=== PATIENT | female | born 1955 | race Caucasian/White ===

== ENCOUNTER 2021-09-21 14:22 | Emergency (ER) | payer MEDICARE, SELFPAY ==
[2021-09-21 14:23] VITALS: BP 188/133; PULSE 103; RESP 16; TEMP 36.4; O2SAT 100; BMI 27.3
--- NOTE | 2021-09-21 15:26 | CT_ITS ---
CT of the left leg without contrast INDICATION: Leg wound TECHNIQUE: Multiple thin section axial CT images of the left leg were obtained from the knee to the ankle without the administration of intravenous contrast and filmed in soft tissue and bone windows. Furthermore, multiple sagittal and coronal reconstructions were performed. Dose limiting techniques were utilized. FINDINGS: There is a linear defect within the soft tissues posterior medially medial to the gastrocnemius muscle filled with fluid and gas consistent with a laceration or infection. No definite loculated fluid collection to suggest hematoma or abscess. No acute fracture or dislocation. No lytic or blastic lesions. No bone destruction to suggest osteomyelitis. CT/Extremity Lower without Contra IMPRESSION: Laceration or infection with sinus tract posterior medially but no abscess or osteomyelitis. Electronically Signed: Amrik Gustafson MD at 16:55 EDT ,
--- NOTE | 2021-09-21 15:27 | EDS_ITS ---
HPI History of Present Illness Chief Complaint: Abscess Informant: patient Onset/Context/Timing Onset: Weeks Context: Gradual Onset Current Severity: Mild Maximum Severity: Moderate Narrative Narrative: Patient presents secondary to left posterior leg injury. She states that she fell going up some steps on August 25. She had a swollen wound on the back of her left leg. Over the past couple days it is opened and drained serosanguineous fluid. She went to urgent care who was concerned and sent her to the emergency room. She denies fever or chills. [facility] Medical History Addisons disease Fibromyalgia Hx of gastroesophageal reflux (GERD) Hypothyroidism Migraines Raynauds disease Home Medications doxycycline monohydrate 100 mg capsule 100 mg PO BID #20 caps 09/21/21 [Rx Last Taken Unknown] Allergy/AdvReac Type Severity Reaction Status Date / Time amoxicillin [From Trimox] Allergy Rash Verified 09/21/21 14:28 cyclobenzaprine Allergy Rash Verified 09/21/21 14:28 [From Flexeril] erythromycin base Allergy Vomiting Verified 09/21/21 14:28 [From Luis Fernando-Tab] Iodinated Contrast Media Allergy Rash Verified 09/21/21 14:28 Sulfa (Sulfonamide Allergy Rash Verified 09/21/21 14:28 Antibiotics) methylprednisolone AdvReac Other Verified 09/21/21 14:28 [From Medrol] Social History Smoking Status: Never smoker ROS ROS ED Constitutional Constitutional ED: Denies chills or fever(s) Eyes Eyes: Denies change in vision or discharge from eye(s) ENT ENT ED: Denies discharge from eye(s), rhinorrhea or sore throat Cardiovascular Cardiovascular: Denies chest pain or palpitations Respiratory/Chest Respiratory/Chest: Denies cough or dyspnea Gastrointestinal Gastrointestinal: Denies abdominal pain, diarrhea, nausea or vomiting Genitourinary Genitourinary ED: Denies difficulty urinating or dysuria Musculoskeletal Musculoskeletal: Reports extremity pain; Denies back pain Integumentary Reports other Details: Left posterior leg wound ; Denies Abrasions or rash Neurologic Neurologic: Denies headache(s) or weakness Psychiatric Psychiatric: Denies anxiety or depression Allergic/Immunologic Allergic/Immunologic ED: Denies lip swelling or urticaria EXAM Physical Exam Const Vital Signs: 09/21/21 14:23 Temperature 97.6 F L Temperature Source Temporal Pulse Rate 103 H Respiratory Rate 16 Blood Pressure 188/133 H Blood Pressure Mean 151 Pulse Ox 100 Oxygen Delivery Method Room Air Positive well nourished and well developed General Appearance ED: well developed HEENT Reports normocephalic and head/scalp atraumatic Eyes PERRL and EOMs intact bilaterally Neck supple Chest Wall inspection of chest normal and palpation of chest normal Resp normal respiratory effort and clear to auscultation bilaterally Cardio regular rate and regular rhythm GI normal to inspection, nondistended, normoactive bowel sounds Palpation: soft Extremity Extremity Narrative: Open wound measuring approximately 5 cm in diameter over the posterior left lower leg. Minimal surrounding erythema. Drainage is serosanguineous fluid only. Neuro oriented x3 and no sensory deficits noted Sensorium / Orientation: alert Motor Exam: strength 5/5 throughout Psych mental status grossly normal Skin no rashes or lesions noted MDM MDM MDM Narrative Medical decision making narrative: Lab work obtained and patient sent for a CT scan of the lower extremity. Lab Data Labs: Laboratory Results - last 24 hr 09/21/21 09/21/21 16:17 16:17 WBC 11.6 H RBC 4.49 Hgb 14.3 Hct 43.2 MCV 96.2 MCH 31.8 MCHC 33.1 RDW Std Deviation 44.3 H RDW Coeff of Amy 12.4 Plt Count 342 MPV 9.7 Immature Gran % (Auto) 0.600 Neut % (Auto) 67.7 Lymph % (Auto) 23.1 Kimball % (Auto) 7.2 Eos % (Auto) 0.9 Baso % (Auto) 0.5 Absolute Neuts (auto) 7.9 H Absolute Lymphs (auto) 2.68 Nucleated RBC % 0 Sodium 139 Potassium 3.5 Chloride 105 Carbon Dioxide 29.0 Anion Gap 5 BUN 14 Creatinine 0.74 Estim Creat Clear Calc 54.44 Est GFR (MDRD) Af Amer 100 Est GFR (MDRD) Non-Af 83 BUN/Creatinine Ratio 18.8 Glucose 169 H Calcium 8.8 Radiography Diagnostic Testing: Clinical Impression(s) from Imaging Studies Lower Extremity CT 09/21/21 15:26 IMPRESSION: Laceration or infection with sinus tract posterior medially but no abscess or osteomyelitis. Electronically Signed: Amrik Gustafson MD at 16:55 EDT , Treatment and Re-Evaluation Narrative: Lab work significant only for a white count 11.6 with normal differential. I suspect this may be secondary to her chronic steroid use given her [place]'s disease. Chemistry studies unremarkable. CT scan reveals laceration or infection with a sinus tract but no abscess or osteomyelitis. Clinically this looks like a drained hematoma. Will be cleansed and dressed. I will start her on doxycycline. She will be given the wound centers number for follow-up. Discharge Plan Triage Chief Complaint: Abscess ED Provider: Audrey Bell Dx/Rx/DC Orders Clinical Impression: Leg wound, left Instructions: ED Wound Care Prescriptions: New doxycycline monohydrate 100 mg capsule 100 mg PO BID Qty: 20 0RF Primary Care Provider: Care Physician,No Primary Referrals: NOT,DEFINED [Non-Staff] - Center,Wound [Non-Staff] - As soon as possible Disposition Disposition: Home, Self Care
[2021-09-21 16:33] LABS: Absolute Lymphocyte Count 2.68 X10^3/uL (0.83-4.51); Absolute Neutrophil Count 7.9 X10^3/uL (2.0-7.7); Basophil# 0.06 X10^3/uL; Basophil% 0.5 % (0-1); Eosinophils% 0.9 % (0-5); Hematocrit 43.2 % (37-47); Hemoglobin 14.3 g/dL (12.0-15.0); Lymphocyte # 2.68 X10^3/ul (0.83-4.51); Lymphocyte % 23.1 % (19-41); Mean Corp Hgb Conc 33.1 g/dL (32-36); Mean Corpuscular Hgb 31.8 pg (27.0-32.0); Mean Corpuscular Volume 96.2 fL (81-99); Mean Platelet Vol. 9.7 fl (6.2-12.0); Monocyte# 0.84 X10^3/uL; Monocyte% 7.2 % (0-10); NRBC Flagged by Analyzer 0 % (0-5); Neutrophil # 7.85 X10^3/uL (2.7-7.7); Neutrophil % 67.7 % (47-70); Platelet Count 342 K/mm3 (150-450); RBC Distribution Width CV 12.4 % (11.6-14.6); RBC Distribution Width SD 44.3 fl (35.1-43.9); Red Blood Count 4.49 M/mm3 (4.2-5.4); White Blood Count 11.6 K/mm3 (4.4-11.0)
[2021-09-21 16:46] LABS: Anion Gap 5 (5-15); BUN 14 mg/dL (7-18); BUN/Creat Ratio 18.8 RATIO (10-20); Calcium,Total 8.8 mg/dL (8.5-10.1); Chloride 105 mmol/L (98-107); Creatinine, Serum 0.74 mg/dL (0.55-1.02); EST Glomerular Filtration Rate 83 mL/min (>60); Est Glom Filt Rate - Afr Amer 100 mL/min (>60); Estimated Creatinine Clearance 54.44 ml/min; Glucose 169 mg/dL (74-106); Potassium 3.5 mmol/L (3.5-5.1); Sodium Level 139 mmol/L (136-145)
[2021-09-21] MEDS: Doxycycline 100 MG CAPSULE PO (17:45)
[2021-09-21 17:54] VITALS: BP 147/76; PULSE 97; RESP 18; O2SAT 99
== END 2021-09-21 17:58 | disposition home or self-care (01) ==
PROVIDERS: Emergency Provider Emergency Medicine; Visit Provider Emergency Medicine
DX: S81.802A Unspecified open wound, left lower leg, initial encounter (principal); E27.1 Primary adrenocortical insufficiency; W10.9XXA Fall (on) (from) unspecified stairs and steps, initial encounter; Z79.52 Long term (current) use of systemic steroids
CPT/HCPCS: 36415; 73700; 80048; 85025; 87040; 99284; A4216

== ENCOUNTER 2021-09-29 14:15 | Outpatient (RCR) | payer MEDICARE, SELFPAY ==
[2021-09-22 13:08] VITALS: RESP 16; TEMP 36.3
--- NOTE | 2021-09-22 16:38 | PCM.WC.HP ---
History of Present Illness Date of Service: 09/22/21 Chief Complaint: Left posterior leg wound History of Wound: Patient is a 66 year old female who presents today for evaluation of her left posterior leg wound. She fell walking up her steps in the dark and she hit her anterior left leg very hard on 08/25/21. A few days later she developed a bruise on the back of her left leg. She states that the bruise started to resolve but then she went square dancing two days in a row over the weekend, the wound opened and drained serosanguineous drainage and became very painful and red. She went to the ED yesterday,09/21/[address] scan was performed which showed Laceration or infection with sinus tract posterior medially but no abscess or osteomyelitis. She was started on Doxycycline. She has been placing a dressing that a friend gave her and she brought the packaging, but it is not in Vincentian. She states it is a moist, thick gauze. She has a history of chronic steroids due to [place]'s disease, hypothyroidism, osteopenia, migraines, right partial knee replacement, fibromyalgia, GERD, Raynaud's and multiple drug allergies. She lives in [place] but has been staying with family for a few weeks. Today she denies any fever, chills, nausea or vomiting. Progress of Wound: Left posterior wound with muscle exposure, there is non viable necrotic tissue surrounding the proximal edge of the wound. There is erythema surrounding the wound. It is very tender to palpation. [facility] Medical History Addisons disease Fibromyalgia Hx of gastroesophageal reflux (GERD) Hypothyroidism Migraines Raynauds disease Home Medications doxycycline monohydrate 100 mg capsule 100 mg PO BID #20 caps 09/21/21 [Rx Last Taken Unknown] Feverfew Tea 09/22/21 [History Last Taken Unknown] Chung Tea 1 DAILY 09/22/21 [History Last Taken Unknown] calcium carbonate 500 mg calcium (1,250 mg) chewable tablet 1,000 mg PO BID 09/22/21 [History Last Taken Unknown] cholecalciferol (vitamin D3) 25 mcg (1,000 unit) chewable tablet 25 mcg PO BID 09/22/21 [History Last Taken Unknown] dexamethasone 0.5 mg tablet 0.5 mg PO DAILY 09/22/21 [History Last Taken Unknown] diclofenac sodium 1 % topical gel ea topical PRN Pain 09/22/21 [History Last Taken Unknown] estradiol 1 mg tablet 1 mg PO DAILY 09/22/21 [History Last Taken Unknown] famotidine 20 mg tablet 20 mg PO BID 09/22/21 [History Last Taken Unknown] fludrocortisone 0.1 mg tablet 0.1 mg PO DAILY 09/22/21 [History Last Taken Unknown] levothyroxine 125 mcg capsule 125 mcg PO MOTUWETHFRSA 09/22/21 [History Last Taken Unknown] loperamide 2 mg capsule 2 mg PO Q4H PRN Diarrhea 09/22/21 [History Last Taken Unknown] loratadine 10 mg tablet 10 mg PO DAILY PRN Allergy Symptoms 09/22/21 [History Last Taken Unknown] milnacipran 50 mg tablet (Savella) 50 mg PO BID 09/22/21 [History Last Taken Unknown] omeprazole 20 mg tablet,delayed release 20 mg PO 09/22/21 [History Last Taken Unknown] ondansetron HCl 4 mg tablet 4 mg PO PRN Nausea 09/22/21 [History Last Taken Unknown] potassium chloride 20 mEq oral packet (Klor-Con) 30 meq PO DAILY 09/22/21 [History Last Taken Unknown] sumatriptan succinate 100 mg tablet (Imitrex) 100 mg PO PRN Migraine Headache 09/22/21 [History Last Taken Unknown] timolol 0.5 % eye drops 1 drp EACH EYE DAILY 09/22/21 [History Last Taken Unknown] vitamin B complex 1 tab PO DAILY 09/22/21 [History Last Taken Unknown] zoledronic acid 4 mg intravenous solution mg IV 09/22/21 [History Last Taken Unknown] Allergy/AdvReac Type Severity Reaction Status Date / Time adhesive Allergy Intermediate Rash Verified 09/22/21 22:26 amoxicillin [From Trimox] Allergy Rash Verified 09/21/21 14:28 cyclobenzaprine Allergy Rash Verified 09/21/21 14:28 [From Flexeril] erythromycin base Allergy Vomiting Verified 09/21/21 14:28 [From Luis Fernando-Tab] Iodinated Contrast Media Allergy Rash Verified 09/21/21 14:28 Sulfa (Sulfonamide Allergy Rash Verified 09/21/21 14:28 Antibiotics) bupropion [From Budeprion SR] AdvReac Other Verified 09/22/21 14:09 clonazepam AdvReac Other Verified 09/22/21 14:09 divalproex sodium AdvReac Other Verified 09/22/21 14:09 [From Depakote] duloxetine [From Cymbalta] AdvReac Other Verified 09/22/21 14:09 meperidine [From Demerol] AdvReac Other Verified 09/22/21 14:09 methylprednisolone AdvReac Other Verified 09/22/21 13:35 [From Medrol] Social History Smoking Status: Never smoker ROS Constitutional Constitutional: Reports as per HPI and chills Eyes Eyes: Reports as per HPI ENT HEENT: Reports none Cardiovascular Cardiovascular: Denies chest pain or dyspnea Respiratory/Chest Respiratory/Chest: Denies cough, dyspnea, shortness of breath at rest or shortness of breath with exertion Gastrointestinal Gastrointestinal: Reports heartburn; Denies diarrhea, nausea or vomiting Musculoskeletal Musculoskeletal: Reports extremity pain Integumentary Integumentary: Reports as per HPI and wounds Neurologic Neurologic: Reports as per HPI Psychiatric Psychiatric: Reports anxiety Endocrine Endocrinology: Reports as per HPI Allergic/Immunologic Allergic/Immunologic: Reports as per HPI Vital Signs Vital Signs Vital Signs: 09/22/21 13:08 Temperature 97.3 F L Temperature Source Temporal Respiratory Rate 16 Oxygen Delivery Method Room Air Physical Exam Const alert, oriented x3 and no apparent distress General Appearance: cooperative HEENT normocephalic Neck full ROM Resp normal respiratory effort, normal air movement and clear to auscultation bilaterally Effort and Inspection: able to speak in complete sentences Cardio regular rate and regular rhythm Peripheral Pulses: dorsalis pedis pulses present GI soft to palpation and non-tender Extremity full ROM and normal capillary refill Extremity Narrative: +2 edema left leg Peripheral Pulses: Yes dorsalis pedis pulses present Skin Wound Narrative: Left posterior wound with muscle exposure and 2.7 cm depth. Able to visualize the muscle movement with foot flexion and extension. There is non viable necrotic tissue surrounding the proximal edge of the wound. There is erythema surrounding the wound. It is very tender to palpation. Did not fully explore the entire depth of the wound due to the discomfort with palpation. Neuro oriented x3 and moves all extremities Psych mental status grossly normal Appearance: grossly normal Debridement Note Debridement Note Wound debrided: Posterior leg wound Laterality: Left Wound Grade/Stage: Stage IV Type of Debridement: Selective debridement Anesthesia Used: 4% Lidocaine Solution Depth: Down to and including healthy tissue and in the subcutaneous layer Percentage of wound debrided: 20 Instrument Used: #15 blade Tissue Removed: Necrotic tissue covering the wound and along the edges. Severity: Fat Layer Exposed Amount of bleeding with debridement: Mild Bleeding Controlled with: Compression and gauze Patient tolerated procedure: Patient tolerated procedure well Debridement Free Text: Subcutaneous debridement not performed. After assessing the wound, will refer her to a surgeon for evaluation. Post-Debridement Measurements and Additional Note: Post-Debridement Measurements/Treatment - Nurse 1 - General Ulcer Assessment Start: 09/22/21 13:08 Freq: Status: Active Protocol: AKIN Activity Type Activity Date Activity User E-sign Co-sign Detail Recorded Client Recorded Date Recorded By Document 09/22/21 13:08 [facility] [id number] 09/22/21 13:30 [facility] 09/22/21 13:08 - Today's Visit Information Type of service Initial Visit Arrival Mode Ambulatory Transfer Assistance None Accompanied by sister in law Patient Identification Verified (Name & Yes ) Patient Requires Transmission-Based No Precautions Vital Signs Temperature (97.8 F-99.1 F) 97.3 F L Temperature Source Temporal Respiratory Rate (12-18) 16 Respiratory rate source Observation Oxygen Delivery Method Room Air History Since Last Visit- (Skip if this is Patient's initial visit) Left Footwear Regular Shoe Right Footwear Regular Shoe Pain Scale: 0-10 Numeric Is Patient Pain Free? Yes Lower Extremity Assessment/ Foot Assessment/ Toe Nail Assessment Right -Posterior Tibial Palpable No -Posterior Tibial Doppler Multiphasic -Dorsalis Pedis Palpable Yes -Dorsalis Pedis Doppler Multiphasic -Extremity Color Pale -Hair Growth on Legs Yes -Hair Growth on Toes No -Temperature of Extremity Cool -Thick No -Discolored No -Deformed No -Improper Length & Hygeine No Left -Posterior Tibial Doppler Monophasic -Dorsalis Pedis Doppler Multiphasic -Extremity Color Pale -Hair Growth on Legs Yes -Hair Growth on Toes No -Temperature of Extremity Cool -Capillary Refill Greater than 3 Seconds -Thick No -Discolored No -Deformed No -Improper Length & Hygeine No Neuropathy Assessment Feet - Top Side and Bottom <Entered> (a) Communication Assessment Preferred language Vincentian Deputy Probation Officer Required No Able to Read Yes Able to Write Yes Communication Tools None Right Hearing Abillity Normal Left Hearing Abillity Normal Visual Assistive Devices None Teaching Assessment Preferences Verbal,Written, Audio/Visual, Demonstration Barriers to Learning None Readiness To Learn Excellent Willingness to Engage in Self Management High Activies Readiness to Engage in Self Management High Activities Anxiety Level Anxious Cooperation Uncooperative Perception Coherent Interest in Health Problem Asks Questions Education Importance Acknowledges Need Does Patient Smoke tobacco or other No substances Smoking Status Never smoker Is Patient Diabetic Yes Functional Assessment Recent Decline in Ability to Perform Ambulation Culture/Worship/Ged Preparation Teacher Cultural/Worship Needs that may affect No Treatment Plan (a) 1 - + WC - Nurse 1 - General Ulcer Measurement Start: 09/22/21 13:08 Freq: Status: Active Protocol: Activity Type Activity Date Activity User E-sign Co-sign Detail Recorded Client Recorded Date Recorded By Document 09/22/21 13:08 [facility] [id number] 09/22/21 13:30 [facility] 09/22/21 13:08 Wound Center Nurse 1 #1- L POST LE (TRAUMA/POST FALL) -Combined with other wound No -Current Size (cm) - Length 4.8 -Current Size (cm) - Width 5.4 -Current Size (cm) - Depth 2 -Total Square Cm 25.92 -Date of Last Picture (Recall this 09/22/21 field) -Photo Taken Yes -Epithelialization None Present -Tunneling No -Undermining/Tunneling No -Circular Undermining No -Exudate Amt Large -Exudate Type Purulent -Wound Margin Distinct, Outline Attached -Granulation Amt Small (1-33%) -Granulation Quality Red -Slough/Fibrin Yes -Necrosis Amt Large (67-100%) -Necrotic Tissue Type Eschar -Texture (Kath-wound Skin Appearance) Assessed, Scarring -Moisture (Kath-wound Skin Appearance) Assessed -Color (Kath-wound Skin Appearance) Assessed, Erythema -Temperature (Kath-wound Skin No Abnormality Appearance) (Pt Warm) -Tenderness on Palpation (Kath-wound Yes Skin Appearance) -Ulcer Cleansing Soap and Water -Foul Odor after Cleansing No -Anesthetic Used 4% Lidocaine Solution Right Calf (cm) 35.2 Right Ankle (cm) 22.3 Left Calf (cm) 35.7 Left Ankle (cm) 24.2 WC - Nurse 2 - General Ulcer CM Notes Start: 09/22/21 13:08 Freq: Status: Active Protocol: Activity Type Activity Date Activity User E-sign Co-sign Detail Recorded Client Recorded Date Recorded By Document 09/22/21 14:13 TIA [id number] 09/22/21 14:15 JF Edit Result 09/22/21 14:13 JF (1) [id number] 09/22/21 16:03 JF (1) #1- L POST LE (TRAUMA/POST FALL) - Tissue Removed Epidermis,Dermis, => Epidermis,Dermis Muscle => 09/22/21 14:13 Wound Center Nurse 2 #1- L POST LE (TRAUMA/POST FALL) -Time 14:13 -Correct Patient Yes -Correct Side, Site, Position Yes -Correct Procedure Yes -Procedure Performed Yes -Type of Procedure Debridement -Clinical Debridement Epidermis / Dermis -Tissue Removed Epidermis, Dermis -Post Debridement (cm) - Length 5.2 -Post Debridement (cm) - Width 4.5 -Post Debridement (cm) - Depth 2.7 -Total Square (Post) (cm) 23.40 -Area of Debridement (cm) - Length 5.2 -Area of Debridement (cm) - Width 4.5 -Total Square (Area) (cm) 23.40 -Tunneling No -Undermining/Tunneling No -Circular Undermining No -Wound/Ulcer Outcome Not Healed -Ulcer Cleansing Rinsed/ Irrigated with Saline -Foul Odor after Cleansing No -Bioengineered Tissue No -Bleeding Controlled with Pressure -Treatment Response Procedure Tolerated Well -Offloading No -Debridement - Open, 1st 20sq cm Yes -Debridement, Open, ea addt'l 20sq cm 1 or part thereof Pain Scale: 0-10 Numeric Is Patient Pain Free? Yes WC - Nurse 3 - General Ulcer D/C NN Start: 09/22/21 13:08 Freq: Status: Active Protocol: Activity Type Activity Date Activity User E-sign Co-sign Detail Recorded Client Recorded Date Recorded By Document 09/22/21 14:42 [facility] [id number] 09/22/21 14:43 [facility] 09/22/21 14:42 Wound Care Nurse 3 #1- L POST LE (TRAUMA/POST FALL) -Ulcer Cleansing Rinsed/ Irrigated with Saline -Foul Odor after Cleansing No -Primary Dressing Applied Silvercel -Other Dressing DRSG PER MW RN -Primary Dressing Covered/Secured with Other -Other Covering SECURED W/ [place] -Silvercel 1 Left -Compression Wrap Miquel Wrap Treatment Response Procedure Tolerated Well Pain Scale: 0-10 Numeric Is Patient Pain Free? Yes WC - Visit Discharge Discharge Condition Stable Ambulatory Status Ambulatory Transportation Private Auto Accompanied by SISTER IN LAW Charges/Coding Addendum Addendum: Selective debridement 53221 & 13528 Visit Charges Office Visits / Consults: 09889 OV L4 Est (25 modifier) Assessment/Plan Assessment/Plan (1) Leg wound, left: CODE(S): S81.802A - Unspecified open wound, left lower leg, initial encounter (2) Traumatic hematoma of right lower leg with infection: CODE(S): S80.11XA - Contusion of right lower leg, initial encounter; L08.9 - Local infection of the skin and subcutaneous tissue, unspecified (3) Current chronic use of systemic steroids: CODE(S): Z79.52 - cra (current) use of systemic steroids PLAN: Plan Patient was evaluated at the wound center today. A selective debridement was performed. After evaluating her left posterior leg wound, I contacted Dr. Verma to see if he would be able to evaluate her wound for a possible operative debridement. I have concerns with the depth, color, and the amount of erythema surrounding the wound. With her significant medical history of being on slasher hand steroids, it would be in the best interest of the patient to have a surgeon evaluate her. Wound care - Pack Silvercel into the depth of the wound and cover wound with Silvercel and top with gauze/ABD. May wash the wound with soap and water daily at the time of the dressing changes. Place MIQUEL wrap for compression at this time. Encouraged increased protein intake. Discussed what is considered protein and that she may need to also increase her fiber or take stool softener to prevent constipation. Start taking Vitamin C 1,000 mg daily. Will refer to Dr. Verma to see renzo. Follow up with me in one week.
[2021-09-29 14:00] VITALS: RESP 18; TEMP 36.2
--- NOTE | 2021-09-29 16:39 | PCM.WC.PN ---
History of Present Illness Date of Service: 09/29/21 Chief Complaint: Left posterior leg wound History of Wound: Patient is a 66 year old female who presents today for evaluation of her left posterior leg wound. She fell walking up her steps in the dark and she hit her anterior left leg very hard on 08/25/21. A few days later she developed a bruise on the back of her left leg. She states that the bruise started to resolve but then she went square dancing two days in a row over the weekend, the wound opened and drained serosanguineous drainage and became very painful and red. She went to the ED yesterday,09/21/[address] scan was performed which showed Laceration or infection with sinus tract posterior medially but no abscess or osteomyelitis. She was started on Doxycycline. She has been placing a dressing that a friend gave her and she brought the packaging, but it is not in [place] Citizen. She states it is a moist, thick gauze. 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 She lives in [place] but has been staying with family for a few weeks. She has seen Dr. Verma and he is taking her to the OR for an operative debridement on 10/07/21. Wound care - Dakins 0.25% moistened gauzed packed into the wound and topped with gauze. Today she denies any fever, chills, nausea or vomiting. Progress of Wound: Left posterior wound with muscle exposure, there is non viable tissue and slough in the wound It is very tender to palpation. Objective Data Objective Data Vital Signs: Vital Signs Temp Resp O2 Del Method 97.2 F L 18 Room Air 09/29/21 14:00 09/29/21 14:00 09/29/21 14:00 Oxygen Delivery Method Room Air Charges/Coding Visit Charges Office Visits / Consults: [id number] OV L3 Est Physical Exam Const alert and oriented x3 General Appearance: cooperative HEENT normocephalic Resp normal respiratory effort, normal air movement and clear to auscultation bilaterally Effort and Inspection: able to speak in complete sentences Cardio regular rate and regular rhythm Peripheral Pulses: dorsalis pedis pulses present Extremity full ROM and normal capillary refill Extremity Narrative: +2 edema left leg Peripheral Pulses: Yes dorsalis pedis pulses present Skin Wound Narrative: Left posterior wound with muscle exposure and significant depth. There is nonviable tissue present. The erythema surrounding the wound has diminished. It is very tender to palpation. Neuro moves all extremities Psych mental status grossly normal Debridement Note Debridement Note No debridement was completed: No debridement was completed today Post-Debridement Measurements and Additional Note: Post-Debridement Measurements/Treatment - Nurse 1 - General Ulcer Assessment Start: 09/22/21 13:08 Freq: Status: Active Protocol: AKIN Activity Type Activity Date Activity User E-sign Co-sign Detail Recorded Client Recorded Date Recorded By Document 09/22/21 13:08 [facility] [id number] 09/22/21 13:30 [facility] Document 09/29/21 14:00 [facility] [id number] 09/29/21 14:10 [facility] 09/22/21 09/29/21 13:08 14:00 - Today's Visit Information Type of service Initial Visit Follow-up Visit (Physician/TRIM TECHNICIAN ) Arrival Mode Ambulatory Ambulatory Transfer Assistance None None Accompanied by sister in law SISTER IN LAW Patient Identification Verified (Name & Yes Yes ) Patient Requires Transmission-Based No No Precautions Vital Signs Temperature (97.8 F-99.1 F) 97.3 F L 97.2 F L Temperature Source Temporal Temporal Respiratory Rate (12-18) 16 18 Respiratory rate source Observation Observation Oxygen Delivery Method Room Air Room Air Comment PT REFUSES BP History Since Last Visit- (Skip if this is Patient's initial visit) Have you changed medications since your No last visit? Any new allergies or adverse reactions No Had a fall/change in ADL's that may No increase risk of falls Signs or symptoms of abuse and/or No neglect since last visit Have you been in the hospital since your No last visit? Has dressing in place as prescribed Yes Has compression in place as prescribed Yes Has offloadiing in place as prescribed N/A Experienced any changes in pain level or No management Left Footwear Regular Shoe Regular Shoe Right Footwear Regular Shoe Regular Shoe Pain Scale: 0-10 Numeric Is Patient Pain Free? Yes Yes Lower Extremity Assessment/ Foot Assessment/ Toe Nail Assessment Right -Posterior Tibial Palpable No -Posterior Tibial Doppler Multiphasic -Dorsalis Pedis Palpable Yes -Dorsalis Pedis Doppler Multiphasic -Extremity Color Pale -Hair Growth on Legs Yes -Hair Growth on Toes No -Temperature of Extremity Cool -Thick No -Discolored No -Deformed No -Improper Length & Hygeine No Left -Posterior Tibial Doppler Monophasic -Dorsalis Pedis Doppler Multiphasic -Extremity Color Pale -Hair Growth on Legs Yes -Hair Growth on Toes No -Temperature of Extremity Cool -Capillary Refill Greater than 3 Seconds -Thick No -Discolored No -Deformed No -Improper Length & Hygeine No Neuropathy Assessment Feet - Top Side and Bottom <Entered> (a) Communication Assessment Preferred language [place] Citizen Decision Unit Rn Required No Able to Read Yes Able to Write Yes Communication Tools None Right Hearing Abillity Normal Left Hearing Abillity Normal Visual Assistive Devices None Teaching Assessment Preferences Verbal,Written, Audio/Visual, Demonstration Barriers to Learning None Readiness To Learn Excellent Willingness to Engage in Self Management High Activies Readiness to Engage in Self Management High Activities Anxiety Level Anxious Cooperation Uncooperative Perception Coherent Interest in Health Problem Asks Questions Education Importance Acknowledges Need Does Patient Smoke tobacco or other No substances Smoking Status Never smoker Is Patient Diabetic Yes Functional Assessment Recent Decline in Ability to Perform Ambulation Culture/Hoahaoism/Youtuber Cultural/Hoahaoism Needs that may affect No Treatment Plan (a) 1 - + WC - Nurse 1 - General Ulcer Measurement Start: 09/22/21 13:08 Freq: Status: Active Protocol: Activity Type Activity Date Activity User E-sign Co-sign Detail Recorded Client Recorded Date Recorded By Document 09/22/21 13:08 [facility] [id number] 09/22/21 13:30 [facility] Document 09/29/21 14:00 [facility] [id number] 09/29/21 14:10 [facility] 09/22/21 09/29/21 13:08 14:00 Wound Center Nurse 1 #1- L POST LE (TRAUMA/POST FALL) -Combined with other wound No No -Current Size (cm) - Length 4.8 4.6 -Current Size (cm) - Width 5.4 5.3 -Current Size (cm) - Depth 2 1.5 -Total Square Cm 25.92 24.38 -Date of Last Picture (Recall this 09/22/21 09/29/21 field) -Photo Taken Yes Yes -Epithelialization None Present None Present -Tunneling No No -Undermining/Tunneling No Yes -Undermining/Tunneling Starts (O'clock 6 ) -Undermining/Tunneling Ends (O'clock) 7 -Maximum Distance (cm) 1.3 -Circular Undermining No No -Exudate Amt Large Large -Exudate Type Purulent Serosanguineous -Wound Margin Distinct, Distinct, Outline Outline Attached Attached -Granulation Amt Small (1-33%) Medium (34-66%) -Granulation Quality Red Pale,Red -Slough/Fibrin Yes Yes -Necrosis Amt Large (67-100%) Medium (34-66%) -Necrotic Tissue Type Eschar Adherent Slough -Texture (Kath-wound Skin Appearance) Assessed, Assessed, Scarring Scarring -Moisture (Kath-wound Skin Appearance) Assessed Assessed,Dry/ Scaly -Color (Kath-wound Skin Appearance) Assessed, Assessed Erythema -Temperature (Kaht-wound Skin No Abnormality No Abnormality Appearance) (Pt Warm) (Pt Warm) -Tenderness on Palpation (Kath-wound Yes No Skin Appearance) -Ulcer Cleansing Soap and Water Soap and Water -Foul Odor after Cleansing No No -Anesthetic Used 4% Lidocaine 5% Lidocaine Solution Gel Lower Limb Edema Present Yes Right Calf (cm) 35.2 Right Ankle (cm) 22.3 Left Calf (cm) 35.7 36.5 Left Ankle (cm) 24.2 22 WC - Nurse 2 - General Ulcer CM Notes Start: 09/22/21 13:08 Freq: Status: Active Protocol: Activity Type Activity Date Activity User E-sign Co-sign Detail Recorded Client Recorded Date Recorded By Document 09/22/21 14:13 TIA [id number] 09/22/21 14:15 Edit Result 09/22/21 14:13 TIA (1) [id number] 09/22/21 16:03 JF Document 09/29/21 14:24 TIA [id number] 09/29/21 14:33 TIA (1) #1- L POST LE (TRAUMA/POST FALL) - Tissue Removed Epidermis,Dermis, => Epidermis,Dermis Muscle => 09/22/21 09/29/21 14:13 14:24 Wound Center Nurse 2 #1- L POST LE (TRAUMA/POST FALL) -Time 14:13 -Correct Patient Yes No -Correct Side, Site, Position Yes No -Correct Procedure Yes No -Procedure Performed Yes No -Type of Procedure Debridement -Clinical Debridement Epidermis / Dermis -Tissue Removed Epidermis, Dermis -Post Debridement (cm) - Length 5.2 -Post Debridement (cm) - Width 4.5 -Post Debridement (cm) - Depth 2.7 -Total Square (Post) (cm) 23.40 -Area of Debridement (cm) - Length 5.2 -Area of Debridement (cm) - Width 4.5 -Total Square (Area) (cm) 23.40 -Tunneling No -Undermining/Tunneling No -Circular Undermining No -Wound/Ulcer Outcome Not Healed Not Healed -Ulcer Cleansing Rinsed/ Irrigated with Saline -Foul Odor after Cleansing No -Bioengineered Tissue No -Bleeding Controlled with Pressure -Treatment Response Procedure Tolerated Well -Offloading No -Debridement - Open, 1st 20sq cm Yes -Debridement, Open, ea addt'l 20sq cm 1 or part thereof Pain Scale: 0-10 Numeric Is Patient Pain Free? Yes Yes WC - Nurse 3 - General Ulcer D/C NN Start: 09/22/21 13:08 Freq: Status: Active Protocol: Activity Type Activity Date Activity User E-sign Co-sign Detail Recorded Client Recorded Date Recorded By Document 09/22/21 14:42 [facility] [id number] 09/22/21 14:43 [facility] Document 09/29/21 14:49 [id number] 09/29/21 14:51 MW 09/22/21 09/29/21 14:42 14:49 Wound Care Nurse 3 #1- L POST LE (TRAUMA/POST FALL) -Ulcer Cleansing Rinsed/ Rinsed/ Irrigated with Irrigated with Saline Saline -Foul Odor after Cleansing No No -Negative Pressure Wound Therapy N/A -Primary Dressing Applied Silvercel -Other Dressing DRSG PER MW RN saline wet to dry -Primary Dressing Covered/Secured with Other Dry Gauze & Roll Gauze, Secured with Tape -Other Covering SECURED W/ coban to secure COBAN -Silvercel 1 Left -Compression Wrap Miquel Wrap Treatment Response Procedure Procedure Tolerated Well Tolerated Well Pain Scale: 0-10 Numeric Is Patient Pain Free? Yes Yes Teaching: Wound Center Dressing Your Wound -Person Taught Patient -Teaching Method Discussion -Response to teaching Verbalize understanding Skin Care -Person Taught Patient,Family -Teaching Method Discussion -Response to teaching Verbalize understanding WC - Visit Discharge Discharge Condition Stable Stable Ambulatory Status Ambulatory Ambulatory Transportation Private Auto Private Auto Accompanied by SISTER IN LAW self Medication Reconcilliation completed & No provided to patient/care provider Clinical Summary of Care Provided Yes Assessment/Plan Assessment/Plan (1) Leg wound, left: CODE(S): S81.802A - Unspecified open wound, left lower leg, initial encounter (2) Traumatic hematoma of right lower leg with infection: CODE(S): S80.11XA - Contusion of right lower leg, initial encounter; L08.9 - Local infection of the skin and subcutaneous tissue, unspecified (3) Current chronic use of systemic steroids: CODE(S): Z79.52 - oysterman (current) use of systemic steroids PLAN: Plan Patient was evaluated at the wound center today. A debridement was deferred due to her having an operative debridement by Dr. Verma on 10/07/21. Wound care - Dakins 0.25% moistened gauze into the depth of the wound and cover wound with gauze/ABD. May wash the wound with soap and water daily at the time of the dressing changes. Place MIQUEL wrap for compression at this time. Encouraged increased protein intake. Discussed what is considered protein and that she may need to also increase her fiber or take stool softener to prevent constipation. Start taking Vitamin C 1,000 mg daily. Follow up with me next Tuesday after her surgery, unless Dr. Verma wants to see her in his office first.
== END 2021-10-07 23:59 | disposition home or self-care (01) ==
LOC: WC 14:15
PROVIDERS: Visit Provider Nurse Practitioner Family
DX: S81.802A Unspecified open wound, left lower leg, initial encounter (principal); S80.12XA Contusion of left lower leg, initial encounter; L08.9 Local infection of the skin and subcutaneous tissue, unspecified; W10.9XXA Fall (on) (from) unspecified stairs and steps, initial encounter; E03.9 Hypothyroidism, unspecified; E27.1 Primary adrenocortical insufficiency; M79.7 Fibromyalgia; I73.00 Raynaud's syndrome without gangrene; K21.9 Gastro-esophageal reflux disease without esophagitis; G43.909 Migraine, unspecified, not intractable, without status migrainosus; M85.861 Other specified disorders of bone density and structure, right lower leg; Z79.890 Hormone replacement therapy; Z79.899 Other long term (current) drug therapy; Z96.651 Presence of right artificial knee joint
CPT/HCPCS: 97597; 97598; 99213; G0463

== ENCOUNTER 2021-10-07 12:30 | Day surgery (SDC) | payer MEDICARE, SELFPAY ==
[2021-10-05 10:31] LABS: Hematocrit 44.5 % (37-47); Hemoglobin 14.8 g/dL (12.0-15.0); Mean Corp Hgb Conc 33.3 g/dL (32-36); Mean Corpuscular Volume 96.1 fL (81-99); Mean Platelet Vol. 9.6 fl (6.2-12.0); Platelet Count 311 K/mm3 (150-450); RBC Distribution Width CV 12.6 % (11.6-14.6); RBC Distribution Width SD 44.1 fl (35.1-43.9); Red Blood Count 4.63 M/mm3 (4.2-5.4); White Blood Count 12.9 K/mm3 (4.4-11.0)
[2021-10-05 10:58] LABS: Anion Gap 7 (5-15); BUN 13 mg/dL (7-18); BUN/Creat Ratio 16.5 RATIO (10-20); Calcium,Total 9.1 mg/dL (8.5-10.1); Chloride 102 mmol/L (98-107); Creatinine, Serum 0.79 mg/dL (0.55-1.02); EST Glomerular Filtration Rate 78 mL/min (>60); Est Glom Filt Rate - Afr Amer 94 mL/min (>60); Glucose 157 mg/dL (74-106); Sodium Level 138 mmol/L (136-145)
[2021-10-07] MEDS: Lactated Ringers 1,000 ML 15 ML IV (12:50)
[2021-10-07 13:02] VITALS: BP 168/86; PULSE 118; RESP 16; TEMP 36.8; O2SAT 100; BMI 27.7
--- NOTE | 2021-10-07 14:28 | PCM.HP.BLA ---
History and Physical Intake Vital Signs ? 09/21/2213:23 09/24/2210:21 Height 5 ft ? Weight: 140 lb ? BMI 27.3 ? BP 188/133 H ? Respiration 16 18 Pulse 103 H 100 Pulse Source ? Auscultation Temp 97.6 F L ? Temp Source Temporal ? Pulse Oximetry (%) 100 99 Intake Visit Reasons:?Surgical debridement Chief Complaint: wound Accompanied by: Friend Is patient in pain?: Yes Allergies adhesive Allergy (Intermediate, Verified 09/24/21 11:15) Rashamoxicillin [From Trimox] Allergy (Verified 09/24/21 11:15) Rashcyclobenzaprine [From Flexeril] Allergy (Verified 09/24/21 11:15) Rasherythromycin base [From Luis Fernando-Tab] Allergy (Verified 09/24/21 11:15) VomitingIodinated Contrast Media Allergy (Verified 09/24/21 11:15) RashSulfa (Sulfonamide Antibiotics) Allergy (Verified 09/24/21 11:15) Rashbupropion [From Budeprion SR] Adverse Reaction (Verified 09/24/21 11:15) Otherclonazepam Adverse Reaction (Verified 09/24/21 11:15) Otherdivalproex sodium [From Depakote] Adverse Reaction (Verified 09/24/21 11:15) Otherduloxetine [From Cymbalta] Adverse Reaction (Verified 09/24/21 11:15) Othermeperidine [From Demerol] Adverse Reaction (Verified 09/24/21 11:15) Othermethylprednisolone [From Medrol] Adverse Reaction (Verified 09/24/21 11:15) Other Medications doxycycline monohydrate 100 mg capsule 100 mg PO BID #20 caps 09/21/21 [Rx Confirmed 09/24/21] Feverfew Tea? 09/22/21 [History Confirmed 09/24/21] Chung Tea 1 DAILY 09/22/21 [History Confirmed 09/24/21] calcium carbonate 500 mg calcium (1,250 mg) chewable tablet 1,000 mg PO BID 09/22/21 [History Confirmed 09/24/21] cholecalciferol (vitamin D3) 25 mcg (1,000 unit) chewable tablet 25 mcg PO BID 09/22/21 [History Confirmed 09/24/21] dexamethasone 0.5 mg tablet 0.5 mg PO DAILY 09/22/21 [History Confirmed 09/24/21] diclofenac sodium 1 % topical gel ea topical PRN Pain 09/22/21 [History Confirmed 09/24/21] estradiol 1 mg tablet 1 mg PO DAILY 09/22/21 [History Confirmed 09/24/21] famotidine 20 mg tablet 20 mg PO BID 09/22/21 [History Confirmed 09/24/21] fludrocortisone 0.1 mg tablet 0.1 mg PO DAILY 09/22/21 [History Confirmed 09/24/21] levothyroxine 125 mcg capsule 125 mcg PO MOTUWETHFRSA 09/22/21 [History Confirmed 09/24/21] loperamide 2 mg capsule 2 mg PO Q4H PRN Diarrhea 09/22/21 [History Confirmed 09/24/21] loratadine 10 mg tablet 10 mg PO DAILY PRN Allergy Symptoms 09/22/21 [History Confirmed 09/24/21] milnacipran 50 mg tablet (Savella) 50 mg PO BID 09/22/21 [History Confirmed 09/24/21] omeprazole 20 mg tablet,delayed release 20 mg PO 09/22/21 [History Confirmed 09/24/21] ondansetron HCl 4 mg tablet 4 mg PO PRN Nausea 09/22/21 [History Confirmed 09/24/21] potassium chloride 20 mEq oral packet (Klor-Con) 30 meq PO DAILY 09/22/21 [History Confirmed 09/24/21] sumatriptan succinate 100 mg tablet (Imitrex) 100 mg PO PRN Migraine Headache 09/22/21 [History Confirmed 09/24/21] timolol 0.5 % eye drops 1 drp EACH EYE DAILY 09/22/21 [History Confirmed 09/24/21] vitamin B complex 1 tab PO DAILY 09/22/21 [History Confirmed 09/24/21] zoledronic acid 4 mg intravenous solution mg IV 09/22/21 [History Confirmed 09/24/21] PFSH Medical History? Addisons disease Fibromyalgia Hx of gastroesophageal reflux (GERD) Hypothyroidism Migraines Raynauds disease Social History? Smoking Status:? Never smoker ROS General General: Yes fatigue; No weight change, appetite, colon cancer, breast cancer or weakness HEENT HEENT: No difficulty swallowing, eye injury, eye surgery, swollen glands or hoarseness Endo Endocrine: Yes thyroid disease; No diabetes mellitus, thyroid cancer, Hair loss, heat intolerance or cold intolerance Skin Skin: No rash or changing moles Musc Musculoskeletal: No back problems, arthritis, rheumatoid arthritis, gout or joint pain Cardio Cardiovascular: No murmur, pacemaker, heart disease, atrial fibrillation, high blood pressure, heart attack, heart stent, palpitations, shortness of breat with exertion or chest pain Psych Psychiatric: No depression, anxiety or hearing voices Resp Respiratory: No shortness of breath, No sleep apnea, No cough, No COPD, No asthma, No emphysema and No wheezing Gastro Gastrointestinal: No abdominal pain, No nausea or vomiting, No diarrhea, Yes constipation, No blood in stool, Yes acid reflux, Yes hemorrhoids, No ulcers, No gallbladder problem and No black,tarry stools German Hematologic: No blood thinners, No blood disorders, No bleeding, No anemia and No blood clots Neuro Neurologic: No system reviewed and no additional complaints, except as documented, No as per HPI, No abnormal gait, No abnormal hearing, No abnormal movements, No abnormal speech, No behavioral changes, No burning sensations, No confusion, No convulsions, No disequilibrium, No dizziness, No localized weakness, No frequent falls, No headache(s), No lack of coordination, No loss of vision, No memory loss, No numbness, No other visual disturbances, No radicular pain, No restless legs, No sensory deficit, No syncope, No tingling, No tremor(s), No weakness and No other Assessment and Plan Assessment and Plan (1) Leg wound, left: ?Status:?Acute ?Plan: -traumatic wound with poor healing, necrotic tissue present, unable to tolerate debridement in office -will plan to debride in OR
[2021-10-07] MEDS: Vancomycin IV 1,000 MG/20 ML Vial 1000 MG OPERA.SITE (14:30)
[2021-10-07 15:11] VITALS: BP 147/76; BP 168/86; PULSE 115; RESP 20; TEMP 36.2; O2SAT 98
[2021-10-07 15:20] VITALS: BP 143/63; BP 168/86; PULSE 112; RESP 20; O2SAT 94
[2021-10-07 15:41] VITALS: BP 136/79; BP 168/86; PULSE 110; RESP 18; TEMP 35.9; O2SAT 100
--- NOTE | 2021-10-07 15:56 | PCM.OPRPT ---
Report of Operation Date of Procedure: 10/07/21 Pre-Operative Diagnosis: Chronic wound of the posterior left lower extremity Post-Operative Diagnosis: Same Surgery/Procedure Performed:: Debridement down to muscle and/or fascia wound 7x7 cm Surgeon: Chandler Verma Type of Anesthesia: General Description of Procedure: HPI: Patient is a 66-year-old female with an initial traumatic wound of the left lower extremity which has been slow to heal and has developed some necrotic tissue within the depths of the wound. She not tolerate debridement of wound care and she was referred for operative debridement. She taken down for debridement under general anesthetic. Description of procedure: Upon potential informed consent and verification correct patient procedure site patient taken the operating room where she was placed under anesthesia. She was then positioned prepped and draped in usual sterile fashion a time was performed. Sharp debridement of the wound bed and wound castillo was performed with scissors and a curette. There is a moderate amount of fibrinous and necrotic tissue particularly in the deeper aspects of the wound. The majority of the superficial wound was healthy with good granulation tissue. Once satisfactory clearance of all of the necrotic and fibrinous tissue was performed the wound was then irrigated with saline and vancomycin. The wound was then inspected for hemostasis and limited Bovie used for superficial oozing. Once her satisfactory hemostasis the wound was packed with vancomycin soaked gauze followed by Aquacel Ag and a Kerlix and an Miquel. This point patient was awakened from anesthesia taken recovery anticipated discharged home.
[2021-10-07 16:08] VITALS: BP 168/86
== END 2021-10-07 16:18 | disposition home or self-care (01) ==
LOC: SDC 12:31 → AC 12:32
PROVIDERS: Referring Provider Surgery Trauma Surgery; Visit Provider Surgery Trauma Surgery
PROC: (CPT 11043; principal; 2021-10-07 13:50)
DX: S81.802S Unspecified open wound, left lower leg, sequela (principal); E27.1 Primary adrenocortical insufficiency; M79.7 Fibromyalgia; E03.9 Hypothyroidism, unspecified; I73.00 Raynaud's syndrome without gangrene; K21.9 Gastro-esophageal reflux disease without esophagitis; Z79.899 Other long term (current) drug therapy; Z79.890 Hormone replacement therapy; L08.9 Local infection of the skin and subcutaneous tissue, unspecified; S80.12XS Contusion of left lower leg, sequela; X58.XXXS Exposure to other specified factors, sequela
CPT/HCPCS: 11043; 11046 ×2; 01470; 36415; 80048; 85027; J7120; J2405

== ENCOUNTER 2021-10-20 09:38 | Inpatient (IN) | payer MEDICARE, SELFPAY ==
[2021-10-20] VITALS (22 sets, daily range): BP systolic 113–174; BP diastolic 71–104; PULSE 78–120; RESP 14–22; TEMP 36–36.9; O2SAT 90–103; BMI 28.3; BMI 28.5
--- NOTE | 2021-10-20 09:52 | EKG12_ITS ---
Test Reason : cp Blood Pressure : / mmHG Vent. Rate : 097 BPM Atrial Rate : 097 BPM P-R Int : 106 ms QRS Dur : 074 ms QT Int : 332 ms P-R-T Axes : 027 001 035 degrees QTc Int : 421 ms Sinus rhythm with short CT Otherwise normal ECG Confirmed by MAXIMO ARAMBULA, FABIO ([id number]), purchase request editor MARVIN OVERTON ([id number]) on 10/21/2021 1:58:37 PM Referred By: Junior Confirmed By:FABIO MARSH MD
--- NOTE | 2021-10-20 09:54 | EDS_ITS ---
HPI History of Present Illness Chief Complaint: Chest Pain Informant: patient Onset/Context/Timing Onset: Today Activity at onset: sudden Timing: Continuous Quality: Positive for Aching Location: Substernal Worsened By: Nothing Relieved By: Nothing Associated Symptoms: Positive for Nausea, Vomiting, Diaphoresis, Dyspnea and Palpitations; Negative for Cough, Fever, Lightheadedness or Acid Reflux Narrative Narrative: Patient presents with chest pain that began this morning. Patient states she had pain when she woke up. Patient states it is getting progressively worse. Patient states it is over her upper chest. Patient describes it as aching. Patient admits to some nausea and vomiting. Patient admits to some diaphoresis. Patient admits to some shortness of breath and palpitations. Patient denies any fevers or chills. Patient denies any lightheadedness or dizziness. CVD Risk Factors: Negative for Hypertension, Diabetes, Hypercholesterolemia, Family History 1' </=55 or Smoking PE Risk Factors: Positive for Recent Travel/Surgery; Negative for Recent Immobilization, Prior DVT or PE or OCP + Smoking + >/=35 PFSH PFSH Medical History Addisons disease Alcohol use Arthritis Bladder disease Easy bruising Fibromyalgia History of edema History of steroid therapy Hx of gastroesophageal reflux (GERD) Hypothyroidism Leg cramps Migraines Non-smoker Open wound Raynauds disease Home Medications calcium carbonate 500 mg calcium (1,250 mg) chewable tablet 1,000 mg PO BID 09/22/21 [History Last Taken Unknown] cholecalciferol (vitamin D3) 25 mcg (1,000 unit) chewable tablet 25 mcg PO BID 09/22/21 [History Last Taken Unknown] dexamethasone 0.5 mg tablet 0.5 mg PO DAILY 09/22/21 [History Last Taken 10/07/21] diclofenac sodium 1 % topical gel 1 ea topical PRN PRN Pain 09/22/21 [History Last Taken Unknown] estradiol 1 mg tablet 1 mg PO DAILY 09/22/21 [History Last Taken Unknown] famotidine 20 mg tablet 20 mg PO DAILY 09/22/21 [History Last Taken 10/07/21] fludrocortisone 0.1 mg tablet 0.1 mg PO DAILY 09/22/21 [History Last Taken 10/07/21] levothyroxine 125 mcg capsule 125 mcg PO MOTUWETHFRSA 09/22/21 [History Last Taken 10/07/21] loperamide 2 mg capsule 2 mg PO Q4H PRN Diarrhea 09/22/21 [History Last Taken Unknown] loratadine 10 mg tablet 10 mg PO DAILY PRN Allergy Symptoms 09/22/21 [History Last Taken Unknown] milnacipran 50 mg tablet (Savella) 50 mg PO DAILY 09/22/21 [History Last Taken 10/07/21] omeprazole 20 mg tablet,delayed release 20 mg PO DAILY 09/22/21 [History Last Taken 10/07/21] ondansetron HCl 4 mg tablet 4 mg PO PRN PRN Nausea 09/22/21 [History Last Taken Unknown] potassium chloride 20 mEq oral packet (Klor-Con) 30 meq PO DAILY 09/22/21 [History Last Taken Unknown] sumatriptan succinate 100 mg tablet (Imitrex) 100 mg PO PRN PRN Migraine Headache 09/22/21 [History Last Taken Unknown] timolol 0.5 % eye drops 1 drp EACH EYE DAILY 09/22/21 [History Last Taken Unknown] vitamin B complex 1 tab PO DAILY 09/22/21 [History Last Taken Unknown] acetaminophen 300 mg-codeine 30 mg tablet 1 tab PO BID 10/02/21 [History Last Taken Unknown] Allergy/AdvReac Type Severity Reaction Status Date / Time adhesive Allergy Intermediate Rash Verified 10/20/21 09:40 amoxicillin [From Trimox] Allergy Rash Verified 10/20/21 09:40 cyclobenzaprine Allergy Rash Verified 10/20/21 09:40 [From Flexeril] erythromycin base Allergy Vomiting Verified 10/20/21 09:40 [From Luis Fernando-Tab] Iodinated Contrast Media Allergy Rash Verified 10/20/21 09:40 Sulfa (Sulfonamide Allergy Rash Verified 10/20/21 09:40 Antibiotics) bupropion [From Budeprion SR] AdvReac Other Verified 10/20/21 09:40 clonazepam AdvReac Other Verified 10/20/21 09:40 divalproex sodium AdvReac Other Verified 10/20/21 09:40 [From Depakote] duloxetine [From Cymbalta] AdvReac Other Verified 10/20/21 09:40 meperidine [From Demerol] AdvReac Other Verified 10/20/21 09:40 methylprednisolone AdvReac Other Verified 10/20/21 09:40 [From Medrol] Surgical History History of laparoscopic cholecystectomy Hx of appendectomy Hx of bilateral cataract extraction Hx of colonoscopy Hx of tonsillectomy Hx of total knee arthroplasty Hx of vaginal hysterectomy Social History Smoking Status: Never smoker ROS ROS ED Constitutional Constitutional ED: Denies chills or fever(s) Eyes Eyes: Denies blurry vision or change in vision ENT ENT ED: Denies rhinorrhea or sore throat Cardiovascular Cardiovascular: Reports chest pain and palpitations Respiratory/Chest Respiratory/Chest: Reports dyspnea; Denies cough Gastrointestinal Gastrointestinal: Reports nausea and vomiting; Denies abdominal pain Genitourinary Genitourinary ED: Denies dysuria or hematuria Musculoskeletal Musculoskeletal: Denies back pain or neck pain Integumentary Denies abscess or rash Neurologic Neurologic: Denies headache(s) or weakness Allergic/Immunologic Allergic/Immunologic ED: Denies mouth swelling or urticaria EXAM Physical Exam Const Vital Signs: 10/20/21 09:40 10/20/21 09:43 10/20/21 10:02 Temperature 96.9 F L Temperature Source Oral Pulse Rate 98 Respiratory Rate 20 H Respiratory Effort Short of Breath Labored Respiratory Pattern Normal Blood Pressure 153/87 H Blood Pressure Mean 109 Pulse Ox 99 99 Oxygen Delivery Method Room Air Room Air 10/20/21 10:12 10/20/21 10:25 10/20/21 10:25 Temperature Temperature Source Pulse Rate 86 102 H 100 Respiratory Rate 20 H Respiratory Effort Respiratory Pattern Blood Pressure 174/96 H 149/88 H 149/88 H Blood Pressure Mean 108 Pulse Ox 99 Oxygen Delivery Method Room Air 10/20/21 10:36 10/20/21 11:11 10/20/21 12:33 Temperature Temperature Source Pulse Rate 101 H 86 Respiratory Rate 20 H 20 H Respiratory Effort Respiratory Pattern Blood Pressure 136/87 H 113/77 172/87 H Blood Pressure Mean 89 115 Pulse Ox 98 100 Oxygen Delivery Method Room Air Room Air Positive well nourished and well developed General Appearance ED: well developed and NAD HEENT normocephalic and atraumatic Eyes PERRL and EOMs intact bilaterally Neck supple and no JVD Chest Wall palpation of chest normal Resp normal respiratory effort and clear to auscultation bilaterally Effort and Inspection: Negative for respiratory distress Cardio regular rate, regular rhythm and no murmurs GI normal to inspection, nondistended, normoactive bowel sounds, soft to palpation, non-tender and non-distended Extremity normal to inspection General Extremety ED: Yes tenderness; Negative for edema General Extremity: Negative for edema Neuro oriented x3, CN's II-XII intact bilaterally and no sensory deficits noted Sensorium / Orientation: awake and alert Motor Exam: strength 5/5 throughout Psych mental status grossly normal Heart Score History: Moderately Suspicious ECG: Nonspecific Repolarization Age: >/= 65 years Risk Factors: No Risk Factors Troponin: </= Normal Limit Score: 4 MDM MDM MDM Narrative Medical decision making narrative: Patient was given aspirin and sublingual nitroglycerin here. Patient was given IV fluids. EKG was obtained. On my interpretation, it showed a normal sinus r hythm with a rate of 97. MD interval, QRS interval, and QTc intervals were all normal. [place] was normal. There are no acute ST or T wave changes. CBC shows a leukocytosis of 20.9. Hemoglobin was 17.1 and hematocrit is 50.3. D-dimer was normal. Basic metabolic profile shows a sodium of 132 and chloride of 96. CO2 was 19 with an anion gap of 17. BUN was slightly elevated at 22. Glucose was 174. Initial high-sensitivity troponin was normal at 45. Patient had mild improvement of her chest pain with sublingual nitroglycerin. Patient was given morphine. Because of the elevated anion gap, serum acetone was ordered and was negative. Lactate was ordered and was 4.5. Hepatic profile was also obtained and showed mild elevations of the AST, ALT, and alk phos. Portable 1 view chest x-ray was obtained. On my interpretation, lung epperson are clear. There is normal cardiac silhouette. Bony thorax is normal. There is no acute process noted. Radiologist also interpreted the x-ray and agrees. Because of the lactic acidosis, blood cultures were obtained. Cultures of the wound on her left leg were obtained. Urinalysis and urine culture was ordered. Patient was started on cefepime and vancomycin. Case was discussed with the hospitalist. She will admit the patient for observation. Patient and family understood and were agreeable with the plan. All questions were answered. Prior to the patient being admitted, the repeat troponin returned elevated at 4083. Because of this, case was discussed with cardiology, Dr. Hoskins. He recommended obtaining a repeat EKG. This was ordered. Repeat EKG showed a normal sinus rhythm with a rate of 88. There is some J-point elevation in leads V1 and V2. There are no reciprocal changes. There is poor R wave progression across the precordial leads. There is no criteria for STEMI activation. However, with the patient's symptoms he recommended consulting the on-call STEMI physician. Case was discussed with Dr. Davison. He was in to evaluate the patient. He does not feel there is criteria for ST elevation MN. However, he will take the patient to the Legal Transcriptionist today. He will obtain an echocardiogram prior to this. Patient understands and is agreeable with the plan. All questions were answered. Lab Data Attestation: I reviewed the patient's lab results. Labs: Laboratory Results - last 24 hr 10/20/21 10/20/21 10/20/21 09:41 09:41 09:41 WBC 20.9 H RBC 5.39 Hgb 17.1 H Hct 50.3 H MCV 93.3 MCH 31.7 MCHC 34.0 RDW Std Deviation 43.6 RDW Coeff of Amy 12.8 Plt Count 384 MPV 10.2 Immature Gran % (Auto) 1.400 H Neut % (Auto) 60.3 Lymph % (Auto) 29.6 [place] % (Auto) 7.9 Eos % (Auto) 0.4 Baso % (Auto) 0.4 Absolute Neuts (auto) 12.6 H Absolute Lymphs (auto) 6.17 H Nucleated RBC % 0 Platelet Estimate ADEQUATE RBC Morphology NORM C+C D-Dimer Quant (PE/DVT) 0.46 Sodium 132 L Potassium 4.8 Chloride 96 L Carbon Dioxide 19.0 L Anion Gap 17 H BUN 22 H Creatinine 1.02 Estim Creat Clear Calc 39.50 Est GFR (MDRD) Af Amer 70 Est GFR (MDRD) Non-Af 58 L BUN/Creatinine Ratio 21.6 H Glucose 174 H Lactic Acid Calcium 9.8 Total Bilirubin Direct Bilirubin AST ALT Alkaline Phosphatase Troponin I High Sens 45 Total Protein Albumin Globulin Acetone Level 10/20/21 10/20/21 10/20/21 11:00 11:00 11:20 WBC RBC Hgb Hct MCV MCH MCHC RDW Std Deviation RDW Coeff of Amy Plt Count MPV Immature Gran % (Auto) Neut % (Auto) Lymph % (Auto) [place] % (Auto) Eos % (Auto) Baso % (Auto) Absolute Neuts (auto) Absolute Lymphs (auto) Nucleated RBC % Platelet Estimate RBC Morphology D-Dimer Quant (PE/DVT) Sodium Potassium Chloride Carbon Dioxide Anion Gap BUN Creatinine Estim Creat Clear Calc Est GFR (MDRD) Af Amer Est GFR (MDRD) Non-Af BUN/Creatinine Ratio Glucose Lactic Acid 4.5 H* Calcium Total Bilirubin 0.80 Direct Bilirubin 0.15 AST 64 H ALT 137 H Alkaline Phosphatase 130 H Troponin I High Sens Total Protein 8.4 H Albumin 4.0 Globulin 4.4 H Acetone Level NEGATIVE 10/20/21 12:30 WBC RBC Hgb Hct MCV MCH MCHC RDW Std Deviation RDW Coeff of Amy Plt Count MPV Immature Gran % (Auto) Neut % (Auto) Lymph % (Auto) [place] % (Auto) Eos % (Auto) Baso % (Auto) Absolute Neuts (auto) Absolute Lymphs (auto) Nucleated RBC % Platelet Estimate RBC Morphology D-Dimer Quant (PE/DVT) Sodium Potassium Chloride Carbon Dioxide Anion Gap BUN Creatinine Estim Creat Clear Calc Est GFR (MDRD) Af Amer Est GFR (MDRD) Non-Af BUN/Creatinine Ratio Glucose Lactic Acid Calcium Total Bilirubin Direct Bilirubin AST ALT Alkaline Phosphatase Troponin I High Sens 4083 H* Total Protein Albumin Globulin Acetone Level Radiography Chest X-Ray - ED: 1 View, Read by ED Physician, Read by Radiologist and No Acute Disease Diagnostic Testing: Clinical Impression(s) from Imaging Studies Chest X-Ray 10/20/21 10:15 IMPRESSION: Normal x-ray examination of the chest. Electronically Signed: Jewel Lutz MD at 10:47 EDT , EKG Initial EKG: Attestation: I personally reviewed and interpreted this EKG as follows: Interpretation: Sinus Rhythm (97) and No Acute Injury Pattern Prior EKG tracings: not available for review Prior: No Prior Critical Care Time Critical Care Time: Yes Critical care time (excluding procedures): 30-74 minutes (36), Including time spent:, Discussing w/Patient &/or Family/Education General Manager, Discussing w/Consultants, Arranging Admission or Transfer and Performing Direct Patient Care at Bedside Discharge Plan Dx/Rx/DC Orders Clinical Impression: Non-ST elevated myocardial infarction (non-STEMI), Chest pain, Leg wound, left, Acidosis, lactic, Leukocytosis Disposition Disposition: Acute Care Hospital [facility]
[2021-10-20 10:12] LABS: Absolute Lymphocyte Count 6.17 X10^3/uL (0.83-4.51); Absolute Neutrophil Count 12.6 X10^3/uL (2.0-7.7); Basophil# 0.09 X10^3/uL; Basophil% 0.4 % (0-1); Eosinophil# 0.09 X10^3/uL; Eosinophils% 0.4 % (0-5); Hematocrit 50.3 % (37-47); Hemoglobin 17.1 g/dL (12.0-15.0); Lymphocyte # 6.17 X10^3/ul (0.83-4.51); Lymphocyte % 29.6 % (19-41); Mean Corpuscular Hgb 31.7 pg (27.0-32.0); Mean Corpuscular Volume 93.3 fL (81-99); Mean Platelet Vol. 10.2 fl (6.2-12.0); Monocyte# 1.65 X10^3/uL; Monocyte% 7.9 % (0-10); NRBC Flagged by Analyzer 0 % (0-5); Neutrophil # 12.55 X10^3/uL (2.7-7.7); Neutrophil % 60.3 % (47-70); POSITIVE DIFFERENTIAL YES; POSITIVE MORPHOLOGY YES; Platelet Count 384 K/mm3 (150-450); RBC Distribution Width CV 12.8 % (11.6-14.6); RBC Distribution Width SD 43.6 fl (35.1-43.9); Red Blood Count 5.39 M/mm3 (4.2-5.4); White Blood Count 20.9 K/mm3 (4.4-11.0)
[2021-10-20] MEDS: Nitroglycerin SL (ED/IMG/CATH) 0.4 MG TABLET SL ×3 (10:12→10:36)
[2021-10-20] MEDS: 0.9% Normal Saline 1,000 ML 150 ML IV (10:12)
--- NOTE | 2021-10-20 10:15 | RAD_ITS ---
STUDY: X-RAY CHEST REASON FOR EXAM: Female, 66 years old. Chest pain TECHNIQUE: Single AP portable view of the chest. COMPARISON: None. FINDINGS: EKG electrodes are seen. The lungs are clear and expanded. There is no demonstrated pleural abnormality. Normal size heart. Normal mediastinum and catrachito. Normal visualized pulmonary arteries. Normal visualized aortic arch and descending thoracic aorta. There are diffuse degenerative changes of the visualized thoracic spine. Normal visualized ribs, clavicles, and shoulders. Prior cholecystectomy. RAD/Chest 1 View (Portable) IMPRESSION: Normal x-ray examination of the chest. Electronically Signed: Jewel Lutz MD at 10:47 EDT ,
[2021-10-20 10:17] LABS: Differential Indicated SCAN CRITERIA MET
[2021-10-20 10:35] LABS: Anion Gap 17 (5-15); BUN 22 mg/dL (7-18); BUN/Creat Ratio 21.6 RATIO (10-20); Calcium,Total 9.8 mg/dL (8.5-10.1); Chloride 96 mmol/L (98-107); Creatinine, Serum 1.02 mg/dL (0.55-1.02); EST Glomerular Filtration Rate 58 mL/min (>60); Est Glom Filt Rate - Afr Amer 70 mL/min (>60); Glucose 174 mg/dL (74-106); Potassium 4.8 mmol/L (3.5-5.1); Sodium Level 132 mmol/L (136-145); Troponin-I HS (w/2H Reflex) 45 pg/mL (3.0-54.0)
[2021-10-20 10:43] LABS: D-Dimer Quantitative (DVT/PE) 0.46 FEU/ug/m (0.27-0.49)
[2021-10-20] MEDS: Morphine 2 MG/ML Syringe IV ×2 (11:12→13:08)
[2021-10-20 11:14] LABS: Platelet Estimate ADEQUATE (ADEQ); Red Cell Morphology NORM C+C NORMAL (NORM C&C)
[2021-10-20 11:36] LABS: AST(SGOT) 64 U/L (15-37); Alanine Aminotransfer ALT/SGPT 137 U/L (13-56); Alkaline Phosphatase 130 U/L (45-117); Bilirubin, Direct 0.15 mg/dL (0.00-0.30); Globulin 4.4 g/dL (2.2-4.2); Protein, Total 8.4 g/dL (6.4-8.2)
[2021-10-20 12:04] LABS: Lactic Acid 4.5 mmol/L (0.4-1.9)
[2021-10-20 12:06] LABS: Reflex Troponin-HS? (from REC) Y
--- NOTE | 2021-10-20 12:43 | HP.PCM.HOS_ITS ---
HPI - General General Date of Admission: 10/20/21 Date of Service: 10/20/21 Chief Complaint: Chest pain - 1 day HPI Narrative FIDELINA MICHELEUND, is a 66 F who presents with chest pain. Patient presented with acute onset of chest pain that started when he woke. Chest pain was substernal, described as aching, associated nausea and vomiting and diaphoresis. She also felt short of breath and radiated to her arm. This lasted for some t serjio and she decided to call the EMS. She is a non-smoker. In the emergency room, blood pressure is 153/87, heart rate 98, respiratory 20, temperature 96.9 F, oxygen saturation on room air. WBC count is 20.9, hemoglobin is 17.1, platelet count 384, INR is 1.1, sodium 132, potassium 4.8, chloride 96, bicarbonate 19, BUN is 22, creatinine 1.02, lactic acid 4.5, LFTs elevated, troponins 4083. MRSA is negative. Chest x-ray is unremarkable [facility] Medical History Addisons disease Alcohol use Arthritis Bladder disease Easy bruising Fibromyalgia History of edema History of steroid therapy Hx of gastroesophageal reflux (GERD) Hypothyroidism Leg cramps Migraines Non-smoker Open wound Raynauds disease Home Medications calcium carbonate 500 mg calcium (1,250 mg) chewable tablet 1,000 mg PO BID 09/22/21 [History Last Taken Unknown] cholecalciferol (vitamin D3) 25 mcg (1,000 unit) chewable tablet 25 mcg PO BID 09/22/21 [History Last Taken Unknown] dexamethasone 0.5 mg tablet 0.5 mg PO DAILY 09/22/21 [History Last Taken 10/07/21] diclofenac sodium 1 % topical gel 1 ea topical PRN PRN Pain 09/22/21 [History Last Taken Unknown] estradiol 1 mg tablet 1 mg PO DAILY 09/22/21 [History Last Taken Unknown] famotidine 20 mg tablet 20 mg PO DAILY 09/22/21 [History Last Taken 10/07/21] fludrocortisone 0.1 mg tablet 0.1 mg PO DAILY 09/22/21 [History Last Taken 10/07/21] levothyroxine 125 mcg capsule 125 mcg PO MOTUWETHFRSA 09/22/21 [History Last Taken 10/07/21] loperamide 2 mg capsule 2 mg PO Q4H PRN Diarrhea 09/22/21 [History Last Taken Unknown] loratadine 10 mg tablet 10 mg PO DAILY PRN Allergy Symptoms 09/22/21 [History Last Taken Unknown] milnacipran 50 mg tablet (Savella) 50 mg PO DAILY 09/22/21 [History Last Taken 10/07/21] omeprazole 20 mg tablet,delayed release 20 mg PO DAILY 09/22/21 [History Last Taken 10/07/21] ondansetron HCl 4 mg tablet 4 mg PO PRN PRN Nausea 09/22/21 [History Last Taken Unknown] potassium chloride 20 mEq oral packet (Klor-Con) 30 meq PO DAILY 09/22/21 [History Last Taken Unknown] sumatriptan succinate 100 mg tablet (Imitrex) 100 mg PO PRN PRN Migraine Headache 09/22/21 [History Last Taken Unknown] timolol 0.5 % eye drops 1 drp EACH EYE DAILY 09/22/21 [History Last Taken Unknown] vitamin B complex 1 tab PO DAILY 09/22/21 [History Last Taken Unknown] acetaminophen 300 mg-codeine 30 mg tablet 1 tab PO BID 10/02/21 [History Last Taken Unknown] Allergy/AdvReac Type Severity Reaction Status Date / Time adhesive Allergy Intermediate Rash Verified 10/20/21 09:40 amoxicillin [From Trimox] Allergy Rash Verified 10/20/21 09:40 cyclobenzaprine Allergy Rash Verified 10/20/21 09:40 [From Flexeril] erythromycin base Allergy Vomiting Verified 10/20/21 09:40 [From Luis Fernando-Tab] Iodinated Contrast Media Allergy Rash Verified 10/20/21 09:40 Sulfa (Sulfonamide Allergy Rash Verified 10/20/21 09:40 Antibiotics) bupropion [From Budeprion SR] AdvReac Other Verified 10/20/21 09:40 clonazepam AdvReac Other Verified 10/20/21 09:40 divalproex sodium AdvReac Other Verified 10/20/21 09:40 [From Depakote] duloxetine [From Cymbalta] AdvReac Other Verified 10/20/21 09:40 meperidine [From Demerol] AdvReac Other Verified 10/20/21 09:40 methylprednisolone AdvReac Other Verified 10/20/21 09:40 [From Medrol] Family History (Updated 10/20/21 @ 17:[address] Brisa Rawls MD) Mother Heart disease Father Heart disease Surgical History History of laparoscopic cholecystectomy Hx of appendectomy Hx of bilateral cataract extraction Hx of colonoscopy Hx of tonsillectomy Hx of total knee arthroplasty Hx of vaginal hysterectomy Social History (Updated 10/20/21 @ 17:[address] Brisa Rawls MD) household members: spouse Smoking Status: Never smoker alcohol intake: current substance use type: does not use ROS ROS Narrative Constitutional: Reports: Malaise, Weakness, Fatigue. Denies: Anorexia, Chills, Fever, Night Sweats, Weight Change Eyes: Denies: Blurred vision, Cataracts, Conjunctivae Inflammation, Pain, Redness, Vision Change HEENT: Denies: Difficulty Hearing, Difficulty Swallowing, Head Aches, Hearing Changes, Sinus Congestion, Sinus Drainage Cardiovascular: See HPI Respiratory: Denies: Cough, Shortness of breath at rest, Sputum production Gastrointestinal: Denies: Abdominal Pain, Nausea, Vomiting Genitourinary: Denies: Dysuria Musculoskeletal: Denies: Joint Pain, Joint stiffness, Joint swelling, Joint Tenderness Skin: Denies: Rash, Wounds Neurological: Denies: Numbness, Tingling, Focal weakness Vital Signs Vital Signs Vital Signs: 10/20/21 09:40 10/20/21 09:43 10/20/21 10:02 Temperature 96.9 F L Temperature Source Oral Pulse Rate 98 Respiratory Rate 20 H Respiratory Effort Short of Breath Labored Respiratory Pattern Normal Blood Pressure 153/87 H Blood Pressure Mean 109 Pulse Ox 99 99 Oxygen Delivery Method Room Air Room Air 10/20/21 10:12 10/20/21 10:25 10/20/21 10:25 Temperature Temperature Source Pulse Rate 86 102 H 100 Respiratory Rate 20 H Respiratory Effort Respiratory Pattern Blood Pressure 174/96 H 149/88 H 149/88 H Blood Pressure Mean 108 Pulse Ox 99 Oxygen Delivery Method Room Air 10/20/21 10:36 10/20/21 11:11 10/20/21 12:33 Temperature Temperature Source Pulse Rate 101 H 86 Respiratory Rate 20 H 20 H Respiratory Effort Respiratory Pattern Blood Pressure 136/87 H 113/77 172/87 H Blood Pressure Mean 89 115 Pulse Ox 98 100 Oxygen Delivery Method Room Air Room Air Weight Weight: 65.9 kg Body Mass Index (BMI) 28.3 Physical Exam Narrative Physical exam: General: Alert, Oriented x3, Cooperative, No apparent distress HEENT: Atraumatic Oral: Moist Mucosa Neck: Supple Lungs: Clear to auscultation Cardiovascular: HS I+II, regular, no murmurs Abdomen: Bowel Sounds Present, Soft, Non Tender Extremities: No edema Skin: No rashes, No breakdown Neurological: Grossly intact Psych/Mental Status: Appropriate Results Lab / Micro Data Result Diagrams: 10/20/21 09:41 10/20/21 09:41 Labs: Laboratory Results - last 24 hr 10/20/21 09:41: WBC 20.9 H, RBC 5.39, Hgb 17.1 H, Hct 50.3 H, MCV 93.3, MCH 31.7, MCHC 34.0, RDW Std Deviation 43.6, RDW Coeff of Amy 12.8, Plt Count 384, MPV 10.2, Immature Gran % (Auto) 1.400 H, Neut % (Auto) 60.3, Lymph % (Auto) 29.6, [place] % (Auto) 7.9, Eos % (Auto) 0.4, Baso % (Auto) 0.4, Absolute Neuts ( auto) 12.6 H, Absolute Lymphs (auto) 6.17 H, Nucleated RBC % 0, Platelet Estimate ADEQUATE, RBC Morphology NORM C+C 10/20/21 09:41: Sodium 132 L, Potassium 4.8, Chloride 96 L, Carbon Dioxide 19.0 L, Anion Gap 17 H, BUN 22 H, Creatinine 1.02, Estim Creat Clear Calc 39.50, Est GFR (MDRD) Af Amer 70, Est GFR (MDRD) Non-Af 58 L, BUN/Creatinine Ratio 21.6 H, Glucose 174 H, Calcium 9.8, Troponin I High Sens 45 10/20/21 09:41: D-Dimer Quant (PE/DVT) 0.46 10/20/21 11:00: Total Bilirubin 0.80, Direct Bilirubin 0.15, AST 64 H, ALT 137 H , Alkaline Phosphatase 130 H, Total Protein 8.4 H, Albumin 4.0, Globulin 4.4 H 10/20/21 11:00: Acetone Level NEGATIVE 10/20/21 11:20: Lactic Acid 4.5 H* Radiology Impression Chest X-Ray 10/20/21 10:15 IMPRESSION: Normal x-ray examination of the chest. Electronically Signed: Jewel Lutz MD at 10:47 EDT , Assessment & Plan Assessment/Plan (1) NSTEMI, initial episode of care: PLAN: Plan 1. Acute chest pain/non-STEMI, patient presented with elevated troponins initially of 45 and then at 4083. EKG shows some J-point elevation especially in V1 and V2 with poor R wave progression Patient taken to the cardiac cath, found to have chronic total occlusion of the LAD Discussed with cardiology, patient will be medically managed on heparin drip, aspirin, Plavix, statin Admit to ICU, lipid profile, HbA1c 2. 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 Hypothyroidism, continue Synthroid 4. Acute on chronic leg wound, status post recent wound debridement, patient is due for wound VAC Will consult wound RN 5. H/o migraines/fibromyalgia/Raynaud's disease/GERD 6. DVT PPx- Heparin drip Charges/Coding Visit Charges Inpatient E&M: 70320 Init Hosp L3
[2021-10-20 12:59] LABS: Troponin-I HS 4083 pg/mL (3.0-54.0)
[2021-10-20] MEDS: 0.9% Normal Saline 1,000 ML 1000 ML IV (13:07)
--- NOTE | 2021-10-20 13:11 | EKG12_ITS ---
Test Reason : REPEAT Blood Pressure : / mmHG Vent. Rate : 088 BPM Atrial Rate : 088 BPM P-R Int : 106 ms QRS Dur : 082 ms QT Int : 348 ms P-R-T Axes : 039 000 064 degrees QTc Int : 421 ms Sinus rhythm with short IN Possible Inferior infarct , age undetermined Cannot rule out Anterior infarct , age undetermined Abnormal ECG Confirmed by MAXIMO ARAMBULA, FABIO ([id number]), fan mail editor MARVIN OVERTON ([id number]) on 10/21/2021 1:58:53 PM Referred By: Confirmed By:FABIO MARSH MD
--- NOTE | 2021-10-20 13:21 | ED.RN ---
PER DR. PERDOMO, OK TO START ANTIBIOTICS PRIOR TO URINE CULTURE AND SAMPLE. PT ATTEMPTED TO PEE BUT WAS UNABLE TO GO. ANTIBIOTICS INITIATED.
[2021-10-20 13:38] LABS: International Normalized Ratio 1.1; Prothrombin Time (Protime)PT. 13.8 SECONDS (11.7-14.9)
[2021-10-20 13:39] LABS: Partial Thromboplast Time 23.9 Seconds (24.1-36.2)
[2021-10-20] MEDS: TICAGRELOR 90 MG TABLET 180 MG PO (13:59)
[2021-10-20] MEDS: Heparin Injection (Vial) 5,000 UNIT/ML VIAL 5000 UNIT IV (14:00)
--- NOTE | 2021-10-20 14:29 | ED.RN ---
REPORT GIVEN TO SALOONKEEPER AT BEDSIDE.
[2021-10-20 15:14] LABS: M R Staph aureus DNA By PCR Negative (Negative); Probe Check PASS; Specimen Processing Control PASS; Staph aureus DNA By PCR NEGATIVE (Negative)
[2021-10-20 15:24] LABS: Reflex Lactate? Y
--- NOTE | 2021-10-20 16:15 | EKG12_ITS ---
Test Reason : AM EKG Blood Pressure : / mmHG Vent. Rate : 100 BPM Atrial Rate : 100 BPM P-R Int : 120 ms QRS Dur : 084 ms QT Int : 412 ms P-R-T Axes : 058 001 145 degrees QTc Int : 531 ms Normal sinus rhythm Anterior infarct , age undetermined T wave abnormality, consider lateral ischemia Prolonged QT Abnormal ECG Confirmed by MAXIMO ARAMBULA, FABIO ([id number]), editor school photograph MARVIN OVERTON ([id number]) on 10/21/2021 2:06:07 PM Referred By: Confirmed By:FABIO MARSH MD
--- NOTE | 2021-10-20 16:20 | PCI.CARDCATH ---
PCI Cardiac Cath Report PCI Report: 1. Moderate sedation 2. Selective left coronary angiography 3. Selective right coronary angiography 4. Measurement of LVEDP and a pullback pressure 5. Use of JL 4 guide catheter and whisper wire to evaluate LAD lesion. 6. Selective right common femoral artery geography And placement of Perclose for closure of the arteriotomy site. Consent; Risk and benefit of procedure explained in detail patient like to proceed and informed consent obtained Preprocedure diagnosis; 66-year-old patient who has been under a lot of stress she moved from [place] To this area where she been staying with her brother and his . Patient mentions that she did not have any residency. She presented to the ER as she had severe symptoms of chest pain diaphoretic some radiation to the left upper chest and the left arm feeling nauseated Seen by the ER physician where the EKG repeated showed evidence of Q waves in the anterior lead consistent with recent anterior MA in the LAD distribution And subsequent high sensitive troponin is more than 4000 significantly elevated And echocardiogram showed what appeared like Takotsubo syndrome with global apical and distal septal and lateral hypokinesia on distal portion of the base of the heart was kristy The EF in the range of around 30-35%. Her symptoms of chest pain improved in the ER she was given medical therapy in the form of aspirin Brilinta and she was given heparin and based on her symptoms and the change in the EKG and the cardiac markers she was taken to the [facility] for further evaluation Patient has multiple other medical problems with history of easy bruising and Raynaud's disease she is non-smoker and also she had a wound on her right calvaria She had anion gap of around 19 and a lactic acid level elevated to 4.5. Other medical problem include history of steroid therapy history of easy bruising alcohol use arthritis hypothyroidism and migraine. diagnostic catheter used; 1. 5 Bangladeshi JL 3.5 2. 5 Bangladeshi JR4 3. 5 Bangladeshi pigtail catheter 4. 6 Bangladeshi JL 4 guide catheter Interventional equipment we used; 1. Whisper wire 0.014 whisper MS straight 190 cm 2. 0.014 BMW universal straight 190 cm 3. 0.014 run-through extra floppy 180 cm straight wire. Procedure in detail; Under fluoroscopic guidance we obtained access from the right common femoral artery and will place a 5 Bangladeshi sheath which was later on exchanged for a 6 Bangladeshi sheath Then we will proceed with a 5 Bangladeshi JL 3.5 advanced to the ascending aorta, cannulated the left main without difficulty Multiple views of the left coronary system obtained following this the catheter exchanged for 5 Bangladeshi JR4 and cannulated the RCA and 3 views of the RCA were obtained. Including long stay on the cine to visualize within the distal LAD will show up from the right side. Following this a pigtail catheter was used across aortic valve without difficulty placing the mid ventricle measurement of LVEDP performed and a pullback pressure also was recorded following this all angiographic views were studied in the [facility]. And a decision was made to proceed for possible evaluation of the LAD even though angiographically severe as a chronic QUARTER SEAMER of the LAD with collaterals from the left to left. Hemodynamics; 1. LVEDP elevated to 25 mmHg 2. There is no systolic gradient across aortic valve. Coronary angiography; 1. Left main is normal angiographically bifurcating into LAD and the left circumflex. 2. The left anterior descending artery appears, occluded at the midportion with left to left collaterals there is no clear demonstration of the site of occlusion of the LAD. 3 the left circumflex artery angiographically appear normal, large OM1 branch 4. RCA is large dominant and normal angiographically with no collaterals noted from the right to the left Interventional plan; We proceed with a 6 Bangladeshi JL 4 advanced sending aorta cannulated the left main and then we used a whisper wire across into the LAD and were able to cross into a smaller branch which appear at the second septal branch very small collaterals where shown from the left to left there is no collateral from the right side to the LAD. And the origin of the artery at the site of the diagonal appears very small however concerned about perforation with the balloon for we attempted not to perform any balloon dilatation at this point. Medication in the [facility]; Patient was given Brilinta Aspirin Heparin. ACT level was measured Conclusion recommendation 1. This patient has been under a lot of stress moving from [place] to this area here not having the house and also she lost her recently and she came to stay with her brother she had significant symptoms yesterday and today her symptoms get worse with all clinical features consistent with large myocardial infarction which clinically appear likely hyperdynamic syndrome/Takotsubo syndrome on already had established coronary artery disease at there were different definite collaterals from the left to the left possible QUARTER SEAMER of the LAD. And also she had a echocardiographic features which is highly suggestive of Takotsubo syndrome. Myself and my colleague Dr. Hoskins we reviewed the echocardiogram as well as the cardiac catheterization angiographic findings and the decision was made at this point to treat this patient with medical therapy 1. Patient will be admitted to CCU we will continue on the dual antiplatelet therapy she had a lot of bruises and lot of allergies as well and at this point we will continue on low-dose aspirin with Plavix High-dose statin atorvastatin 80 mg We will continue to monitor her electrolytes and also will repeat an echocardiogram a full echocardiogram tomorrow Patient will be admitted to the intensive care unit she remained stable clinically postprocedure selective right common femoral artery angiography obtained and Perclose used to close arteriotomy site with no complication in the [facility] no immediate complication in the [facility]. Patient symptoms of chest pain improved oxygen saturation was on 2 L nasal cannula was 100%. And she does not have any significant change in the traffic rate clerk during the procedure. We will continue to monitor her troponins, renal function. Also patient had a wound on the right lower extremity, And she will be seen by the network support specialist. Patient to follow-up with the ultrasound applications specialist, [facility], for continuation of cardiac care and for medical therapy. Meng Davison MD,FACC,[facility]
[2021-10-20] MEDS: 0.9% Normal Saline 1,000 ML 50 ML IV (18:08)
[2021-10-20] MEDS: Fludrocortisone Acetate 0.1 MG Tablet PO (18:23)
[2021-10-20] MEDS: Levothyroxine 125 MCG Tablet PO (18:23)
[2021-10-20 18:52] LABS: Hemoglobin A1c 6.1 % (3.8-5.6)
[2021-10-20] MEDS: HEPARIN/D5w 25,000 UNITS 25,000 UNITS/250 ML IV.SOLN. 10 UNITS CONT INF (19:05)
--- NOTE | 2021-10-20 21:31 | NURSING ---
10/20/20212129 RN attempted to administer HS Lipitor, Pt refused stating She would like to talk with the Dr. before taking RN gave pt education and reason for being started on this medication. Pt decision did not change. RN will pass on information to on coming RN and team in AM Note completed by: Stacy Messina RN.
[2021-10-21] VITALS (17 sets, daily range): BP systolic 113–160; BP diastolic 56–86; PULSE 93–109; RESP 15–23; TEMP 36.3–36.7; O2SAT 94–99
[2021-10-21 00:23] LABS: Lactic Acid 6.9 mmol/L (0.4-1.9)
[2021-10-21 02:13] LABS: Partial Thromboplast Time 84.2 Seconds (24.1-36.2)
--- NOTE | 2021-10-21 02:26 | NURSING ---
Addendum entered by Stacy Messina 10/21/21 02:44: RN able to correctly titrate heparin gtt at this time. Note completed by: Stacy Messina RN. Original Note: 10/21/21 @ 0225 Pt PTT 84.1. RN not able to titrate in MAR at this time. RN contacted pharmacy and pharmacist was unable to assist RN at this time. RN decreased heparin gtt to 900 per heparin gtt protocol. Recheck in for 829. Note completed by: Stacy Messina RN.
[2021-10-21] MEDS: Acetaminophen 325 MG Tablet 650 MG PO (02:33)
[2021-10-21 05:23] LABS: Absolute Neutrophil Count 21.4 X10^3/uL (2.0-7.7); Basophil# 0.03 X10^3/uL; Basophil% 0.1 % (0-1); Hematocrit 43.9 % (37-47); Hemoglobin 14.9 g/dL (12.0-15.0); Lymphocyte % 5.1 % (19-41); Mean Corp Hgb Conc 33.9 g/dL (32-36); Mean Corpuscular Hgb 31.6 pg (27.0-32.0); Mean Corpuscular Volume 93.2 fL (81-99); Mean Platelet Vol. 10.2 fl (6.2-12.0); Monocyte# 0.53 X10^3/uL; Monocyte% 2.3 % (0-10); NRBC Flagged by Analyzer 0 % (0-5); Neutrophil # 21.41 X10^3/uL (2.7-7.7); Neutrophil % 91.5 % (47-70); POSITIVE DIFFERENTIAL YES; Platelet Count 325 K/mm3 (150-450); RBC Distribution Width CV 12.9 % (11.6-14.6); RBC Distribution Width SD 44.1 fl (35.1-43.9); Red Blood Count 4.71 M/mm3 (4.2-5.4); White Blood Count 23.4 K/mm3 (4.4-11.0)
[2021-10-21 05:24] LABS: Differential Indicated SCAN CRITERIA MET
--- NOTE | 2021-10-21 05:44 | NURSING ---
Per pt she has a wound on her left leg from a fall that is being monitored by the wound center. Per pt it is a packed wound that she is getting a wound vac for. Pt would not allow RN to assess the wound during the shift because of needing it to be done directly as ordered. Consult to wound RN is in place.
[2021-10-21 05:48] LABS: Lactic Acid 3.7 mmol/L (0.4-1.9)
[2021-10-21 05:49] LABS: ALB/GLOB Ratio 0.7 RATIO (0.9-2.4); AST(SGOT) 244 U/L (15-37); Alanine Aminotransfer ALT/SGPT 141 U/L (13-56); Albumin, Serum 3.1 g/dL (3.2-5.0); Alkaline Phosphatase 113 U/L (45-117); Anion Gap 13 (5-15); BUN 15 mg/dL (7-18); BUN/Creat Ratio 17.5 RATIO (10-20); Calcium,Total 8.4 mg/dL (8.5-10.1); Chloride 99 mmol/L (98-107); Cholesterol 223 mg/dL (200); Creatinine, Serum 0.86 mg/dL (0.55-1.02); EST Glomerular Filtration Rate 71 mL/min (>60); Est Glom Filt Rate - Afr Amer 85 mL/min (>60); Estimated Creatinine Clearance 65.89 ml/min; Globulin 4.3 g/dL (2.2-4.2); Glucose 228 mg/dL (74-106); High Density Lipoprotein 88 mg/dL; Protein, Total 7.4 g/dL (6.4-8.2); Sodium Level 129 mmol/L (136-145); Triglycerides 138 mg/dL; Very Low Density Lipoprotein 28 mg/dL (5-40)
[2021-10-21] MEDS: Levothyroxine 125 MCG Tablet PO (05:50)
[2021-10-21 06:03] LABS: Differential Comment SCANNED
--- NOTE | 2021-10-21 07:53 | PN.HOSP_ITS ---
Subjective Subjective Follow-up on Acute NSTEMI: Patient seen and examined. She had an episode of chest pain overnight, that improved with Tylenol. She stated that she is reluctant to any new medication especially statins because of a history of fibromyalgia. I explained the reasoning for the medications. Objective Data Objective Data Vital Signs: Vital Signs Temp Pulse Resp BP Pulse Ox O2 Del Method O2 Flow Rate 97.3 F L 103 H 21 H 147/79 H 99 Room Air 2 10/21/21 00:00 10/21/21 07:00 10/21/21 07:00 10/21/21 07:00 10/21/21 07:00 10/21/21 07:00 10/20/21 17:45 Oxygen Flow Rate (L/min) 2 Oxygen Delivery Method Room Air Weight: 64 kg Body Mass Index (BMI) 28.5 Intake & Output: Intake and Output for Last 24 Hours 10/19/21 10/20/21 10/21/21 23:59 23:59 23:59 Intake Total 2100 / 2100 74.17 / 74.17 Output Total 300 / 300 650 / 650 Balance 1800 / 1800 -575.83 / -575.83 Lab / Micro Data Result Diagrams: 10/21/21 05:09 10/21/21 08:30 Labs: Laboratory Results - last 24 hr 10/20/21 09:41: WBC 20.9 H, RBC 5.39, Hgb 17.1 H, Hct 50.3 H, MCV 93.3, MCH 31.7, MCHC 34.0, RDW Std Deviation 43.6, RDW Coeff of Amy 12.8, Plt Count 384, MPV 10.2, Immature Gran % (Auto) 1.400 H, Neut % (Auto) 60.3, Lymph % (Auto) 29.6, [place] % (Auto) 7.9, Eos % (Auto) 0.4, Baso % (Auto) 0.4, Absolute Neuts (au to) 12.6 H, Absolute Lymphs (auto) 6.17 H, Nucleated RBC % 0, Diff Path Review June, Platelet Estimate ADEQUATE, RBC Morphology NORM C+C 10/20/21 09:41: Sodium 132 L, Potassium 4.8, Chloride 96 L, Carbon Dioxide 19.0 L, Anion Gap 17 H, BUN 22 H, Creatinine 1.02, Estim Creat Clear Calc 39.50, Est GFR (MDRD) Af Amer 70, Est GFR (MDRD) Non-Af 58 L, BUN/Creatinine Ratio 21.6 H, Glucose 174 H, Calcium 9.8, Troponin I High Sens 45 10/20/21 09:41: D-Dimer Quant (PE/DVT) 0.46 10/20/21 09:41: Hemoglobin A1c 6.1 H 10/20/21 11:00: Total Bilirubin 0.80, Direct Bilirubin 0.15, AST 64 H, ALT 137 H , Alkaline Phosphatase 130 H, Total Protein 8.4 H, Albumin 4.0, Globulin 4.4 H 10/20/21 11:00: Acetone Level NEGATIVE 10/20/21 11:20: Lactic Acid 4.5 H* 10/20/21 12:05: S.aureus Protein A PCR NEGATIVE, MRSA (PCR) Negative 10/20/21 12:30: Troponin I High Sens 4083 H* 10/20/21 13:25: PT 13.8, INR 1.1, APTT 23.9 L 10/20/21 23:45: Lactic Acid 6.9 H* 10/21/21 01:45: APTT 84.2 H 10/21/21 05:09: WBC 23.4 H, RBC 4.71, Hgb 14.9, Hct 43.9, MCV 93.2, MCH 31.6, MCHC 33.9, RDW Std Deviation 44.1 H, RDW Coeff of Amy 12.9, Plt Count 325, MPV 10.2, Immature Gran % (Auto) 1.000 H, Neut % (Auto) 91.5 H, Lymph % (Auto) 5.1 L , [place] % (Auto) 2.3, Eos % (Auto) 0.0, Baso % (Auto) 0.1, Absolute Neuts (auto) 21.4 H, Absolute Lymphs (auto) 1.20, Nucleated RBC % 0, Differential Comment SCANNED 10/21/21 05:09: Sodium 129 L, Potassium 6.0 H*, Chloride 99, Carbon Dioxide 17.0 L, Anion Gap 13, BUN 15, Creatinine 0.86, Estim Creat Clear Calc 65.89, Est GFR (MDRD) Af Amer 85, Est GFR (MDRD) Non-Af 71, BUN/Creatinine Ratio 17.5, Glucose 228 H, Calcium 8.4 L, Total Bilirubin 0.50, AST 244 H, ALT 141 H, Alkaline Phosphatase 113, Total Protein 7.4, Albumin 3.1 L, Globulin 4.3 H, Albumin/Globulin Ratio 0.7 L, Triglycerides 138, Cholesterol 223 H, LDL Cholesterol 107, VLDL Cholesterol 28, HDL Cholesterol 88 10/21/21 05:09: Lactic Acid 3.7 H* Micro: Microbiology 10/20/21 12:42 Nasal Secretion SARS-CoV-2 & FLU Antigen (Rapid) - Final Radiography Diagnostic Testing: Radiology Impression Chest X-Ray 10/20/21 10:15 IMPRESSION: Normal x-ray examination of the chest. Electronically Signed: Jewel Lutz MD at 10:47 EDT , Physical Exam Narrative Physical exam: General: Alert, Oriented x3, Cooperative, looks improved HEENT: Atraumatic Oral: Moist Mucosa Neck: Supple Lungs: Clear to auscultation Cardiovascular: HS I+II, regular, no murmurs Abdomen: Bowel Sounds Present, Soft, Non Tender Extremities: No edema Skin: No rashes, No breakdown Neurological: Grossly intact Psych/Mental Status: Appropriate Assessment & Plan Assessment/Plan (1) NSTEMI, initial episode of care: PLAN: Plan 1. Acute chest pain/non-STEMI, status postcardiac cath -findings of chronic total occlusion Continue on aspirin, Plavix, Coreg, Zetia 2D echo. Follow-up on cardiology recommendation 2. Hyperlipidemia, patient reluctant to try statins, Start on Zetia 3. 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 Hypothyroidism, continue Synthroid 5. Acute on chronic leg wound, status post recent wound debridement, patient is due for wound VAC Wound RN consulted?refer to wound notes/pictures Wound looks clean; no indication for antibiotics 6. H/o migraines/fibromyalgia/Raynaud's disease/GERD 7. DVT PPx- Heparin SC Charges/Coding Visit Charges Inpatient E&M: 52353 Subs Hosp L2
[2021-10-21 08:58] LABS: Anion Gap 14 (5-15); BUN 14 mg/dL (7-18); BUN/Creat Ratio 13.3 RATIO (10-20); Calcium,Total 9.1 mg/dL (8.5-10.1); Chloride 99 mmol/L (98-107); Creatinine, Serum 1.05 mg/dL (0.55-1.02); EST Glomerular Filtration Rate 56 mL/min (>60); Est Glom Filt Rate - Afr Amer 68 mL/min (>60); Estimated Creatinine Clearance 53.97 ml/min; Glucose 241 mg/dL (74-106); Potassium 3.9 mmol/L (3.5-5.1); Sodium Level 132 mmol/L (136-145)
[2021-10-21 09:10] LABS: Partial Thromboplast Time 84.8 Seconds (24.1-36.2)
[2021-10-21 09:17] LABS: Reflex Lactate? Y
[2021-10-21 09:17] LABS: Mucous, Urine 0 SEEN /hpf (<or=2+); White Blood Cells 0 SEEN /hpf (0-5)
[2021-10-21 09:21] LABS: Color, Urine Yellow (Yellow); Glucose, Dipstick 100 mg/dl (Normal); Ketone-Dipstick Negative (Negative); Leukocyte Esterase-Dipstick Negative /ul (Negative); Nitrite-Dipstick Negative (Negative); Occult Blood-Urine 10 /ul (Negative); Protein-Dipstick 15 mg/dl (Negative); Urine Bilirubin Dipstick Negative (Negative); Urine Clarity Sl. Cloudy (Clear); Urine Urobilinogen Normal (Normal); Urine pH 6.5 (5.0 - 8.0)
[2021-10-21 09:26] LABS: Bacteria 1+ /hpf (None Seen); Red Blood Cells-Urine 0-5 SEEN /hpf (0-5); Squamous Epithelial Cells - UA 0-5 SEEN /hpf (5-10)
--- NOTE | 2021-10-21 09:42 | ECHOD_ITS ---
Reason For Study: CHEST PAIN Procedure This was a 2D Doppler, Color Flow transthoracic echocardiogram. Exam performed portable in patient room. Left Ventricle Mildly dilated left ventricle. The estimated ejection fraction is 25 30 %. Right Ventricle Normal right ventricle. Atria Normal left atrium. Normal right atrium. Mitral Valve The mitral valve is structurally normal. No prolapse or stenosis seen. Tricuspid Valve Normal tricuspid valve. Aortic Valve Normal aortic valve. Pulmonic Valve The pulmonic valve is not well visualized. Great Vessels Normal aortic root. Pericardium/Pleural No pericardial effusion. MMode/2D Measurements & Calculations LVIDd: 4.4 cm IVSd: 1.0 cm Ao root diam: 2.5 cm LVIDs: 3.4 cm LVPWd: 1.2 cm FS: 22.5 % LAV(MOD-sp4): 23.3 ml LVAd ap4: 19.6 cm2 SV(MOD-sp4): 13.7 ml LVLd ap4: 6.5 cm EDV(MOD-sp4): 49.0 ml EDV(sp4-el): 50.1 ml LVAs ap4: 16.3 cm2 LVLs ap4: 6.1 cm ESV(MOD-sp4): 35.3 ml ESV(sp4-el): 37.1 ml EF(MOD-sp4): 28.0 % EF(sp4-el): 26.0 % SV(sp4-el): 13.0 ml LA A4 area: 11.3 cm2 LA dimension(2D): 3.0 cm Doppler Measurements & Calculations MV V2 max: 116.4 cm/sec Ao V2 max: 125.9 cm/sec LV V1 max: 96.5 cm/sec MV max P.4 mmHg Ao max P.4 mmHg LV V1 max P.7 mmHg MV V2 mean: 71.3 cm/sec Ao V2 mean: 90.1 cm/sec LV V1 mean P.4 mmHg MV mean P.4 mmHg Ao mean P.6 mmHg LV V1 mean: 73.4 cm/sec MV V2 VTI: 13.5 cm Ao V2 VTI: 21.3 cm LV V1 VTI: 18.8 cm PA V2 max: 122.6 cm/sec PA V2 mean: 88.7 cm/sec ECHO/Echo Complete Interpretation Summary The estimated ejection fraction is 25 30 %. Severe LV systolic function No previos echo to compare Ordering Physician: Brisa Rawls Referring Physician: NO PCP GIVEN Performed By: Dariana Robertson RCS
--- NOTE | 2021-10-21 10:00 | EKG12_ITS ---
Test Reason : am ekg Blood Pressure : / mmHG Vent. Rate : 115 BPM Atrial Rate : 115 BPM P-R Int : 118 ms QRS Dur : 074 ms QT Int : 362 ms P-R-T Axes : 053 019 143 degrees QTc Int : 500 ms Sinus tachycardia Possible Left atrial enlargement Low voltage QRS Septal infarct (cited on or before 20-OCT-2021) T wave abnormality, consider anterolateral ischemia Abnormal ECG When compared with ECG of 21-OCT-2021 04:43, Serial changes of evolving Septal infarct Present Confirmed by MAXIMO ARAMBULA, FABIO ([id number]), health editor MARVIN OVERTON ([id number]) on 10/26/2021 10:13:16 AM Referred By: Curly Confirmed By:FABIO MARSH MD
[2021-10-21] MEDS: Aspirin E.C. 81 MG Tablet PO (10:53)
[2021-10-21] MEDS: Pantoprazole Sodium 20 MG Tablet PO (10:53)
[2021-10-21] MEDS: Clopidogrel Bisulfate 75 MG Tablet PO (10:53)
[2021-10-21] MEDS: Carvedilol 3.125 MG TABLET PO ×2 (10:53→22:54)
[2021-10-21] MEDS: Fludrocortisone Acetate 0.1 MG Tablet PO (10:53)
--- NOTE | 2021-10-21 11:05 | WOUNDNOTE ---
wound photo: left posterior lower leg
--- NOTE | 2021-10-21 11:50 | CASEMGMT ---
CADEN BAZZI Face to Face with patient for initial transition planning/care coordination assessment. RN ROSE MARY introduced self and role at [facility]. Patient sitting in chair, alert and oriented, sister in law at bedside. Patient willing to participate in assessment and is able to answer all questions appropriately. Care providers, pharmacy, and demographics verified. Patient wishes to discharge home, denies need for home health at this time. Patient to follow up in wound center for vac changes. CADEN BAZZI to call wound center to coordinate appts. Patient states she has no further needs or concerns at this time. CM to follow for discharge planning needs that may arise. PCP: No PCP, list provided to patient should she stay in the area and want to establish care. Specialists: Luci, vascular, Pati Li [employer], wound center Preferred Pharmacy: [facility] Insurance: [employer] [facility] Prescription Benefit: yes Living Will/HPOA: yes, SHARRON Christian LNOK: brother, sister in law Living Arrangements: Patient was traveling from [place] and is currently staying with bother and [id number] in their single story home with 2 steps and railing to enter. Patient is independent at home. Transportation: brother, sister in law DME/HHC: Patient states she has cane denies need for further DME. No previous HHC or SNF Disposition Plan: Patient to discharge home with family support and follow-up plans in place. Elisa BEDOLLA, RN, CM
--- NOTE | 2021-10-21 11:59 | WOUNDNOTE ---
Home VAC authorization started. prescription was signed by Pati Li NP. plan is for patient to get wound VAC changes on Mondays and at the wound healing center.
[2021-10-21] MEDS: Timolol 0.5% 5ML OPTH.BTL 5 DRP EACH EYE (12:25)
[2021-10-21] MEDS: Ezetimibe 10 MG Tablet PO (12:25)
--- NOTE | 2021-10-21 12:26 | CON.PCM.CA_ITS ---
Assessment & Plan Assessment/Plan (1) Atherosclerotic heart disease of [place] coronary artery without angina pectoris: (2) Acidosis, lactic: (3) Chest pain: (4) Current chronic use of systemic steroids: (5) Takotsubo cardiomyopathy: PLAN: This 66-year-old patient seen and evaluated today at bedside Following cardiac catheterization which was done yesterday, patient is a late presentation with large area of anteroapical hypokinesia on echocardiogram in the [facility] Q-wave noted in the anterior lead and significantly elevated cardiac markers in the ER more than 4000 symptoms started day before presentation where she was feeling nauseated diaphoretic left upper chest discomfort with some radiation to the left arm This patient has been under a lot of stress she is out of the state and she lost her and was looking for a residency She was here in the area with her brother and his , and the morning of arrival to the ER she developed nausea diaphoresis severe retrosternal left upper chest discomfort with some radiation to the left arm and she had significantly abnormal EKG with Q waves already noted anteriorly Based on the clinical presentation she was taken as an emergency to the [facility] where the procedure was performed from the right common femoral artery, reason for that patient had history of Raynaud's disease and bruises in the upper extremity. 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 Further evaluation by echocardiogram today revealed severe LV systolic dysfunction ejection fraction in the range of 25 - 30% with large area of anteroapical distal septal hypokinesia only the base of the heart contracts well There is no significant valvular abnormality and no pericardial effusion. Cardiac care plan recommendations; 1. I discussed in detail the cardiac care and the medication with the patient, nursing staff and the medical team Patient to continue on DAPT due to bruises shifted to Plavix and a low-dose aspirin to continue for years 2. Added beta-nicole carvedilol to the current treatment low-dose as tolerated by the blood pressure 3. Discussed need for statin patient was reluctant to take statin therefore we will start on Zetia 4. Patient can be transferred to the progressive care unit/stepdown sometime today 5. We will discuss Entresto low-dose, renal function is preserved. External other medical problem include history of elevated lactic acid and a wound on the right lower extremity I will defer to the medical team and wound care. 6. Patient will require LifeVest prior to discharge due to high risk of ventricular dysrhythmia with a large anteroapical hypokinesia. 7. I discussed the angiographic findings in the [facility] with Dr. Hoskins, patient to follow-up in his office following discharge for continuation of cardiac care 8. Patient set up for cardiac rehab program. HPI Consult Data Date of Consult: 11/27/21 HPI Narrative Reason for Consultation: Non STEMI HPI Narrative: FIDELINA SHANNON, is a 66 F who presents [facility] Medical History (Updated 11/12/21 @ 07:[address] 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 Leg cramps Migraines Non-smoker Open wound Osteoporosis Prediabetes Raynauds disease Takotsubo cardiomyopathy Home Medications calcium carbonate 500 mg calcium (1,250 mg) chewable tablet 1,000 mg PO BID 09/22/21 [History Last Taken Unknown] diclofenac sodium 1 % topical gel 1 ea topical PRN PRN Pain 09/22/21 [History Last Taken Unknown] estradiol 1 mg tablet 1 mg PO DAILY 09/22/21 [History Last Taken Unknown] fludrocortisone 0.1 mg tablet 0.1 mg PO DAILY 09/22/21 [History Last Taken 10/07/21] loperamide 2 mg capsule 2 mg PO Q4H PRN Diarrhea 09/22/21 [History Last Taken Unknown] loratadine 10 mg tablet 10 mg PO DAILY PRN Allergy Symptoms 09/22/21 [History Last Taken Unknown] omeprazole 20 mg tablet,delayed release 20 mg PO DAILY 09/22/21 [History Last Taken 10/07/21] ondansetron HCl 4 mg tablet 4 mg PO PRN PRN Nausea 09/22/21 [History Last Taken Unknown] sumatriptan succinate 100 mg tablet (Imitrex) 100 mg PO PRN PRN Migraine Headache 09/22/21 [History Last Taken Unknown] timolol 0.5 % eye drops 1 drp EACH EYE DAILY 09/22/21 [History Last Taken Unknown] vitamin B complex 1 tab PO DAILY 09/22/21 [History Last Taken Unknown] ascorbate calcium (vitamin C) 500 mg tablet 1 g PO DAILY 10/30/21 [History Last Taken Unknown] cholecalciferol (vitamin D3) 25 mcg (1,000 unit) chewable tablet 25 mcg PO DAILY 10/30/21 [History Last Taken Unknown] famotidine 20 mg tablet 20 mg PO BID 10/30/21 [History Last Taken Unknown] milnacipran 50 mg tablet (Savella) 50 mg PO BID 10/30/21 [History Last Taken Unknown] tretinoin 0.025 % topical cream 1 applic topical QHS 10/30/21 [History Last Taken Unknown] zoledronic acid 5 mg/100 mL in mannitol 5 %-water intravenous piggybck 1 ea .Route ONCE #100 mL 11/03/21 [Rx Last Taken Unknown] aspirin 81 mg tablet,delayed release 81 mg PO DAILY@0800 #90 tabs 11/19/21 [Rx Last Taken Unknown] clopidogrel 75 mg tablet 75 mg PO DAILY #90 tabs 11/19/21 [Rx Last Taken Unknown] ezetimibe 10 mg tablet 10 mg PO DAILY #90 tabs 11/19/21 [Rx Last Taken Unknown] levothyroxine 100 mcg tablet 100 mcg PO DAILY #30 tabs 11/19/21 [Rx Last Taken Unknown] onabotulinumtoxinA 100 unit solution for injection (Botox) See Rx Instructions .Route .COMPLEX PRN Migraine Headache 11/19/21 [History Last Taken Unknown] sacubitril 24 mg-valsartan 26 mg tablet (Entresto) 1 tab PO BID #90 tabs 2 [Rx Last Taken Unknown] prednisone 5 mg tablet 5 mg PO DAILY #90 tabs 11/20/21 [Rx Last Taken Unknown] Allergy/AdvReac Type Severity Reaction Status Date / Time adhesive Allergy Intermediate Rash Verified 11/03/21 16:27 amoxicillin [From Trimox] Allergy Rash Verified 11/03/21 16:27 cyclobenzaprine Allergy Rash Verified 11/03/21 16:27 [From Flexeril] erythromycin base Allergy Vomiting Verified 11/03/21 16:27 [From Luis Fernando-Tab] Iodinated Contrast Media Allergy Rash Verified 11/03/21 16:27 Sulfa (Sulfonamide Allergy Rash Verified 11/03/21 16:27 Antibiotics) bupropion [From Budeprion SR] AdvReac Other Verified 11/03/21 16:27 clonazepam AdvReac Other Verified 11/03/21 16:27 divalproex sodium AdvReac Other Verified 11/03/21 16:27 [From Depakote] duloxetine [From Cymbalta] AdvReac Other Verified 11/03/21 16:27 meperidine [From Demerol] AdvReac Other Verified 11/03/21 16:27 methylprednisolone AdvReac Other Verified 11/03/21 16:27 [From Medrol] Family History Mother Heart disease ALS (amyotrophic lateral sclerosis) Father Heart disease Surgical History History of laparoscopic cholecystectomy Hx of appendectomy Hx of bilateral cataract extraction Hx of colonoscopy Hx of tonsillectomy Hx of total knee arthroplasty Hx of vaginal hysterectomy Social History household members: spouse current occupational status: retired 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 Chest examination; clear to auscultation bilateral Examination of the right common femoral artery access site no evidence of hematoma or bruises. Risk Stratification Risk Stratification Applicable: Yes Age >/= 65: Yes >/= 3 CAD Risk Factors (HTN, HLD, DM, family hx of CAD, or current smoker): Yes Aspirin Use in the Past 7 Days: Yes Severe Angina (>/= episodes in 24 hours): No EKG ST Changes >/= 0.5mm: Yes Positive Cardiac Marker: No YVES Risk Stratification Score: 4 YVES % Risk: 20% Risk Objective Data Vital Signs: Vital Signs Temp Pulse Resp BP Pulse Ox O2 Del Method O2 Flow Rate 97.9 F 107 H 18 155/78 H 99 Room Air 2 10/21/21 08:00 10/21/21 08:00 10/21/21 08:00 10/21/21 08:00 10/21/21 08:00 10/21/21 08:00 10/20/21 17:45 Oxygen Flow Rate (L/min) 2 Oxygen Delivery Method Room Air Weight: 141 lb 1.533 oz Body Mass Index (BMI) 28.5 Intake & Output: Intake and Output for Last 24 Hours 10/19/21 10/20/21 10/21/21 23:59 23:59 23:59 Intake Total 2100 / 2100 1439.33 / 1439.33 Output Total 300 / 300 650 / 650 Balance 1800 / 1800 789.33 / 789.33 Lab / Micro Data Result Diagrams: 10/23/21 05:01 10/23/21 05:01 Labs: Laboratory Results - last 24 hr 10/20/21 09:41: Diff Path Review June10/20/21 09:41: Hemoglobin A1c 6.1 H 10/20/21 12:05: S.aureus Protein A PCR NEGATIVE, MRSA (PCR) Negative 10/20/21 12:30: Troponin I High Sens 4083 H* 10/20/21 13:25: PT 13.8, INR 1.1, APTT 23.9 L 10/20/21 23:45: Lactic Acid 6.9 H* 10/21/21 01:45: APTT 84.2 H 10/21/21 05:09: WBC 23.4 H, RBC 4.71, Hgb 14.9, Hct 43.9, MCV 93.2, MCH 31.6, MCHC 33.9, RDW Std Deviation 44.1 H, RDW Coeff of Amy 12.9, Plt Count 325, MPV 10.2, Immature Gran % (Auto) 1.000 H, Neut % (Auto) 91.5 H, Lymph % (Auto) 5.1 L , [place] % (Auto) 2.3, Eos % (Auto) 0.0, Baso % (Auto) 0.1, Absolute Neuts (auto) 21.4 H, Absolute Lymphs (auto) 1.20, Nucleated RBC % 0, Differential Comment SCANNED 10/21/21 05:09: Sodium 129 L, Potassium 6.0 H*, Chloride 99, Carbon Dioxide 17.0 L, Anion Gap 13, BUN 15, Creatinine 0.86, Estim Creat Clear Calc 65.89, Est GFR (MDRD) Af Amer 85, Est GFR (MDRD) Non-Af 71, BUN/Creatinine Ratio 17.5, Glucose 228 H, Calcium 8.4 L, Total Bilirubin 0.50, AST 244 H, ALT 141 H, Alkaline Phosphatase 113, Total Protein 7.4, Albumin 3.1 L, Globulin 4.3 H, Albumin/Globulin Ratio 0.7 L, Triglycerides 138, Cholesterol 223 H, LDL Cholesterol 107, VLDL Cholesterol 28, HDL Cholesterol 88 10/21/21 05:09: Lactic Acid 3.7 H* 10/21/21 08:30: APTT 84.8 H 10/21/21 08:30: Sodium 132 L, Potassium 3.9, Chloride 99, Carbon Dioxide 19.0 L, Anion Gap 14, BUN 14, Creatinine 1.05 H, Estim Creat Clear Calc 53.97, Est GFR (MDRD) Af Amer 68, Est GFR (MDRD) Non-Af 56 L, BUN/Creatinine Ratio 13.3, Glucose 241 H, Calcium 9.1 10/21/21 09:05: Urine Color Yellow, Urine Clarity Sl. Cloudy, Urine pH 6.5, Ur Specific [place] 1.010, Urine Protein 15 H, Urine Glucose (UA) 100 H, Urine Ketones Negative, Urine Occult Blood 10 H, Urine Nitrite Negative, Urine Bilirubin Negative, Urine Urobilinogen Normal, Ur Leukocyte Esterase Negative, Urine RBC 0-5 SEEN, Urine WBC 0 SEEN, Ur Squamous Epith Cells 0-5 SEEN, Urine Bacteria 1+, Urine Mucus 0 SEEN Micro: Microbiology 10/20/21 12:05 Wound - Leg, Left Gram Stain - Final 10/20/21 12:05 Wound - Leg, Left Wound Culture - Preliminary No growth-Final to follow 10/20/21 12:42 Nasal Secretion SARS-CoV-2 & FLU Antigen (Rapid) - Final Cardiology Labs/Tests 10/20/21 09:41: Hemoglobin A1c 6.1 H 10/20/21 13:25: PT 13.8, INR 1.1, APTT 23.9 L 10/20/21 23:45: Lactic Acid 6.9 H* 10/21/21 01:45: APTT 84.2 H 10/21/21 05:09: WBC 23.4 H, RBC 4.71, Hgb 14.9, Hct 43.9, MCV 93.2, MCH 31.6, MCHC 33.9, Plt Count 325, MPV 10.2, Immature Gran % (Auto) 1.000 H, Neut % (Auto) 91.5 H, Lymph % (Auto) 5.1 L, [place] % (Auto) 2.3, Eos % (Auto) 0.0, Baso % (Auto) 0.1, Absolute Neuts (auto) 21.4 H, Nucleated RBC % 0 10/21/21 05:09: Sodium 129 L, Potassium 6.0 H*, Chloride 99, Carbon Dioxide 17.0 L, Anion Gap 13, BUN 15, Creatinine 0.86, Est GFR (MDRD) Af Amer 85, Est GFR (MDRD) Non-Af 71, BUN/Creatinine Ratio 17.5, Glucose 228 H, Calcium 8.4 L, Total Bilirubin 0.50, Triglycerides 138, Cholesterol 223 H, LDL Cholesterol 107, VLDL Cholesterol 28, HDL Cholesterol 88 10/21/21 05:09: Lactic Acid 3.7 H* 10/21/21 08:30: APTT 84.8 H 10/21/21 08:30: Sodium 132 L, Potassium 3.9, Chloride 99, Carbon Dioxide 19.0 L, Anion Gap 14, BUN 14, Creatinine 1.05 H, Est GFR (MDRD) Af Amer 68, Est GFR (MDR D) Non-Af 56 L, BUN/Creatinine Ratio 13.3, Glucose 241 H, Calcium 9.1 10/21/21 09:05: Urine Color Yellow, Urine Clarity Sl. Cloudy, Urine pH 6.5, Ur Specific [place] 1.010, Urine Protein 15 H, Urine Glucose (UA) 100 H, Urine Ketones Negative, Urine Occult Blood 10 H, Urine Nitrite Negative, Urine Bilirubin Negative, Urine Urobilinogen Normal, Ur Leukocyte Esterase Negative, Urine RBC 0-5 SEEN, Urine WBC 0 SEEN Rhythm: EKG: ECHO: Stress Test: Cardiac Cath: PCI: CT Surgery: Holter monitor: EPS: PPM: CXR: Chest CT Scan: Radiography Diagnostic Testing: Radiology Impression Echocardiogram 10/21/21 09:42 Interpretation Summary The estimated ejection fraction is 25 30 %. Severe LV systolic function No previos echo to compare Ordering Physician: Brisa Rawls Referring Physician: FERNANDO PCP GIVEN Performed By: aDriana Robertson RCS
--- NOTE | 2021-10-21 12:46 | WOUNDNOTE ---
Home wound VAC approved for when patient is discharged home.
--- NOTE | 2021-10-21 14:10 | CASEMGMT ---
RN CM called and left message at [facility] wound center to facilitate appts for wound vac changes. Awaiting call back. CM will continue to follow this patient and plan for a safe discharge.
--- NOTE | 2021-10-21 15:10 | CASEMGMT ---
Per Dr. Davison's note, pt will need set up for [facility] at discharge. Call to [place] [facility] to see if Zena MAURO is working on [facility] and she will call have Zena call this RN CM back. CM to follow. Edwige NEGRETE CM
[2021-10-21] MEDS: Heparin Injection (Vial) 5,000 UNIT/ML VIAL 5000 UNIT SC (22:54)
[2021-10-22] VITALS (12 sets, daily range): BP systolic 117–139; BP diastolic 63–76; PULSE 85–115; RESP 16–18; TEMP 36.4–36.7; O2SAT 96–100
[2021-10-22] MEDS: Levothyroxine 125 MCG Tablet PO (05:04)
[2021-10-22 06:44] LABS: Absolute Lymphocyte Count 2.86 X10^3/uL (0.83-4.51); Absolute Neutrophil Count 13.1 X10^3/uL (2.0-7.7); Basophil# 0.04 X10^3/uL; Basophil% 0.2 % (0-1); Eosinophil# 0.02 X10^3/uL; Eosinophils% 0.1 % (0-5); Hematocrit 37.8 % (37-47); Hemoglobin 12.5 g/dL (12.0-15.0); Lymphocyte # 2.86 X10^3/ul (0.83-4.51); Lymphocyte % 16.1 % (19-41); Mean Corp Hgb Conc 33.1 g/dL (32-36); Mean Corpuscular Hgb 31.4 pg (27.0-32.0); Mean Platelet Vol. 10.3 fl (6.2-12.0); Monocyte# 1.59 X10^3/uL; Monocyte% 8.9 % (0-10); NRBC Flagged by Analyzer 0 % (0-5); Neutrophil % 73.7 % (47-70); POSITIVE DIFFERENTIAL YES; Platelet Count 313 K/mm3 (150-450); RBC Distribution Width CV 12.9 % (11.6-14.6); RBC Distribution Width SD 44.9 fl (35.1-43.9); Red Blood Count 3.98 M/mm3 (4.2-5.4); White Blood Count 17.8 K/mm3 (4.4-11.0)
[2021-10-22 06:48] LABS: Differential Indicated SCAN CRITERIA MET
[2021-10-22 06:58] LABS: Differential Comment SCANNED
[2021-10-22 07:22] LABS: ALB/GLOB Ratio 0.9 RATIO (0.9-2.4); AST(SGOT) 97 U/L (15-37); Alanine Aminotransfer ALT/SGPT 101 U/L (13-56); Albumin, Serum 2.9 g/dL (3.2-5.0); Alkaline Phosphatase 99 U/L (45-117); Anion Gap 11 (5-15); BUN 19 mg/dL (7-18); Calcium,Total 8.5 mg/dL (8.5-10.1); Chloride 103 mmol/L (98-107); Creatinine, Serum 0.68 mg/dL (0.55-1.02); EST Glomerular Filtration Rate 92 mL/min (>60); Est Glom Filt Rate - Afr Amer 112 mL/min (>60); Estimated Creatinine Clearance 83.33 ml/min; Globulin 3.2 g/dL (2.2-4.2); Glucose 153 mg/dL (74-106); Potassium 4.3 mmol/L (3.5-5.1); Protein, Total 6.1 g/dL (6.4-8.2); Sodium Level 134 mmol/L (136-145)
--- NOTE | 2021-10-22 08:20 | DCINST_ITS ---
Discharge Instructions Diet Discharge Diet: Low fat / Low cholesterol and 2000 mg Sodium Diet Activity Discharge Activity: Return to Normal Activity Follow Up Care Test Results: Test results from this visit will be discussed in further detail at your follow- up appointment, if applicable. Discharge Plan Admission Admit Date/Time: 10/20/21 17:13 Primary Reason for Your Visit: Acute NSTEMI Attending Provider: Brisa Rawls Primary Care Provider: Care Physician,No Primary Consulting Providers: Meng Davison Instructions Additional Instructions / Restrictions: Continue to take all your medications as prescribed. Follow-up with your primary care doctor and with cardiology within 2 weeks Follow-up with cardiac rehab Discharge Orders/Prescriptions Prescriptions: New atorvastatin 80 mg Tablet 80 mg PO QHS 30 Days Qty: 30 0RF carvedilol 6.25 mg Tablet 6.25 mg PO BID 30 Days Qty: 60 0RF clopidogrel 75 mg Tablet 75 mg PO DAILY 30 Days Qty: 30 0RF aspirin 81 mg Tablet,Delayed Release (Dr/Ec) 81 mg PO DAILY@0800 30 Days Qty: 30 0RF ezetimibe 10 mg Tablet 10 mg PO DAILY 30 Days Qty: 30 0RF Entresto 24-26 mg Tablet 1 ea PO BID 30 Days Qty: 60 0RF Continued loperamide 2 mg Capsule 2 mg PO Q4H PRN (Reason: Diarrhea) Rx Instructions: administer after each loose stool until symptoms controlled; do not exceed 8 mg per 24 hrs sumatriptan succinate [Imitrex] 100 mg Tablet 100 mg PO PRN PRN (Reason: Migraine Headache) Rx Instructions: do not exceed 2 doses per 24 hrs ondansetron HCl 4 mg Tablet 4 mg PO PRN PRN (Reason: Nausea) famotidine 20 mg Tablet 20 mg PO DAILY estradiol 1 mg Tablet 1 mg PO DAILY timolol 0.5 % Drops 1 drp EACH EYE DAILY vitamin B complex Tablet 1 tab PO DAILY calcium carbonate 500 mg calcium (1,250 mg) Tablet,Chewable 1,000 mg PO BID dexamethasone 0.5 mg Tablet 0.5 mg PO DAILY fludrocortisone 0.1 mg Tablet 0.1 mg PO DAILY loratadine 10 mg Tablet 10 mg PO DAILY PRN (Reason: Allergy Symptoms) diclofenac sodium 1 % Gel 1 ea TOPICAL PRN PRN (Reason: Pain) omeprazole 20 mg Tablet,Delayed Release (Dr/Ec) 20 mg PO DAILY Savella 50 mg Tablet 50 mg PO DAILY cholecalciferol (vitamin D3) 25 mcg (1,000 unit) Tablet,Chewable 25 mcg PO BID levothyroxine 125 mcg Capsule 125 mcg PO MOTUWETHFRSA acetaminophen-codeine 300-30 mg Tablet 1 tab PO BID Discontinued potassium chloride [Klor-Con] 20 mEq Packet 30 meq PO DAILY Referrals / Follow Up: Anette Melgar MD [Med Staff - Active Staff] - 10/27/21 8:30 am David Rasheed MD [Med Staff - Courtesy Staff] - 11/02/21 2:30 pm Center,Wound [Non-Staff] - 10/26/21 10:30 am Disposition Disposition (needs filled in before D/C Order can be placed): Home, Self Care
--- NOTE | 2021-10-22 08:53 | CASEMGMT ---
Message from Zena at [place] [facility] and she states she will be working [facility] for pt today. Pt has home vac approved and appts set up at [facility] wound center for Mondays and . CM to follow. Edwige NEGRETE CM
--- NOTE | 2021-10-22 09:27 | PN.HOSP_ITS ---
Subjective Subjective Follow-up on Acute NSTEMI/ischemic cardiomyopathy: Patient seen and examined. She feels improved. Slightly tachycardic on telemetry. Denied any new complaint. Objective Data Objective Data Vital Signs: Vital Signs Temp Pulse Resp BP Pulse Ox O2 Del Method O2 Flow Rate 97.9 F 101 H 16 139/76 H 100 Room Air 2 10/22/21 04:00 10/22/21 07:00 10/22/21 04:00 10/22/21 04:00 10/22/21 04:00 10/22/21 07:44 10/21/21 16:35 Oxygen Flow Rate (L/min) 2 Oxygen Delivery Method Room Air Weight: 64 kg Body Mass Index (BMI) 28.5 Intake & Output: Intake and Output for Last 24 Hours 10/20/21 10/21/21 10/22/21 23:59 23:59 23:59 Intake Total 2100 / 2100 1439.33 / 1439.33 Output Total 300 / 300 650 / 650 Balance 1800 / 1800 789.33 / 789.33 Lab / Micro Data Result Diagrams: 10/22/21 05:35 10/22/21 05:35 Labs: Laboratory Results - last 24 hr 10/21/21 09:05: Urine RBC 0-5 SEEN, Urine WBC 0 SEEN, Ur Squamous Epith Cells 0- 5 SEEN, Urine Bacteria 1+, Urine Mucus 0 SEEN 10/22/21 05:35: WBC 17.8 H, RBC 3.98 L, Hgb 12.5, Hct 37.8, MCV 95.0, MCH 31.4, MCHC 33.1, RDW Std Deviation 44.9 H, RDW Coeff of Amy 12.9, Plt Count 313, MPV 10.3, Immature Gran % (Auto) 1.000 H, Neut % (Auto) 73.7 H, Lymph % (Auto) 16.1 L, [place] % (Auto) 8.9, Eos % (Auto) 0.1, Baso % (Auto) 0.2, Absolute Neuts (auto) 13.1 H, Absolute Lymphs (auto) 2.86, Nucleated RBC % 0, Differential Comment SCANNED, Diff Path Review June10/22/21 05:35: Sodium 134 L, Potassium 4.3, Chloride 103, Carbon Dioxide 20.0 L , Anion Gap 11, BUN 19 H, Creatinine 0.68, Estim Creat Clear Calc 83.33, Est GFR (MDRD) Af Amer 112, Est GFR (MDRD) Non-Af 92, BUN/Creatinine Ratio 28.0 H, Glucose 153 H, Calcium 8.5, Total Bilirubin 0.40, AST 97 H, ALT 101 H, Alkaline Phosphatase 99, Total Protein 6.1 L, Albumin 2.9 L, Globulin 3.2, Albumin/Globulin Ratio 0.9 Micro: Microbiology 10/20/21 12:05 Wound - Leg, Left Gram Stain - Final 10/20/21 12:05 Wound - Leg, Left Wound Culture - Final No growth aerobically. 10/20/21 12:42 Nasal Secretion SARS-CoV-2 & FLU Antigen (Rapid) - Final Radiography Diagnostic Testing: Radiology Impression Echocardiogram 10/21/21 09:42 Interpretation Summary The estimated ejection fraction is 25 30 %. Severe LV systolic function No previos echo to compare Ordering Physician: Brisa Rawls Referring Physician: NO PCP GIVEN Performed By: Dariana Robertson RCS Physical Exam Narrative Physical exam: General: Alert, Oriented x3, Cooperative, looks improved HEENT: Atraumatic Oral: Moist Mucosa Neck: Supple Lungs: Clear to auscultation Cardiovascular: HS I+II, regular, no murmurs Abdomen: Bowel Sounds Present, Soft, Non Tender Extremities: No edema Skin: No rashes, No breakdown Neurological: Grossly intact Psych/Mental Status: Appropriate Assessment & Plan Assessment/Plan (1) NSTEMI, initial episode of care: PLAN: Plan 1. Acute chest pain/non-STEMI, status postcardiac cath -findings of chronic total occlusion 2d-echo shows EF of 25 -30% Continue on aspirin, Plavix, Coreg, Zetia Follow-up on cardiology recommendation Patient will need a LifeVest at discharge 2. Hyperlipidemia, patient reluctant to try statins, Continue on Zetia 3. [place]'s disease, continue on dexamethasone, fludrocortisone 4. Hypothyroidism, continue Synthroid 5. Acute on chronic leg wound, status post recent wound debridement, on wound VAC Wound RN consulted?refer to wound notes/pictures Wound looks clean; no indication for antibiotics 6. H/o migraines/fibromyalgia/Raynaud's disease/GERD 7. DVT PPx- Heparin SC Charges/Coding Visit Charges Inpatient E&M: 97545 Subs Hosp L2
[2021-10-22] MEDS: Acetaminophen 325 MG Tablet 650 MG PO ×3 (09:41→22:08)
[2021-10-22] MEDS: Carvedilol 6.25 MG Tablet PO ×2 (09:41→21:54)
[2021-10-22] MEDS: Heparin Injection (Vial) 5,000 UNIT/ML VIAL 5000 UNIT SC ×2 (09:42→21:55)
[2021-10-22] MEDS: Clopidogrel Bisulfate 75 MG Tablet PO (09:42)
[2021-10-22] MEDS: Fludrocortisone Acetate 0.1 MG Tablet PO (09:42)
[2021-10-22] MEDS: Aspirin E.C. 81 MG Tablet PO (09:42)
[2021-10-22] MEDS: Ezetimibe 10 MG Tablet PO (09:43)
[2021-10-22] MEDS: Pantoprazole Sodium 20 MG Tablet PO (09:47)
--- NOTE | 2021-10-22 10:00 | EKG12_ITS ---
Test Reason : AM EKG Blood Pressure : / mmHG Vent. Rate : 086 BPM Atrial Rate : 086 BPM P-R Int : 094 ms QRS Dur : 088 ms QT Int : 454 ms P-R-T Axes : 018 -06 155 degrees QTc Int : 543 ms Sinus rhythm with short MA Inferior infarct , age undetermined T wave abnormality, consider anterolateral ischemia Prolonged QT Abnormal ECG Confirmed by PARTH ARAMBULA, GORDON ([id number]), design editor MARVIN OVERTON ([id number]) on 10/26/2021 10:30:52 AM Referred By: Confirmed By:GORDON ALBA MD
[2021-10-22 10:26] LABS: Pathologist Review Reviewed
[2021-10-22] MEDS: Timolol 0.5% 5ML OPTH.BTL 1 DRP EACH EYE (10:32)
[2021-10-22] MEDS: SACUBITRIL/VALSARTAN 24/26 MG TABLET 1 EACH PO ×2 (10:32→21:54)
[2021-10-22] MEDS: 0.9% Saline Lock 10 ML Syringe IV (10:39)
--- NOTE | 2021-10-22 13:05 | CASEMGMT ---
Pt to be sent home on Entresto and med e-scribed to [facility]. Call to [facility] to check coverage/co-pay and after insurance info provided to pharmacy, she states pt's co-pay is $47. CM to update pt. Edwige NEGRETE CM
--- NOTE | 2021-10-22 13:29 | CASEMGMT ---
This RN CM to room to discuss Entresto cost and d/c plan and pt is in the bathroom. CM to attempt again later. SStaten RN CM
--- NOTE | 2021-10-22 14:00 | PN.CARD_ITS ---
Documented by User: JALYN Pinon 10/22/21 14:16 Subjective Subjective Patient seen and examined today. She has not had any episodes of chest discomfort. She does not have any shortness of breath or palpitations at she was aware of. She does have multiple questions about her diagnosis and further plan of care. Objective Data Vital Signs: Vital Signs Temp Pulse Resp BP Pulse Ox O2 Del Method O2 Flow Rate 97.6 F L 115 H 16 134/76 H 97 Room Air 2 10/22/21 09:57 10/22/21 09:57 10/22/21 09:57 10/22/21 09:57 10/22/21 09:57 10/22/21 09:57 10/21/21 16:35 Oxygen Flow Rate (L/min) 2 Oxygen Delivery Method Room Air Weight: 141 lb 1.533 oz Body Mass Index (BMI) 28.5 Intake & Output: Intake and Output for Last 24 Hours 10/20/21 10/21/21 10/22/21 23:59 23:59 23:59 Intake Total 2100 / 2100 1439.33 / 1439.33 600 / 600 Output Total 300 / 300 650 / 650 Balance 1800 / 1800 789.33 / 789.33 600 / 600 Lab / Micro Data Result Diagrams: 10/23/21 05:01 10/23/21 05:01 Labs: Laboratory Results - last 24 hr 10/20/21 09:41: Diff Path Review Reviewed 10/22/21 05:35: WBC 17.8 H, RBC 3.98 L, Hgb 12.5, Hct 37.8, MCV 95.0, MCH 31.4, MCHC 33.1, RDW Std Deviation 44.9 H, RDW Coeff of Amy 12.9, Plt Count 313, MPV 10.3, Immature Gran % (Auto) 1.000 H, Neut % (Auto) 73.7 H, Lymph % (Auto) 16.1 L, [place] % (Auto) 8.9, Eos % (Auto) 0.1, Baso % (Auto) 0.2, Absolute Neuts (auto) 13.1 H, Absolute Lymphs (auto) 2.86, Nucleated RBC % 0, Differential Comment SCANNED, Diff Path Review June10/22/21 05:35: Sodium 134 L, Potassium 4.3, Chloride 103, Carbon Dioxide 20.0 L , Anion Gap 11, BUN 19 H, Creatinine 0.68, Estim Creat Clear Calc 83.33, Est GFR (MDRD) Af Amer 112, Est GFR (MDRD) Non-Af 92, BUN/Creatinine Ratio 28.0 H, Glucose 153 H, Calcium 8.5, Total Bilirubin 0.40, AST 97 H, ALT 101 H, Alkaline Phosphatase 99, Total Protein 6.1 L, Albumin 2.9 L, Globulin 3.2, Albumin/Globulin Ratio 0.9 Micro: Microbiology 10/20/21 12:45 Blood Culture (Wb) - Anticubital Right Blood Culture - Preliminary No growth in 48 hours. 10/20/21 12:30 Blood Culture (Wb) - Anticubital Left Blood Culture - Preliminary No growth in 48 hours. 10/21/21 09:05 Urine, Clean Catch Urine Culture - Preliminary Culture exhibits no growth. 10/20/21 12:05 Wound - Leg, Left Gram Stain - Final 10/20/21 12:05 Wound - Leg, Left Wound Culture - Final No growth aerobically. Cardiology Labs/Tests 10/22/21 05:35: WBC 17.8 H, RBC 3.98 L, Hgb 12.5, Hct 37.8, MCV 95.0, MCH 31.4, MCHC 33.1, Plt Count 313, MPV 10.3, Immature Gran % (Auto) 1.000 H, Neut % (Auto) 73.7 H, Lymph % (Auto) 16.1 L, [place] % (Auto) 8.9, Eos % (Auto) 0.1, Baso % (Auto) 0.2, Absolute Neuts (auto) 13.1 H, Nucleated RBC % 0 10/22/21 05:35: Sodium 134 L, Potassium 4.3, Chloride 103, Carbon Dioxide 20.0 L , Anion Gap 11, BUN 19 H, Creatinine 0.68, Est GFR (MDRD) Af Amer 112, Est GFR (MDRD) Non-Af 92, BUN/Creatinine Ratio 28.0 H, Glucose 153 H, Calcium 8.5, Total Bilirubin 0.40 Rhythm: SR ECHO: 10/21/21: The estimated ejection fraction is 25 30 %. Severe LV systolic function No previos echo to compare Cardiac Cath 10/20/21 Hemodynamics; 1.? LVEDP elevated to 25 mmHg 2.? There is no systolic gradient across aortic valve. Coronary angiography; 1.? Left main is normal angiographically bifurcating into LAD and the left circumflex. 2.? The left anterior descending artery appears, occluded at the midportion with left to left collaterals there is no clear demonstration of the site of occlusion of the LAD. 3 the left circumflex artery angiographically appear normal, large OM1 branch 4.? RCA is large dominant and normal angiographically with no collaterals noted from the right to the left Physical Exam Const alert, oriented x3, no apparent distress and healthy appearing HEENT normocephalic, head/scalp atraumatic, hearing grossly normal bilaterally, external ears normal, external nose normal and moist oral mucous membranes Eyes PERRL, EOMs intact bilaterally, conjunctivae normal and no scleral icterus Neck no lymphadenopathy, supple and no JVD Resp normal respiratory effort and clear to auscultation bilaterally Cardio regular rate, regular rhythm, S1 normal heart sound, S2 normal heart sound, no murmurs, no rub, no gallops, no clicks, no JVD and peripheral pulses 2+ throughout GI normal to inspection, nondistended, normoactive bowel sounds, soft to palpation, non-tender and non-distended Extremity normal to inspection, normal capillary refill, no clubbing, cyanosis or edema an d no pedal edema Extremity Narrative: would vac noted to left loer extremity. Neuro oriented x3, CN's II-XII intact bilaterally, moves all extremities and no focal motor deficits Psych cooperative and affect normal Assessment & Plan Assessment/Plan (1) NSTEMI, initial episode of care: (2) Atherosclerotic heart disease of [place] coronary artery without angina pectoris: (3) Current chronic use of systemic steroids: (4) Takotsubo cardiomyopathy: PLAN: * Patient does have an LAD that appears to be totally occluded that is chronic in nature. Would like to treat with aggressive medical management with carvedilol, aspirin, clopidogrel. She will be started on Entresto for cardiomyopathy. She does not want to take a statin but is agreeable to taking Zetia. * Patient's ejection fraction is noted to be 30%. We will treat with aggressive medical management with carvedilol and Entresto. On an outpatient basis we will continue to titrate medications as tolerated. Would like to repeat an echocardiogram in 6 to 12 weeks to reevaluate LV function. If her ejection fraction does not improve she should be considered for a prophylactic ICD. As her ejection fraction is low will refer patient for a LifeVest at discharge. * Ideally will refer patient to cardiac rehab on an outpatient basis. Charges/Coding Visit Charges Inpatient E&M: 71659 Init Hosp L2 Documented by User: Dr. Meng Davison MD 10/23/21 19:20 Lab / Micro Data Result Diagrams: 10/23/21 05:01 10/23/21 05:01 Assessment & Plan Assessment/Plan (1) NSTEMI, initial episode of care: (2) Atherosclerotic heart disease of [place] coronary artery without angina pectoris: (3) Current chronic use of systemic steroids: (4) Takotsubo cardiomyopathy: PLAN: * Patient does have an LAD that appears to be totally occluded that is chronic in nature. Would like to treat with aggressive medical management with carvedilol, aspirin, clopidogrel. She will be started on Entresto for cardiomyopathy. She does not want to take a statin but is agreeable to taking Zetia. * Patient's ejection fraction is noted to be 30%. We will treat with aggressive medical management with carvedilol and Entresto. On an outpatient basis we will continue to titrate medications as tolerated. Would like to repeat an echocardiogram in 6 to 12 weeks to reevaluate LV function. If her ejection fraction does not improve she should be considered for a prophylactic ICD. As her ejection fraction is low will refer patient for a LifeVest at discharge. * Ideally will refer patient to cardiac rehab on an outpatient basis. I independently examined the patient, review all the medical record including cardiac telemetry, current medication, and agree with the plan of cardiac treatment as per midlevel documentation High risk patient with guarded prognosis, patient with severe LV systolic dysfunction. Collaterals left to left with possible chronically occluded LAD, there was no collateral demonstrated from the right side. Finding of the cardiac catheterization discussed in detail with the patient 1. Continue current treatment 2. CTA coronary/cardiac MRI for myocardial viability study as an outpatient 3. Follow-up as an outpatient with echocardiogram and discuss need for ICD/evaluate for BiV pacer. 4. Patient to follow-up with the cardiology team at [facility] for continuation of cardiac care and to discuss long-term plan.
--- NOTE | 2021-10-22 15:00 | NURSING ---
Wound vac dressing changed at this time with Charge nurse Bossman NEGRETE
[2021-10-22 15:11] LABS: Pathologist Review Reviewed
[2021-10-23] VITALS (7 sets, daily range): BP systolic 92–133; BP diastolic 48–66; PULSE 80–98; RESP 16; TEMP 36.4–36.8; O2SAT 98–100
[2021-10-23 05:55] LABS: Absolute Lymphocyte Count 3.04 X10^3/uL (0.83-4.51); Absolute Neutrophil Count 7.5 X10^3/uL (2.0-7.7); Basophil# 0.02 X10^3/uL; Basophil% 0.2 % (0-1); Eosinophil# 0.04 X10^3/uL; Eosinophils% 0.3 % (0-5); Hematocrit 33.6 % (37-47); Lymphocyte # 3.04 X10^3/ul (0.83-4.51); Lymphocyte % 26.1 % (19-41); Mean Corp Hgb Conc 32.7 g/dL (32-36); Mean Corpuscular Hgb 30.6 pg (27.0-32.0); Mean Corpuscular Volume 93.6 fL (81-99); Mean Platelet Vol. 10.5 fl (6.2-12.0); Monocyte# 0.98 X10^3/uL; Monocyte% 8.4 % (0-10); NRBC Flagged by Analyzer 0 % (0-5); Neutrophil # 7.46 X10^3/uL (2.7-7.7); Neutrophil % 64.1 % (47-70); Platelet Count 261 K/mm3 (150-450); RBC Distribution Width CV 12.9 % (11.6-14.6); RBC Distribution Width SD 44.5 fl (35.1-43.9); Red Blood Count 3.59 M/mm3 (4.2-5.4); White Blood Count 11.7 K/mm3 (4.4-11.0)
[2021-10-23] MEDS: Levothyroxine 125 MCG Tablet PO (06:02)
[2021-10-23 06:22] LABS: ALB/GLOB Ratio 0.9 RATIO (0.9-2.4); AST(SGOT) 43 U/L (15-37); Alanine Aminotransfer ALT/SGPT 71 U/L (13-56); Albumin, Serum 2.7 g/dL (3.2-5.0); Alkaline Phosphatase 81 U/L (45-117); Anion Gap 8 (5-15); BUN 23 mg/dL (7-18); BUN/Creat Ratio 35.3 RATIO (10-20); Calcium,Total 7.9 mg/dL (8.5-10.1); Chloride 103 mmol/L (98-107); Creatinine, Serum 0.65 mg/dL (0.55-1.02); EST Glomerular Filtration Rate 97 mL/min (>60); Est Glom Filt Rate - Afr Amer 117 mL/min (>60); Estimated Creatinine Clearance 89.63 ml/min; Glucose 105 mg/dL (74-106); Potassium 3.8 mmol/L (3.5-5.1); Protein, Total 5.7 g/dL (6.4-8.2); Sodium Level 133 mmol/L (136-145)
--- NOTE | 2021-10-23 09:31 | CASEMGMT ---
Addendum entered by Elisa Mejia 10/23/21 13:54: Per [employer] rep, nurse will be here about 1430 to apply [employer]. This RN ROSE MARY back to room to see if pt had any further questions and pt states no further questions/concerns. Edwige NEGRETE CM Addendum entered by Elisa Mejia 10/23/21 13:25: This RN ROSE MARY has not heard back from [employer] and they have not been to hospital. Pt had said this am that they told her they would be here between 12p-1p and they have yet to come. Message left with Arnaldo at [facility] again to inquire about set up and make aware of d/c today. CM to follow. Edwige NEGRETE CM Addendum entered by Elisa Mejia 10/23/21 09:58: This RN CM to room to update pt on Entresto cost and discuss d/c plan. Pt is aware of [employer] placement prior to discharge and wound center appt's. Pt has home wound vac in place. Pt aware of Entresto cost and to discuss with cardiology at f/u for any further concerns. Pt states no concerns with paying for med at this time. Pt states she had some other questions but cannot remember at this time. Pt has a notebook at bedside and writes everything down. CADEN BAZZI advised pt will check back with her later to see if pt remembers questions. Advised pt to write questions down if she remembers, voices understanding. CM to follow. Edwige NEGRETE CM Original Note: Call to [facility] [employer] rep to check on pt's [employer] for discharge and he will call this RN ROSE MARY back with update. CM to follow. Edwige NEGRETE CM
[2021-10-23] MEDS: Fludrocortisone Acetate 0.1 MG Tablet PO (09:43)
[2021-10-23] MEDS: Heparin Injection (Vial) 5,000 UNIT/ML VIAL 5000 UNIT SC (09:43)
[2021-10-23] MEDS: Aspirin E.C. 81 MG Tablet PO (09:43)
[2021-10-23] MEDS: Ezetimibe 10 MG Tablet PO (09:43)
[2021-10-23] MEDS: Clopidogrel Bisulfate 75 MG Tablet PO (09:43)
[2021-10-23] MEDS: SACUBITRIL/VALSARTAN 24/26 MG TABLET 1 EACH PO (09:43)
[2021-10-23] MEDS: Carvedilol 6.25 MG Tablet PO (09:43)
[2021-10-23] MEDS: Pantoprazole Sodium 20 MG Tablet PO (09:43)
[2021-10-23] MEDS: Timolol 0.5% 5ML OPTH.BTL 1 DRP EACH EYE (09:44)
--- NOTE | 2021-10-23 10:11 | WOUNDNOTE ---
Was planning on changing the wound VAC dressing today prior to discharge, but nursing had changed the VAC dressing yesterday. the plan is for wound VAC changes on Mondays and at the wound healing center. dressing is intact with good seal noted at 150mmHg low continuous suction. Pt switched over to the home VAC at this time. Reviewed the alarms, etc. with patient. patient aware she needs to take a dressing and canister with her to each wound center appt. pt did write everything in a notebook to remember. Pt denies questions at this time.
--- NOTE | 2021-10-23 10:21 | PN.CARD_ITS ---
Subjective Subjective Pt seen and examined today. She is feeling better, No CP or SOB. She does have a WHITLEY today. Feels that this is from lack of sleep. Objective Data Vital Signs: Vital Signs Temp Pulse Resp BP Pulse Ox O2 Del Method O2 Flow Rate 97.8 F 98 16 133/66 H 100 Room Air 2 10/23/21 09:42 10/23/21 09:42 10/23/21 09:42 10/23/21 09:42 10/23/21 09:42 10/23/21 09:42 10/21/21 16:35 Oxygen Flow Rate (L/min) 2 Oxygen Delivery Method Room Air Weight: 145 lb 1.027 oz Body Mass Index (BMI) 28.5 Intake & Output: Intake and Output for Last 24 Hours 10/21/21 10/22/21 10/23/21 23:59 23:59 23:59 Intake Total 1439.33 / 1439.33 1080 / 1080 Output Total 650 / 650 Balance 789.33 / 789.33 1080 / 1080 Lab / Micro Data Result Diagrams: 10/23/21 05:01 10/23/21 05:01 Labs: Laboratory Results - last 24 hr 10/20/21 09:41: Diff Path Review Reviewed 10/22/21 05:35: Diff Path Review Reviewed 10/23/21 05:01: WBC 11.7 H, RBC 3.59 L, Hgb 11.0 L, Hct 33.6 L, MCV 93.6, MCH 30.6, MCHC 32.7, RDW Std Deviation 44.5 H, RDW Coeff of Amy 12.9, Plt Count 261, MPV 10.5, Immature Gran % (Auto) 0.900, Neut % (Auto) 64.1, Lymph % (Auto) 26.1, [place] % (Auto) 8.4, Eos % (Auto) 0.3, Baso % (Auto) 0.2, Absolute Neuts (auto) 7.5, Absolute Lymphs (auto) 3.04, Nucleated RBC % 0 10/23/21 05:01: Sodium 133 L, Potassium 3.8, Chloride 103, Carbon Dioxide 22.0, Anion Gap 8, BUN 23 H, Creatinine 0.65, Estim Creat Clear Calc 89.63, Est GFR (MDRD) Af Amer 117, Est GFR (MDRD) Non-Af 97, BUN/Creatinine Ratio 35.3 H, Glucose 105, Calcium 7.9 L, Total Bilirubin 0.30, AST 43 H, ALT 71 H, Alkaline Phosphatase 81, Total Protein 5.7 L, Albumin 2.7 L, Globulin 3.0, Albumin/Globulin Ratio 0.9 Micro: Microbiology 10/21/21 09:05 Urine, Clean Catch Urine Culture - Final Culture exhibits no growth. 10/20/21 12:45 Blood Culture (Wb) - Anticubital Right Blood Culture - Preliminary No growth in 48 hours. 10/20/21 12:30 Blood Culture (Wb) - Anticubital Left Blood Culture - Preliminary No growth in 48 hours. 10/20/21 12:05 Wound - Leg, Left Gram Stain - Final 10/20/21 12:05 Wound - Leg, Left Wound Culture - Final No growth aerobically. Cardiology Labs/Tests 10/23/21 05:01: WBC 11.7 H, RBC 3.59 L, Hgb 11.0 L, Hct 33.6 L, MCV 93.6, MCH 30.6, MCHC 32.7, Plt Count 261, MPV 10.5, Immature Gran % (Auto) 0.900, Neut % (Auto) 64.1, Lymph % (Auto) 26.1, [place] % (Auto) 8.4, Eos % (Auto) 0.3, Baso % (Auto) 0.2, Absolute Neuts (auto) 7.5, Nucleated RBC % 0 10/23/21 05:01: Sodium 133 L, Potassium 3.8, Chloride 103, Carbon Dioxide 22.0, Anion Gap 8, BUN 23 H, Creatinine 0.65, Est GFR (MDRD) Af Amer 117, Est GFR (MDRD) Non-Af 97, BUN/Creatinine Ratio 35.3 H, Glucose 105, Calcium 7.9 L, Total Bilirubin 0.30 Rhythm: SR Physical Exam Const alert, oriented x3, no apparent distress and healthy appearing HEENT normocephalic, head/scalp atraumatic, hearing grossly normal bilaterally, external ears normal, external nose normal and moist oral mucous membranes Eyes PERRL, EOMs intact bilaterally, conjunctivae normal and no scleral icterus Neck no lymphadenopathy, supple and no JVD Resp normal respiratory effort and clear to auscultation bilaterally Cardio regular rate, regular rhythm, S1 normal heart sound, S2 normal heart sound, no murmurs, no rub, no gallops, no clicks, no JVD and peripheral pulses 2+ throughout GI normal to inspection, nondistended, normoactive bowel sounds, soft to palpation, non-tender and non-distended Extremity normal to inspection, normal capillary refill, no clubbing, cyanosis or edema and no pedal edema Extremity Narrative: would vac noted to left loer extremity. Neuro oriented x3, CN's II-XII intact bilaterally, moves all extremities and no focal motor deficits Psych cooperative and affect normal Assessment & Plan Assessment/Plan (1) NSTEMI, initial episode of care: (2) Atherosclerotic heart disease of [place] coronary artery without angina pectoris: (3) Current chronic use of systemic steroids: (4) Takotsubo cardiomyopathy: PLAN: * Patient does have an LAD that appears to be totally occluded that is chronic in nature. Would like to treat with aggressive medical management with carvedilol, aspirin, clopidogrel. She does not want to take a statin but is agreeable to taking Zetia. * Patient's ejection fraction is noted to be 30%. We will treat with aggressive medical management with carvedilol and Entresto. On an outpatient basis we will continue to titrate medications as tolerated. Would like to repeat an echocardiogram in 6 to 12 weeks to reevaluate LV function. If her ejection f raction does not improve she should be considered for a prophylactic ICD. As her ejection fraction is low will refer patient for a LifeVest at discharge. * Ideally will refer patient to cardiac rehab on an outpatient basis. Charges/Coding Visit Charges Inpatient E&M: 54398 Subs Hosp L2
[2021-10-23] MEDS: Rizatriptan Benzoate 10 MG Tablet PO (11:19)
--- NOTE | 2021-10-23 13:07 | DS.PCM_ITS ---
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: Reason for Consult:: Left lower leg wound 10/21/21 11:56 Consult: Cardiology Routine Consulting Provider: Meng Davison Reason for Consult: stemi EMERGENT Consult: No MD Notified: Yes Date Notified: 10/21/21 Time Notified: 11:56 Method of Notification: Verbal Reason For Visit: CHEST PAIN Diagnosis Discharge Diagnosis (1) NSTEMI, initial episode of care: Status: Acute Code(s): I21.4 - Non-ST elevation (NSTEMI) myocardial infarction (2) Atherosclerotic heart disease of [place] coronary artery without angina pectoris: Status: Acute Code(s): I25.10 - Atherosclerotic heart disease of [place] coronary artery without angina pectoris (3) Current chronic use of systemic steroids: Status: Acute Code(s): 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 Acute chest pain/non-STEMI 2. Ischemic cardiomyopathy/Takotsubo cardiomyopathy, 25-30% 2. Hyperlipidemia 3. Ruffin's disease 4. Hypothyroidism 5. Acute on chronic leg wound, status post recent wound debridement, on wound VAC 6. H/o migraines 7. Fibromyalgia 8. Raynaud's disease 9. GERD Medications at Discharge Home Medications calcium carbonate 500 mg calcium (1,250 mg) chewable tablet 1,000 mg PO BID 09/22/21 cholecalciferol (vitamin D3) 25 mcg (1,000 unit) chewable tablet 25 mcg PO BID 09/22/21 dexamethasone 0.5 mg tablet 0.5 mg PO DAILY 09/22/21 diclofenac sodium 1 % topical gel 1 ea topical PRN PRN Pain 09/22/21 estradiol 1 mg tablet 1 mg PO DAILY 09/22/21 famotidine 20 mg tablet 20 mg PO DAILY 09/22/21 fludrocortisone 0.1 mg tablet 0.1 mg PO DAILY 09/22/21 levothyroxine 125 mcg capsule 125 mcg PO MOTUWETHFRSA 09/22/21 loperamide 2 mg capsule 2 mg PO Q4H PRN Diarrhea 09/22/21 loratadine 10 mg tablet 10 mg PO DAILY PRN Allergy Symptoms 09/22/21 milnacipran 50 mg tablet (Savella) 50 mg PO DAILY 09/22/21 omeprazole 20 mg tablet,delayed release 20 mg PO DAILY 09/22/21 ondansetron HCl 4 mg tablet 4 mg PO PRN PRN Nausea 09/22/21 sumatriptan succinate 100 mg tablet (Imitrex) 100 mg PO PRN PRN Migraine Headache 09/22/21 timolol 0.5 % eye drops 1 drp EACH EYE DAILY 09/22/21 vitamin B complex 1 tab PO DAILY 09/22/21 acetaminophen 300 mg-codeine 30 mg tablet 1 tab PO BID 10/02/21 aspirin 81 mg tablet,delayed release 81 mg PO DAILY@0800 30 days #30 tabs atorvastatin 80 mg tablet 80 mg PO QHS 30 days #30 tabs 10/22/21 carvedilol 6.25 mg tablet 6.25 mg PO BID 30 days #60 tabs 10/22/21 clopidogrel 75 mg tablet 75 mg PO DAILY 30 days #30 tabs 10/22/21 ezetimibe 10 mg tablet 10 mg PO DAILY 30 days #30 tabs 10/22/21 sacubitril 24 mg-valsartan 26 mg tablet (Entresto) 1 ea PO BID 30 days #60 tabs 10/22/21 Hospital Course Operations None Procedures 2-D Echocardiogram and Cardiac catheterization Summary of Care Provided Minutes Spent on Discharge: 45 Hospital Course: 66-year-old female with past medical history of Favio's disease, GERD who comes in with sudden onset of chest pain, that started when she woke up. It was described as substernal, achy, associated with nausea and vomiting and diaphoresis as well as shortness of breath. She called the EMS. Her admitting vitals were stable. Troponins were elevated. EKG shows normal sinus rhythm, short AR infarct, concern for probable anterior infarct. Cardiology was consulted. She underwent emergent cardiac catheterization that found a chronic total occlusion of her LAD. 2D echo shows EF of 30%. Patient was initially managed transiently in the ICU with aggressive medical management with aspirin, Plavix, Coreg, Entresto. She was discharged with a LifeVest. She will follow- up with cardiology and also with cardiac rehab in the outpatient. Patient was given referral to endocrinology and primary care doctor as she was new in town. Patient has several questions with regards to her medications, if physical activity, food. All these were answered. Nutrition gave her educational materials. Physical Exam Narrative Physical exam: General: Alert, Oriented x3, Cooperative, looks improved HEENT: Atraumatic Oral: Moist Mucosa Neck: Supple Lungs: Clear to auscultation Cardiovascular: HS I+II, regular, no murmurs Abdomen: Bowel Sounds Present, Soft, Non Tender Extremities: No edema Skin: No rashes, No breakdown Neurological: Grossly intact Psych/Mental Status: Appropriate Weight / BMI Weight Weight: 65.8 kg Body Mass Index (BMI) 28.5 ABG / Lab / Microbiology Data Result Diagrams: 10/23/21 05:01 10/23/21 05:01 Laboratory: Laboratory Results - last 24 hr 10/22/21 05:35: Diff Path Review Reviewed 10/23/21 05:01: WBC 11.7 H, RBC 3.59 L, Hgb 11.0 L, Hct 33.6 L, MCV 93.6, MCH 30.6, MCHC 32.7, RDW Std Deviation 44.5 H, RDW Coeff of Amy 12.9, Plt Count 261, MPV 10.5, Immature Gran % (Auto) 0.900, Neut % (Auto) 64.1, Lymph % (Auto) 26.1, Armstrong % (Auto) 8.4, Eos % (Auto) 0.3, Baso % (Auto) 0.2, Absolute Neuts (auto) 7.5, Absolute Lymphs (auto) 3.04, Nucleated RBC % 0 10/23/21 05:01: Sodium 133 L, Potassium 3.8, Chloride 103, Carbon Dioxide 22.0, Anion Gap 8, BUN 23 H, Creatinine 0.65, Estim Creat Clear Calc 89.63, Est GFR (MDRD) Af Amer 117, Est GFR (MDRD) Non-Af 97, BUN/Creatinine Ratio 35.3 H, Glucose 105, Calcium 7.9 L, Total Bilirubin 0.30, AST 43 H, ALT 71 H, Alkaline Phosphatase 81, Total Protein 5.7 L, Albumin 2.7 L, Globulin 3.0, Albumin/Globulin Ratio 0.9 Microbiology: Microbiology 10/21/21 09:05 Urine, Clean Catch Urine Culture - Final Culture exhibits no growth. 10/20/21 12:45 Blood Culture (Wb) - Anticubital Right Blood Culture - Preliminary No growth in 48 hours. 10/20/21 12:30 Blood Culture (Wb) - Anticubital Left Blood Culture - Preliminary No growth in 48 hours. 10/20/21 12:05 Wound - Leg, Left Gram Stain - Final 10/20/21 12:05 Wound - Leg, Left Wound Culture - Final No growth aerobically. 10/20/21 12:42 Nasal Secretion SARS-CoV-2 & FLU Antigen (Rapid) - Final D/C Instructions Discharge Diet: Low fat / Low cholesterol and 2000 mg Sodium Diet Meaningful Use Info Meaningful Use Diagnoses (Choose all that apply): None applicable Discharge Plan Admission Admit Date/Time: 10/20/21 17:13 Primary Reason for Your Visit: Acute NSTEMI Attending Provider: Brisa Rawls Primary Care Provider: Care PhysicianAnai Primary Consulting Providers: Meng Davison Instructions Additional Instructions / Restrictions: Continue to take all your medications as prescribed. Follow-up with your primary care doctor and with cardiology within 2 weeks Follow-up with cardiac rehab Discharge Orders/Prescriptions Prescriptions: New atorvastatin 80 mg Tablet 80 mg PO QHS 30 Days Qty: 30 0RF carvedilol 6.25 mg Tablet 6.25 mg PO BID 30 Days Qty: 60 0RF clopidogrel 75 mg Tablet 75 mg PO DAILY 30 Days Qty: 30 0RF aspirin 81 mg Tablet,Delayed Release (Dr/Ec) 81 mg PO DAILY@0800 30 Days Qty: 30 0RF ezetimibe 10 mg Tablet 10 mg PO DAILY 30 Days Qty: 30 0RF Entresto 24-26 mg Tablet 1 ea PO BID 30 Days Qty: 60 0RF Continued loperamide 2 mg Capsule 2 mg PO Q4H PRN (Reason: Diarrhea) Rx Instructions: administer after each loose stool until symptoms controlled; do not exceed 8 mg per 24 hrs sumatriptan succinate [Imitrex] 100 mg Tablet 100 mg PO PRN PRN (Reason: Migraine Headache) Rx Instructions: do not exceed 2 doses per 24 hrs ondansetron HCl 4 mg Tablet 4 mg PO PRN PRN (Reason: Nausea) famotidine 20 mg Tablet 20 mg PO DAILY estradiol 1 mg Tablet 1 mg PO DAILY timolol 0.5 % Drops 1 drp EACH EYE DAILY vitamin B complex Tablet 1 tab PO DAILY calcium carbonate 500 mg calcium (1,250 mg) Tablet,Chewable 1,000 mg PO BID dexamethasone 0.5 mg Tablet 0.5 mg PO DAILY fludrocortisone 0.1 mg Tablet 0.1 mg PO DAILY loratadine 10 mg Tablet 10 mg PO DAILY PRN (Reason: Allergy Symptoms) diclofenac sodium 1 % Gel 1 ea TOPICAL PRN PRN (Reason: Pain) omeprazole 20 mg Tablet,Delayed Release (Dr/Ec) 20 mg PO DAILY Savella 50 mg Tablet 50 mg PO DAILY cholecalciferol (vitamin D3) 25 mcg (1,000 unit) Tablet,Chewable 25 mcg PO BID levothyroxine 125 mcg Capsule 125 mcg PO MOTUWETHFRSA acetaminophen-codeine 300-30 mg Tablet 1 tab PO BID Discontinued potassium chloride [Klor-Con] 20 mEq Packet 30 meq PO DAILY Referrals / Follow Up: Anette Melgar MD [Med Staff - Active Staff] - 10/27/21 8:30 am David Rasheed MD [Med Staff - Courtesy Staff] - 11/02/21 2:30 pm Center,Wound [Non-Staff] - 10/26/21 10:30 am Disposition Disposition (needs filled in before D/C Order can be placed): Home, Self Care Charges/Coding Visit Charges Inpatient E&M: 37686 Disch Hosp
== END 2021-10-23 16:47 | disposition home or self-care (01) | DRG 281 ==
LOC: ED 12:40 → PCU 12:57 → ICU 15:53 → PCU 10-21 14:28 → ICU 10-22 08:25 → PCU 10-22 08:25
PROVIDERS: Hospitalist; Internal Medicine Interventional Cardiology; Admitting Provider Internal Medicine; Emergency Provider Emergency Medicine; Visit Provider Internal Medicine
DX: I21.4 Non-ST elevation (NSTEMI) myocardial infarction (principal); E27.1 Primary adrenocortical insufficiency; E87.2 Acidosis; I51.81 Takotsubo syndrome; G43.909 Migraine, unspecified, not intractable, without status migrainosus; S81.802A Unspecified open wound, left lower leg, initial encounter; M79.7 Fibromyalgia; I73.00 Raynaud's syndrome without gangrene; I25.10 Atherosclerotic heart disease of native coronary artery without angina pectoris; E78.5 Hyperlipidemia, unspecified; E03.9 Hypothyroidism, unspecified; I25.5 Ischemic cardiomyopathy; K21.9 Gastro-esophageal reflux disease without esophagitis; X58.XXXA Exposure to other specified factors, initial encounter; Z79.02 Long term (current) use of antithrombotics/antiplatelets; Z79.52 Long term (current) use of systemic steroids; Z79.82 Long term (current) use of aspirin; Z79.899 Other long term (current) drug therapy
CPT/HCPCS: 36415; 71045; 80048; 80053; 80061; 80076; 81001; 82009; 83036; 83605; 84484; 85025; 85379; 85610; 85730; 87040; 87070; 87086; 87205; 87428; 87640; 92928; 93005; 93306; 93454; 99152; 99153; 99285; J7030; J7040; Q9967; A4216; C1725; C1760; C1769; C1887; C9600; J1940

== ENCOUNTER 2021-10-28 11:15 | Emergency (ER) | payer MEDICARE, SELFPAY ==
[2021-10-28 11:17] VITALS: BP 125/67; PULSE 114; RESP 18; TEMP 36.1; O2SAT 94; BMI 27.9
[2021-10-28 11:40] VITALS: BP 100/74
--- NOTE | 2021-10-28 11:50 | EX.ED.DYSGE1 ---
HPI History of Present Illness Chief Complaint: Hypotension Informant: patient Onset/Context/Timing Onset: Days Context: Gradual Onset Timing: Intermittent Current Severity: Mild Maximum Severity: Mild Narrative Narrative: 66-year-old female history of recent VA with blockage of detail unable to stent. She is on Plavix. She also has a history of autoimmune disease and Wells's disease. Since the heart attack about a week ago she has been on carvedilol twice a day. Last several days she has felt sluggish and just tired. Her pressures have been running 70s over 50s and today she was 82/53. She did not take her blood pressure medication last night or today due to low blood pressure. She denies any vomiting or diarrhea. No melena. No dysuria. No fever. Prior similar symptoms: No Recent Illness/Hospitalization: Yes PFSH [facility] Medical History Addisons disease Alcohol use Arthritis Atherosclerotic heart disease of [place] coronary artery without angina pectoris Bladder disease Easy bruising Fibromyalgia History of edema History of left heart catheterization (LHC) History of steroid therapy Hx of gastroesophageal reflux (GERD) Hypothyroidism Leg cramps Migraines Non-smoker Open wound Raynauds disease Takotsubo cardiomyopathy Home Medications calcium carbonate 500 mg calcium (1,250 mg) chewable tablet 1,000 mg PO BID 09/22/21 [History Last Taken Unknown] cholecalciferol (vitamin D3) 25 mcg (1,000 unit) chewable tablet 25 mcg PO BID 09/22/21 [History Last Taken Unknown] dexamethasone 0.5 mg tablet 0.5 mg PO DAILY 09/22/21 [History Last Taken 10/07/21] diclofenac sodium 1 % topical gel 1 ea topical PRN PRN Pain 09/22/21 [History Last Taken Unknown] estradiol 1 mg tablet 1 mg PO DAILY 09/22/21 [History Last Taken Unknown] famotidine 20 mg tablet 20 mg PO DAILY 09/22/21 [History Last Taken 10/07/21] fludrocortisone 0.1 mg tablet 0.1 mg PO DAILY 09/22/21 [History Last Taken 10/07/21] levothyroxine 125 mcg capsule 125 mcg PO MOTUWETHFRSA 09/22/21 [History Last Taken 10/07/21] loperamide 2 mg capsule 2 mg PO Q4H PRN Diarrhea 09/22/21 [History Last Taken Unknown] loratadine 10 mg tablet 10 mg PO DAILY PRN Allergy Symptoms 09/22/21 [History Last Taken Unknown] milnacipran 50 mg tablet (Savella) 50 mg PO DAILY 09/22/21 [History Last Taken 10/07/21] omeprazole 20 mg tablet,delayed release 20 mg PO DAILY 09/22/21 [History Last Taken 10/07/21] ondansetron HCl 4 mg tablet 4 mg PO PRN PRN Nausea 09/22/21 [History Last Taken Unknown] sumatriptan succinate 100 mg tablet (Imitrex) 100 mg PO PRN PRN Migraine Headache 09/22/21 [History Last Taken Unknown] timolol 0.5 % eye drops 1 drp EACH EYE DAILY 09/22/21 [History Last Taken Unknown] vitamin B complex 1 tab PO DAILY 09/22/21 [History Last Taken Unknown] aspirin 81 mg tablet,delayed release 81 mg PO DAILY@0800 30 days #30 tabs 10/22/21 [Rx Last Taken Unknown] atorvastatin 80 mg tablet 80 mg PO QHS 30 days #30 tabs 10/22/21 [Rx Last Taken Unknown] carvedilol 6.25 mg tablet 6.25 mg PO BID 30 days #60 tabs 10/22/21 [Rx Last Taken Unknown] clopidogrel 75 mg tablet 75 mg PO DAILY 30 days #30 tabs 10/22/21 [Rx Last Taken Unknown] ezetimibe 10 mg tablet 10 mg PO DAILY 30 days #30 tabs 10/22/21 [Rx Last Taken Unknown] sacubitril 24 mg-valsartan 26 mg tablet (Entresto) 1 ea PO BID 30 days #60 tabs 10/22/21 [Rx Last Taken Unknown] ascorbate calcium (vitamin C) 500 mg tablet 500 mg PO DAILY 10/27/21 [History Last Taken Unknown] fluconazole 150 mg tablet (Diflucan) 150 mg PO ONCE #1 TAB 10/27/21 [Rx Last Taken Unknown] onabotulinumtoxinA 100 unit solution for injection (Botox) 200 unit IM ONCE 10/27/21 [History Last Taken Unknown] tretinoin 0.025 % topical cream 1 applic topical QHS #20 grams 10/27/21 [Rx Last Taken Unknown] Allergy/AdvReac Type Severity Reaction Status Date / Time adhesive Allergy Intermediate Rash Verified 10/28/21 11:16 amoxicillin [From Trimox] Allergy Rash Verified 10/28/21 11:16 cyclobenzaprine Allergy Rash Verified 10/28/21 11:16 [From Flexeril] erythromycin base Allergy Vomiting Verified 10/28/21 11:16 [From Luis Fernando-Tab] Iodinated Contrast Media Allergy Rash Verified 10/28/21 11:16 Sulfa (Sulfonamide Allergy Rash Verified 10/28/21 11:16 Antibiotics) bupropion [From Budeprion SR] AdvReac Other Verified 10/28/21 11:16 clonazepam AdvReac Other Verified 10/28/21 11:16 divalproex sodium AdvReac Other Verified 10/28/21 11:16 [From Depakote] duloxetine [From Cymbalta] AdvReac Other Verified 10/28/21 11:16 meperidine [From Demerol] AdvReac Other Verified 10/28/21 11:16 methylprednisolone AdvReac Other Verified 10/28/21 11:16 [From Medrol] Family History Mother Heart disease ALS (amyotrophic lateral sclerosis) Father Heart disease Surgical History History of laparoscopic cholecystectomy Hx of appendectomy Hx of bilateral cataract extraction Hx of colonoscopy Hx of tonsillectomy Hx of total knee arthroplasty Hx of vaginal hysterectomy Social History household members: spouse current occupational status: retired 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 Review of Systems ROS Unobtainable: Denies due to encephalopathy Constitutional Constitutional ED: Denies chills or fever(s) Eyes Eyes: Denies blurry vision ENT ENT ED: Denies ear pain Cardiovascular Cardiovascular: Denies chest pain Respiratory/Chest Respiratory/Chest: Denies cough or dyspnea Gastrointestinal Gastrointestinal: Denies abdominal pain Genitourinary Genitourinary ED: Denies dysuria or hematuria Musculoskeletal Musculoskeletal: Denies arthralgias Integumentary Denies abscess Neurologic Neurologic: Denies headache(s) Psychiatric Psychiatric: Denies anxiety or depression Hematologic/Lymphatic Hematologic/Lymphatic: Reports none Allergic/Immunologic Allergic/Immunologic ED: Denies mouth swelling or tongue swelling EXAM Physical Exam Narrative Exam Narrative: 61-year-old female no acute distress. Current blood pressure is 112/67. She does not look septic or toxic. She has no distress. She sitting upright in bed. For the exam unremarkable atraumatic. Moist Riis members. Neck nontender no JVD. Lungs clear to auscultation. Heart regular rhythm rate about 100 no murmur. Abdomen soft nontender. Moving all 4 extremities. She has a dressing on her left lower extremity from a fall and a dressing on her right forearm from a skin tear. Neurologically she is awake alert with no focal motor deficits. Const Vital Signs: 10/28/21 11:17 10/28/21 11:31 10/28/21 11:40 Temperature 97.0 F L Temperature Source Temporal Pulse Rate 114 H Respiratory Rate 18 Respiratory Effort Normal Respiratory Pattern Normal Blood Pressure 125/67 H 100/74 Blood Pressure Mean 86 82 Pulse Ox 94 Oxygen Delivery Method Room Air 10/28/21 12:15 Temperature Temperature Source Pulse Rate Respiratory Rate Respiratory Effort Respiratory Pattern Blood Pressure Blood Pressure Mean Pulse Ox 96 Oxygen Delivery Method Room Air Positive well nourished and well developed; Negative for cachectic, contractures or unkempt General Appearance ED: well developed and NAD; Negative for unkempt, cachectic, contractures, cyanotic or diaphoretic Nutritional Appearance: Negative for cachectic HEENT Reports moist mucous membranes; Denies dry mucous membranes Negative for trauma or tenderness Mouth ED: No dry mucous membranes Mouth: No dry mucous membranes Eyes PERRL and EOMs intact bilaterally General Eye ED: Negative for pale conjunctiva or scleral icterus Neck no lymphadenopathy, supple and no JVD General: Negative for tenderness Lymph Lymphatic: Negative for other Chest Wall inspection of chest normal and palpation of chest normal Chest: Negative for other Resp normal respiratory effort and clear to auscultation bilaterally Effort and Inspection: Negative for retractions, pain with movement or other Auscultation: Negative for rales or rhonchi Cardio regular rate, regular rhythm, S1 normal heart sound, S2 normal heart sound and no murmurs GI normal to inspection, nondistended, normoactive bowel sounds, non-tender, non-distended and no masses Inspection: Negative for abdominal distention Auscultation: normoactive bowel sounds Palpation: soft; Negative for tender Back/Spine no CVA tenderness General Back: Negative for CVA tenderness Cervical Spine: Negative for cervical spine tenderness Thoracic Spine / Upper Back: Negative for thoracic spinal tenderness Lumbar Spine / Lower Back: Negative for lumbar spinal tenderness Extremity normal to inspection Extremity Narrative: Dressing on left lower extremity. Ulcer right forearm from a skin tear. General Extremety ED: Negative for edema General Extremity: Negative for edema Neuro oriented x3 and CN's II-XII intact bilaterally Sensorium / Orientation: alert; Negative for orientation impaired, lethargic or stuporous Psych mental status grossly normal Appearance: Negative for unkempt Attitude: No agitated Mood & Affect: Negative for depressed, anxious or tearful Skin no rashes or lesions noted and No no wounds Lesions: No lesion noted Rashes: No rashes noted Trauma: abrasion Wounds: wounds noted MDM MDM MDM Narrative Medical decision making narrative: 70-year-old female status post VA a week ago on carvedilol who has had episodes of hypotension last several days. Exam benign. Evaluate for causes of hypotension. Infection, anemia, dehydration which clinically and physically I do not bulk picker any signs of those. Dysrhythmia versus other etiologies. There is no signs of any type of infection on exam. Repeat exam patient is doing well 1:15 PM. We went over all of her test results, chest x-ray and EKG. Her hypotension may be secondary to the carvedilol. I will have her hold her blood pressure medication. Do blood pressure checks. And follow-up with her cardiology appointment. Return if she is feeling worse. Lab Data Attestation: I reviewed the patient's lab results. Lab results narrative: CBC shows white count 12.6. H&H of 13.2 and 40. Electrolytes sodium 135 gap is 7 normal BUN and creatinine at 13 and 0.8. Glucose 164. Lactic acid slightly elevated 2.6. Chest x-ray no acute abnormality. I also reviewed the patient's recent ejection fraction it was only 25 to 30%. Combination of that with the beta-nicole may have caused her hypotension. We will hold the beta-nicole. Labs: Laboratory Results - last 24 hr 10/28/21 10/28/21 10/28/21 12:01 12:01 12:01 WBC 12.6 H RBC 4.22 Hgb 13.2 Hct 40.9 MCV 96.9 MCH 31.3 MCHC 32.3 RDW Std Deviation 47.8 H RDW Coeff of Amy 13.3 Plt Count 359 MPV 9.8 Immature Gran % (Auto) 1.000 H Neut % (Auto) 81.6 H Lymph % (Auto) 9.9 L [place] % (Auto) 6.5 Eos % (Auto) 0.6 Baso % (Auto) 0.4 Absolute Neuts (auto) 10.3 H Absolute Lymphs (auto) 1.25 Nucleated RBC % 0 Sodium 135 L Potassium 4.7 Chloride 102 Carbon Dioxide 26.0 Anion Gap 7 BUN 13 Creatinine 0.84 Estim Creat Clear Calc 47.96 Est GFR (MDRD) Af Amer 88 Est GFR (MDRD) Non-Af 73 BUN/Creatinine Ratio 15.6 Glucose 164 H Lactic Acid 2.6 H* Calcium 9.9 Radiography Chest X-Ray - ED: 1 View, Read by ED Physician, Normal, Heart, Lungs, Mediastinum, Bony Structures, No Acute Disease and Chronic Changes Diagnostic Testing: Clinical Impression(s) from Imaging Studies Chest X-Ray 10/28/21 12:28 IMPRESSION: Normal x-ray examination of the chest. Electronically Signed: Romaine Whitehead MD at 12:41 EDT Reading Location ID and State: [address] [place] [address] , Service support , Chest x-ray, portable, single view interpreted by myself and radiologist shows no acute abnormality. Normal cardiac silhouette. No infiltrate. Rhythm Strip Rhythm Strip: Sinus Tach Rate: 109 Ectopy: None EKG Initial EKG: Attestation: I personally reviewed and interpreted this EKG as follows: Interpretation: Sinus Rhythm, Sinus Arrythmia and S-T Elevation Comments: Sinus tachycardia rate of 109. There is some ST elevation in V2 V3 with the patient's history of a recent VA. When compared to a prior EKG it was no significant change. Prior EKG tracings: available for review Prior: Unchanged Discharge Plan Triage Chief Complaint: Hypotension ED Provider: Vaibhav Cleary Dx/Rx/DC Orders Clinical Impression: Acute hypotension, History of VA (myocardial infarction), Medication reaction Instructions: ED Low Blood Pressure, All Causes Prescriptions: No Action ascorbate calcium (vitamin C) 500 mg tablet 500 mg PO DAILY Botox 100 unit recon soln 200 unit IM ONCE Rx Instructions: for migraines tretinoin 0.025 % cream 1 applic topical QHS Qty: 20 0RF fluconazole [Diflucan] 150 mg tablet 150 mg PO ONCE Qty: 1 0RF loperamide 2 mg Capsule 2 mg PO Q4H PRN (Reason: Diarrhea) Rx Instructions: administer after each loose stool until symptoms controlled; do not exceed 8 mg per 24 hrs sumatriptan succinate [Imitrex] 100 mg Tablet 100 mg PO PRN PRN (Reason: Migraine Headache) Rx Instructions: do not exceed 2 doses per 24 hrs ondansetron HCl 4 mg Tablet 4 mg PO PRN PRN (Reason: Nausea) famotidine 20 mg Tablet 20 mg PO DAILY estradiol 1 mg Tablet 1 mg PO DAILY timolol 0.5 % Drops 1 drp EACH EYE DAILY vitamin B complex Tablet 1 tab PO DAILY calcium carbonate 500 mg calcium (1,250 mg) Tablet,Chewable 1,000 mg PO BID dexamethasone 0.5 mg Tablet 0.5 mg PO DAILY fludrocortisone 0.1 mg Tablet 0.1 mg PO DAILY loratadine 10 mg Tablet 10 mg PO DAILY PRN (Reason: Allergy Symptoms) diclofenac sodium 1 % Gel 1 ea TOPICAL PRN PRN (Reason: Pain) omeprazole 20 mg Tablet,Delayed Release (Dr/Ec) 20 mg PO DAILY Savella 50 mg Tablet 50 mg PO DAILY cholecalciferol (vitamin D3) 25 mcg (1,000 unit) Tablet,Chewable 25 mcg PO BID levothyroxine 125 mcg Capsule 125 mcg PO MOTUWETHFRSA atorvastatin 80 mg Tablet 80 mg PO QHS 30 Days Qty: 30 0RF carvedilol 6.25 mg Tablet 6.25 mg PO BID 30 Days Qty: 60 0RF clopidogrel 75 mg Tablet 75 mg PO DAILY 30 Days Qty: 30 0RF aspirin 81 mg Tablet,Delayed Release (Dr/Ec) 81 mg PO DAILY@0800 30 Days Qty: 30 0RF ezetimibe 10 mg Tablet 10 mg PO DAILY 30 Days Qty: 30 0RF Entresto 24-26 mg Tablet 1 ea PO BID 30 Days Qty: 60 0RF Primary Care Provider: Anette Melgar Referrals: Anette Melgar MD [Primary Care Provider] - 3-5 Days Activity Restrictions/Additional Instructions: Plenty of fluids and rest. Check your blood pressure daily. Hold your blood pressure medication it seems like that may have been causing your low blood pressures since there is no other source today. Follow-up with your cardiology appointment as scheduled. Return if feeling worse. Disposition Disposition: Home, Self Care
[2021-10-28 12:10] LABS: Absolute Lymphocyte Count 1.25 X10^3/uL (0.83-4.51); Absolute Neutrophil Count 10.3 X10^3/uL (2.0-7.7); Basophil# 0.05 X10^3/uL; Basophil% 0.4 % (0-1); Eosinophil# 0.08 X10^3/uL; Eosinophils% 0.6 % (0-5); Hematocrit 40.9 % (37-47); Hemoglobin 13.2 g/dL (12.0-15.0); Lymphocyte # 1.25 X10^3/ul (0.83-4.51); Lymphocyte % 9.9 % (19-41); Mean Corp Hgb Conc 32.3 g/dL (32-36); Mean Corpuscular Hgb 31.3 pg (27.0-32.0); Mean Corpuscular Volume 96.9 fL (81-99); Mean Platelet Vol. 9.8 fl (6.2-12.0); Monocyte# 0.82 X10^3/uL; Monocyte% 6.5 % (0-10); NRBC Flagged by Analyzer 0 % (0-5); Neutrophil # 10.29 X10^3/uL (2.7-7.7); Neutrophil % 81.6 % (47-70); Platelet Count 359 K/mm3 (150-450); RBC Distribution Width CV 13.3 % (11.6-14.6); RBC Distribution Width SD 47.8 fl (35.1-43.9); Red Blood Count 4.22 M/mm3 (4.2-5.4); White Blood Count 12.6 K/mm3 (4.4-11.0)
[2021-10-28 12:15] VITALS: O2SAT 96
--- NOTE | 2021-10-28 12:28 | RAD_ITS ---
STUDY: X-RAY CHEST REASON FOR EXAM: Female, 66 years old. Atypical chest pain TECHNIQUE: Single AP portable view of the chest. COMPARISON: 10/20/2021 FINDINGS: EKG leads overlie the chest The lungs are clear and expanded. There is no demonstrated pleural abnormality. Normal size heart. Normal mediastinum and catrachito. Normal visualized pulmonary arteries. Normal visualized aortic arch and descending thoracic aorta. Normal visualized thoracic spine. Normal visualized ribs, clavicles, and shoulders. There is no demonstrated abnormality of the visualized soft tissue structures of the upper abdomen. RAD/Chest 1 View (Portable) IMPRESSION: Normal x-ray examination of the chest. Electronically Signed: Romaine Whitehead MD at 12:41 EDT ,
[2021-10-28 12:30] LABS: Anion Gap 7 (5-15); BUN 13 mg/dL (7-18); BUN/Creat Ratio 15.6 RATIO (10-20); Calcium,Total 9.9 mg/dL (8.5-10.1); Chloride 102 mmol/L (98-107); Creatinine, Serum 0.84 mg/dL (0.55-1.02); EST Glomerular Filtration Rate 73 mL/min (>60); Est Glom Filt Rate - Afr Amer 88 mL/min (>60); Estimated Creatinine Clearance 47.96 ml/min; Glucose 164 mg/dL (74-106); Potassium 4.7 mmol/L (3.5-5.1); Sodium Level 135 mmol/L (136-145)
[2021-10-28 12:38] LABS: Lactic Acid 2.6 mmol/L (0.4-1.9)
[2021-10-28 13:33] VITALS: BP 112/78; PULSE 101
[2021-10-28 16:06] LABS: Reflex Lactate? Y
== END 2021-10-28 13:42 | disposition home or self-care (01) ==
PROVIDERS: Emergency Provider Emergency Medicine; PCP Internal Medicine; Visit Provider Emergency Medicine
DX: I95.2 Hypotension due to drugs (principal); E27.1 Primary adrenocortical insufficiency; T44.7X5A Adverse effect of beta-adrenoreceptor antagonists, initial encounter; E03.9 Hypothyroidism, unspecified; I25.10 Atherosclerotic heart disease of native coronary artery without angina pectoris; I25.2 Old myocardial infarction; K21.9 Gastro-esophageal reflux disease without esophagitis; M79.7 Fibromyalgia; Z79.02 Long term (current) use of antithrombotics/antiplatelets; Z79.899 Other long term (current) drug therapy
CPT/HCPCS: 71045; 80048; 83605; 85025; 93005; 99284; A4216

== ENCOUNTER 2021-11-05 13:00 | Outpatient (RCR) | payer MEDICARE, SELFPAY ==
[2021-10-08 00:47] VITALS: RESP 18; TEMP 36.2
[2021-10-09 09:12] VITALS: TEMP 36.4
--- NOTE | 2021-10-09 09:59 | PN.PCM_ITS ---
History of Present Illness Date of Service: 10/09/21 Chief Complaint: Left posterior leg wound History of Wound: Patient is a 66 year old female who presents today for evaluation of her left posterior leg wound. She fell walking up her steps in the dark and she hit her anterior left leg very hard on 08/25/21. A few days later she developed a bruise on the back of her left leg. She states that the bruise started to resolve but then she went square dancing two days in a row over the weekend, the wound opened and drained serosanguineous drainage and became very painful and red. She went to the ED yesterday,09/21/[address] scan was performed which showed Laceration or infection with sinus tract posterior medially but no abscess or osteomyelitis. She was started on Doxycycline. She has been placing a dressing that a friend gave her and she brought the packaging, but it is not in Spanish. She states it is a moist, thick gauze. 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 She lives in [place] but has been staying with family for a few weeks. Surgery 10/07/[address] Verma for - Debridement down to muscle and/or fascia wound 7x7 cm Wound care - Dakins 0.25% moistened gauzed packed into the wound and topped with gauze. Will apply for wound VAC. Today she denies any fever, chills, nausea or vomiting. Progress of Wound: Left posterior leg ulcer is beefy pink with no active bleeding. She is having increased discomfort since her surgery two days ago. Kath wound is stable. Edema is minimal. Objective Data Objective Data Vital Signs: Vital Signs Temp Resp 97.5 F L 18 10/09/21 09:12 10/08/21 00:47 Charges/Coding Procedures Integumentary [id number]: [id number] Global Visit Physical Exam Const alert and oriented x3 General Appearance: cooperative HEENT normocephalic Resp normal respiratory effort and normal air movement Effort and Inspection: able to speak in complete sentences Cardio regular rate Peripheral Pulses: dorsalis pedis pulses present bilateral 2+ Extremity full ROM and normal capillary refill Extremity Narrative: +1 non pitting edema of left leg. Peripheral Pulses: Yes dorsalis pedis pulses present Skin Wound Narrative: Left posterior leg wound is beefy pink, muscle is exposed. Discomfort with palpation. Kath wound clear. Neuro moves all extremities Psych mental status grossly normal Debridement Note Debridement Note No debridement was completed: No debridement was completed today Post-Debridement Measurements and Additional Note: Post-Debridement Measurements/Treatment WARREN - Nurse 1 - General Ulcer Assessment Start: 10/09/21 09:11 Freq: Status: Active Protocol: AKIN Activity Type Activity Date Activity User E-sign Co-sign Detail Recorded Client Recorded Date Recorded By Document 10/09/21 09:12 KR [id number] 10/09/21 09:13 CHAPARRO 10/09/21 09:12 - Today's Visit Information Type of service Follow-up Visit (Physician/PROGRAM SUPPORT CLERK ) Arrival Mode Ambulatory Patient Identification Verified (Name & Yes ) Vital Signs Temperature (97.8 F-99.1 F) 97.5 F L Temperature Source Temporal History Since Last Visit- (Skip if this is Patient's initial visit) Have you changed medications since your No last visit? Any new allergies or adverse reactions No Had a fall/change in ADL's that may No increase risk of falls Signs or symptoms of abuse and/or No neglect since last visit Have you been in the hospital since your No last visit? Has dressing in place as prescribed Yes Has compression in place as prescribed N/A Has offloadiing in place as prescribed N/A Experienced any changes in pain level or No management Left Footwear Regular Shoe Right Footwear Regular Shoe Pain Scale: 0-10 Numeric Is Patient Pain Free? Yes WARREN Dalal Nurse 1 - General Ulcer Measurement Start: 10/09/21 09:11 Freq: Status: Active Protocol: Activity Type Activity Date Activity User E-sign Co-sign Detail Recorded Client Recorded Date Recorded By Document 10/09/21 09:12 KR [id number] 10/09/21 09:13 CHAPARRO 10/09/21 09:12 Wound Center Nurse 1 #1- L POST LE (TRAUMA/POST FALL) -Current Size (cm) - Length 7 -Current Size (cm) - Width 5.5 -Current Size (cm) - Depth 2.7 -Total Square Cm 38.5 -Exudate Amt Medium -Exudate Type Serosanguineous -Wound Margin Distinct, Outline Attached -Granulation Amt Large (67-100%) -Granulation Quality Red -Necrosis Amt None Present (0 %) -Texture (Kath-wound Skin Appearance) Assessed, Scarring -Moisture (Kath-wound Skin Appearance) No Abnormality, Assessed -Color (Kath-wound Skin Appearance) No Abnormality, Assessed -Temperature (Kath-wound Skin No Abnormality Appearance) (Pt Warm) -Tenderness on Palpation (Kath-wound No Skin Appearance) -Ulcer Cleansing Rinsed/ Irrigated with Saline -Foul Odor after Cleansing No -Anesthetic Used 5% Lidocaine Gel WC - Nurse 3 - General Ulcer D/C NN Start: 10/09/21 09:11 Freq: Status: Active Protocol: Activity Type Activity Date Activity User E-sign Co-sign Detail Recorded Client Recorded Date Recorded By Document 10/09/21 09:51 CHAPARRO [id number] 10/09/21 09:51 CHAPARRO 10/09/21 09:51 Wound Care Nurse 3 -Ulcer Cleansing Rinsed/ Irrigated with Saline -Other Dressing wet to dry -Primary Dressing Covered/Secured with Dry Gauze, Secured with Tape Pain Scale: 0-10 Numeric Is Patient Pain Free? Yes WC - Visit Discharge Discharge Condition Stable Ambulatory Status Ambulatory Transportation Private Auto Assessment/Plan Assessment/Plan (1) Leg wound, left: CODE(S): S81.802A - Unspecified open wound, left lower leg, initial encounter (2) Traumatic hematoma of right lower leg with infection: CODE(S): S80.11XA - Contusion of right lower leg, initial encounter; L08.9 - Local infection of the skin and subcutaneous tissue, unspecified (3) Current chronic use of systemic steroids: CODE(S): Z79.52 - snf (current) use of systemic steroids PLAN: Plan Patient was evaluated at the wound center today. A debridement was deferred due to her having had an operative debridement by Dr. Verma two days ago on 10/07/21. Wound care - Dakins 0.25% moistened gauze into the depth of the wound and cover wound with gauze/ABD. May wash the wound with soap and water daily at the time of the dressing changes. Will apply for a wound VAC. If the VAC is approved, then it will be at 150 mmHg and changed twice a week. She can come to the wound center for dressing changes. Compression - Single layer tubigrip. Encouraged increased protein intake. Discussed what is considered protein and that she may need to also increase her fiber or take stool softener to prevent constipation. Start taking Vitamin C 1,000 mg daily. Discussed keeping her leg elevated when sitting to help prevent swelling and to avoid standing for long periods of time. She is supposed to leave for [place] for several weeks the second week of October. If we get the wound VAC approved, we will refer her to a [facility] wound center there for continued cared because she is then going to [place] for a week then onto [place] for a month. Hopefully she will only need the wound VAC for a month to help decrease her wound depth and then she can switch to a daily dressing. IF she would need to continue the wound VAC, she could take a wound VAC holiday for a week while being in [place] and then be referred to a [facility] wound center in [place] for further wound care. I did instruct her to discuss this with Dr. Verma, so he is aware that she will be leaving the area. She has an appointment next Tuesday with Dr. Verma. She will follow up next with me.
[2021-10-26 10:49] VITALS: BP 112/68; PULSE 109; TEMP 36.4
--- NOTE | 2021-10-26 15:59 | PN.PCM_ITS ---
History of Present Illness Date of Service: 10/26/21 Chief Complaint: Left posterior leg wound History of Wound: Patient is a 66 year old female who presents today for evaluation of her left posterior leg wound. She fell walking up her steps in the dark and she hit her anterior left leg very hard on 08/25/21. A few days later she developed a bruise on the back of her left leg. She states that the bruise started to resolve but then she went square dancing two days in a row over the weekend, the wound opened and drained serosanguineous drainage and became very painful and red. She went to the ED on 09/21/[address] scan was performed which showed Laceration or infection with sinus tract posterior medially but no abscess or osteomyelitis. She was started on Doxycycline. She has been placing a dressing that a friend gave her and she brought the packaging, but it is not in [place]. She states it is a moist, thick gauze. 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 She lives in [place] but has been staying with family for a few weeks. Surgery 10/07/[address] Verma for - Debridement down to muscle and/or fascia wound 7x7 cm Wound care - Wound VAC at 150 mmHg to be changed Tuesday and at the wound center. She was recently admitted 10/20/21-10/23/21 for non-STEMI, Ischemic cardiomyopathy/Takotsubo cardiomyopathy 25-35%. They were not able to place a stent. She is now on Plavix. Wound care - Wound VAC at 150 mmHg to be changed on Tuesday and at the wound center. Today she denies any fever, chills, nausea or vomiting. Progress of Wound: Left posterior leg ulcer is beefy pink with granulation tissue starting to form. Overall the ulcer is smaller in size. She has a new skin tear wound on right forearm that is superficial that she obtained bumping it on something while she was hospitalized. Objective Data Objective Data Vital Signs: Vital Signs Temp Pulse Resp BP 97.5 F L 109 H 18 112/68 10/26/21 10:49 10/26/21 10:49 10/08/21 00:47 10/26/21 10:49 Charges/Coding Addendum Addendum: 33192 selective debridement of right forearm Procedures Integumentary 111xxx-113xx: 19329 Yin musc/fascia 20 sq cm/< (left posterior leg ulcer) Physical Exam Const alert and oriented x3 General Appearance: cooperative HEENT normocephalic Resp normal respiratory effort and normal air movement Effort and Inspection: able to speak in complete sentences Cardio regular rate Peripheral Pulses: dorsalis pedis pulses present bilateral 2+ Extremity full ROM and normal capillary refill Extremity Narrative: +1 non pitting edema of left leg. Peripheral Pulses: Yes dorsalis pedis pulses present Skin Wound Narrative: Left posterior leg wound is beefy pink, it is smaller in size and has decreased in depth. She has a new skin tear on her right forearm that is superficial. She had replaced the skin that tore back over the open area and some of it has started to readhere. Neuro moves all extremities Psych mental status grossly normal Debridement Note Debridement Note Wound debrided: Posterior leg wound Laterality: Left Wound Grade/Stage: Stage IV Type of Debridement: Excisional debridement Anesthesia Used: 5% Lidocaine Gel Depth: Down to and including healthy tissue, in the subcutaneous layer and to muscle Percentage of wound debrided: 100 Instrument Used: 7mm curette Tissue Removed: Devitalized tissue and slough Severity: Fat Layer Exposed Amount of bleeding with debridement: Mild Bleeding Controlled with: Compression and gauze Patient tolerated procedure: Patient tolerated procedure well Post-Debridement Measurements and Additional Note: Post-Debridement Measurements/Treatment - Nurse 1 - General Ulcer Assessment Start: 10/09/21 09:11 Freq: Status: Active Protocol: AKIN Activity Type Activity Date Activity User E-sign Co-sign Detail Recorded Client Recorded Date Recorded By Document 10/09/21 09:12 CHAPARRO [id number] 10/09/21 09:13 KR Document 10/26/21 10:49 CHAPARRO [id number] 10/26/21 10:50 KR 10/09/21 10/26/21 09:12 10:49 - Today's Visit Information Type of service Follow-up Visit Follow-up Visit (Physician/BOOK TRIMMER (Physician/BOOK TRIMMER ) ) Arrival Mode Ambulatory Ambulatory Patient Identification Verified (Name & Yes Yes ) Vital Signs Temperature (97.8 F-99.1 F) 97.5 F L 97.5 F L Temperature Source Temporal Temporal Pulse Rate (60-100) 109 H Pulse Location Monitor Blood Pressure (90/60-120/80) 112/68 Blood Pressure Mean (mm Hg) 82 Source Monitor Position Semi-Fowlers Blood Pressure Location Left Arm History Since Last Visit- (Skip if this is Patient's initial visit) Have you changed medications since your No No last visit? Any new allergies or adverse reactions No No Had a fall/change in ADL's that may No No increase risk of falls Signs or symptoms of abuse and/or No No neglect since last visit Have you been in the hospital since your No No last visit? Has dressing in place as prescribed Yes Yes Has compression in place as prescribed N/A N/A Has offloadiing in place as prescribed N/A N/A Experienced any changes in pain level or No No management Left Footwear Regular Shoe Regular Shoe Right Footwear Regular Shoe Regular Shoe Pain Scale: 0-10 Numeric Is Patient Pain Free? Yes Yes WC - Nurse 1 - General Ulcer Measurement Start: 10/09/21 09:11 Freq: Status: Active Protocol: Activity Type Activity Date Activity User E-sign Co-sign Detail Recorded Client Recorded Date Recorded By Document 10/09/21 09:12 [id number] 10/09/21 09:13 KR Document 10/26/21 10:49 KR [id number] 10/26/21 10:50 KR 10/09/21 10/26/21 09:12 10:49 Wound Center Nurse 1 #1- L POST LE (TRAUMA/POST FALL) -Current Size (cm) - Length 7 5.5 -Current Size (cm) - Width 5.5 2.5 -Current Size (cm) - Depth 2.7 2 -Total Square Cm 38.5 13.75 -Exudate Amt Medium Medium -Exudate Type Serosanguineous Serosanguineous -Wound Margin Distinct, Outline Attached -Granulation Amt Large (67-100%) Large (67-100%) -Granulation Quality Red [place],Red -Necrosis Amt None Present (0 None Present (0 %) %) -Texture (Kath-wound Skin Appearance) Assessed, Assessed, Scarring Scarring -Moisture (Kath-wound Skin Appearance) No Abnormality, No Abnormality, Assessed Assessed -Color (Kath-wound Skin Appearance) No Abnormality, No Abnormality, Assessed Assessed -Temperature (Kath-wound Skin No Abnormality No Abnormality Appearance) (Pt Warm) (Pt Warm) -Tenderness on Palpation (Kath-wound No No Skin Appearance) -Ulcer Cleansing Rinsed/ Soap and Water Irrigated with Saline -Foul Odor after Cleansing No No -Anesthetic Used 5% Lidocaine 4% Lidocaine Gel Solution,5% Lidocaine Gel WC - Nurse 2 - General Ulcer CM Notes Start: 10/09/21 09:11 Freq: Status: Active Protocol: Activity Type Activity Date Activity User E-sign Co-sign Detail Recorded Client Recorded Date Recorded By Document 10/26/21 11:02 TIA [id number] 10/26/21 11:08 TIA 10/26/21 11:02 Wound Center Nurse 2 2-right forearm -Time 11:03 -Correct Patient No -Correct Side, Site, Position No -Correct Procedure No -Procedure Performed No -Type of Procedure Debridement -Clinical Debridement Epidermis / Dermis -Tissue Removed Epidermis, Dermis -Post Debridement (cm) - Length 1.7 -Post Debridement (cm) - Width 1.7 -Post Debridement (cm) - Depth 0.1 -Total Square (Post) (cm) 2.89 -Area of Debridement (cm) - Length 1.7 -Area of Debridement (cm) - Width 1.7 -Total Square (Area) (cm) 2.89 -Tunneling No -Undermining/Tunneling No -Circular Undermining No -Wound/Ulcer Outcome Not Healed -Ulcer Cleansing Rinsed/ Irrigated with Saline -Foul Odor after Cleansing No -Bioengineered Tissue No -Bleeding Controlled with Pressure -Treatment Response Procedure Tolerated Well -Offloading No -Debridement - Open, 1st 20sq cm Yes -Debridement - Subq, 1st 20sq cm No #1- L POST LE (TRAUMA/POST FALL) -Time 11:03 -Correct Patient Yes -Correct Side, Site, Position Yes -Correct Procedure Yes -Procedure Performed Yes -Type of Procedure Debridement -Clinical Debridement Muscle / Fascia -Tissue Removed Muscle -Post Debridement (cm) - Length 5.7 -Post Debridement (cm) - Width 3.5 -Post Debridement (cm) - Depth 0.7 -Total Square (Post) (cm) 19.95 -Area of Debridement (cm) - Length 5.7 -Area of Debridement (cm) - Width 3.5 -Total Square (Area) (cm) 19.95 -Tunneling No -Undermining/Tunneling No -Circular Undermining No -Wound/Ulcer Outcome Not Healed -Ulcer Cleansing Wound Cleanser -Foul Odor after Cleansing No -Bioengineered Tissue No -Bleeding Controlled with Pressure -Treatment Response Procedure Tolerated Well -Offloading No -Debridement - Subq, 1st 20sq cm No -Debridement - Muscle / Fascia, 1st Yes 20sq cm Pain Scale: 0-10 Numeric Is Patient Pain Free? Yes - Nurse 3 - General Ulcer D/C NN Start: 10/09/21 09:11 Freq: Status: Active Protocol: Activity Type Activity Date Activity User E-sign Co-sign Detail Recorded Client Recorded Date Recorded By Document 10/09/21 09:51 CHAPARRO [id number] 10/09/21 09:51 CHAPARRO 10/09/21 09:51 Wound Care Nurse 3 #1- L POST LE (TRAUMA/POST FALL) -Ulcer Cleansing Rinsed/ Irrigated with Saline -Other Dressing wet to dry -Primary Dressing Covered/Secured with Dry Gauze, Secured with Tape Pain Scale: 0-10 Numeric Is Patient Pain Free? Yes - Visit Discharge Discharge Condition Stable Ambulatory Status Ambulatory Transportation Private Auto Additional Wound Wound debrided: Forearm skin tear Laterality: Right Type of Debridement: Selective debridement Anesthesia Used: 5% Lidocaine Gel Depth: Down to and including healthy tissue and in the subcutaneous layer Percentage of wound debrided: 80 Instrument Used: - (scissors and pickups) Tissue Removed: Devitalized tissue and slough Severity: Limited To Skin Breakdown Amount of bleeding with debridement: Mild Bleeding Controlled with: Pressure Patient tolerated procedure: Patient tolerated procedure well Assessment/Plan Assessment/Plan (1) Ulcer of left lower extremity with fat layer exposed: CODE(S): L97.922 - Non-pressure chronic ulcer of unspecified part of left lower leg with fat layer exposed (2) Skin tear of right upper extremity: CODE(S): S41.111A - Laceration without foreign body of right upper arm, initial encounter (3) Current chronic use of systemic steroids: CODE(S): Z79.52 - joint terminal attack controller (current) use of systemic steroids PLAN: Plan Patient was evaluated at the wound center today. A debridement was deferred due to her having had an operative debridement by Dr. Verma two days ago on 10/07/21. Wound care - Left posterior leg ulcer is wound VAC at 150 mmHg. The dressing is changed at the wound center on Mondays and . Right forearm skin tear will place collagen hydrogel, cover with adaptic and top with gauze daily. Compression - Single layer tubigrip. Encouraged increased protein intake. Discussed what is considered protein and that she may need to also increase her fiber or take stool softener to prevent constipation. Start taking Vitamin C 1,000 mg daily. Discussed keeping her leg elevated when sitting to help prevent swelling and to avoid standing for long periods of time. Since she had her NC, her operating systems specialist is not allowing her to travel for at least a month, therefore, hopefully she will be done with the wound VAC before she has to leave our area. We will still refer her to a wound center in the area of where ever she goes after leaving here. Follow up for a nurse visit to have the VAC dressing changed. Follow up one week to see me. She is to call or come in sooner if she develops and conerns.
[2021-10-29 13:33] VITALS: BP 132/75; PULSE 110; RESP 16; TEMP 35.5
[2021-11-02 15:48] VITALS: BP 140/82; PULSE 72; RESP 20; TEMP 36.6
--- NOTE | 2021-11-02 16:18 | PCM.WC.PN ---
History of Present Illness Date of Service: 11/02/21 Chief Complaint: Left posterior leg wound History of Wound: Patient is a 66 year old female who presents today for evaluation of her left posterior leg wound. She fell walking up her steps in the dark and she hit her anterior left leg very hard on 08/25/21. A few days later she developed a bruise on the back of her left leg. She states that the bruise started to resolve but then she went square dancing two days in a row over the weekend, the wound opened and drained serosanguineous drainage and became very painful and red. She went to the ED on 09/21/[address] scan was performed which showed Laceration or infection with sinus tract posterior medially but no abscess or osteomyelitis. She was started on Doxycycline. She has been placing a dressing that a friend gave her and she brought the packaging, but it is not in [place]. She states it is a moist, thick gauze. 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 She lives in [place] but has been staying with family for a few weeks. Surgery 10/07/[address] Verma for - Debridement down to muscle and/or fascia wound 7x7 cm Wound care - Wound VAC at 150 mmHg to be changed Tuesday and at the wound center. She was recently admitted 10/20/21-10/23/21 for non-STEMI, Ischemic cardiomyopathy/Takotsubo cardiomyopathy 25-35%. They were not able to place a stent. She is now on Plavix. Wound care - Wound VAC at 150 mmHg to be changed on Tuesday and at the wound center. Today she denies any fever, chills, nausea or vomiting. Progress of Wound: Left posterior leg ulcer is beefy pink with granulation tissue present. Overall the ulcer is smaller in size. Right arm skin tear is healed. Objective Data Objective Data Vital Signs: Vital Signs Temp Pulse Resp BP O2 Del Method 97.8 F 72 20 H 140/82 H Room Air 11/02/21 15:48 11/02/21 15:48 11/02/21 15:48 11/02/21 15:48 10/29/21 13:33 Oxygen Delivery Method Room Air Charges/Coding Procedures Integumentary 111xxx-113xx: [id number] Yin subq tissue 20 sq cm/< Physical Exam Const alert and oriented x3 General Appearance: cooperative HEENT normocephalic Resp normal respiratory effort and normal air movement Effort and Inspection: able to speak in complete sentences Cardio regular rate Peripheral Pulses: dorsalis pedis pulses present bilateral 2+ Extremity full ROM and normal capillary refill Extremity Narrative: +1 non pitting edema of left leg. Peripheral Pulses: Yes dorsalis pedis pulses present Skin Wound Narrative: Left posterior leg wound is beefy pink, it is smaller in size and has decreased in depth. Skin tear on her right forearm that is healed. Neuro moves all extremities Psych mental status grossly normal Debridement Note Debridement Note Wound debrided: Posterior leg wound Laterality: Left Wound Grade/Stage: Stage IV Type of Debridement: Excisional debridement Anesthesia Used: 5% Lidocaine Gel Depth: Down to and including healthy tissue, in the subcutaneous layer and to muscle Percentage of wound debrided: 100 Instrument Used: 5mm curette Tissue Removed: Devitalized tissue and slough Severity: Fat Layer Exposed Amount of bleeding with debridement: Mild Bleeding Controlled with: Compression and gauze Patient tolerated procedure: Patient tolerated procedure well Post-Debridement Measurements and Additional Note: Post-Debridement Measurements/Treatment - Nurse 1 - General Ulcer Assessment Start: 10/09/21 09:11 Freq: Status: Active Protocol: AKIN Activity Type Activity Date Activity User E-sign Co-sign Detail Recorded Client Recorded Date Recorded By Document 10/09/21 09:12 KR [id number] 10/09/21 09:13 KR Document 10/26/21 10:49 KR [id number] 10/26/21 10:50 KR Document 10/29/21 13:33 [facility] [id number] 10/29/21 13:35 BMF Document 11/02/21 15:48 DL [id number] 11/02/21 16:03 DL 10/09/21 10/26/21 10/29/21 09:12 10:49 13:33 - Today's Visit Information Type of service Follow-up Visit Follow-up Visit Nurse-only (Physician/UNIX SYSTEMS ADMINISTRATOR (Physician/UNIX SYSTEMS ADMINISTRATOR Visit ) ) Arrival Mode Ambulatory Ambulatory Ambulatory Transfer Assistance None Patient Identification Verified (Name & Yes Yes Yes ) Patient Requires Transmission-Based No Precautions Vital Signs Temperature (97.8 F-99.1 F) 97.5 F L 97.5 F L 95.9 F L Temperature Source Temporal Temporal Temporal Pulse Rate (60-100) 109 H 110 H Pulse Location Monitor Monitor Respiratory Rate (12-18) 16 Respiratory rate source Observation Oxygen Delivery Method Room Air Blood Pressure (90/60-120/80) 112/68 132/75 H Blood Pressure Mean (mm Hg) 82 94 Source Monitor Monitor Position Semi-Fowlers Sitting Blood Pressure Location Left Arm Left Arm History Since Last Visit- (Skip if this is Patient's initial visit) Have you changed medications since your No No No last visit? Any new allergies or adverse reactions No No No Had a fall/change in ADL's that may No No No increase risk of falls Signs or symptoms of abuse and/or No No No neglect since last visit Have you been in the hospital since your No No No last visit? Has dressing in place as prescribed Yes Yes Yes Has compression in place as prescribed N/A N/A Yes Has offloadiing in place as prescribed N/A N/A N/A Experienced any changes in pain level or No No No management Left Footwear Regular Shoe Regular Shoe Regular Shoe Right Footwear Regular Shoe Regular Shoe Regular Shoe Pain Scale: 0-10 Numeric Is Patient Pain Free? Yes Yes Yes 11/02/21 15:48 WC - Today's Visit Information Type of service Follow-up Visit (Physician/UNIX SYSTEMS ADMINISTRATOR ) Arrival Mode Ambulatory Transfer Assistance None Patient Identification Verified (Name & Yes ) Patient Requires Transmission-Based Precautions Vital Signs Temperature (97.8 F-99.1 F) 97.8 F Temperature Source Temporal Pulse Rate (60-100) 72 Pulse Location Monitor Respiratory Rate (12-18) 20 H Respiratory rate source Observation Oxygen Delivery Method Blood Pressure (90/60-120/80) 140/82 H Blood Pressure Mean (mm Hg) 101 Source Monitor Position Blood Pressure Location History Since Last Visit- (Skip if this is Patient's initial visit) Have you changed medications since your No last visit? Any new allergies or adverse reactions No Had a fall/change in ADL's that may No increase risk of falls Signs or symptoms of abuse and/or No neglect since last visit Have you been in the hospital since your No last visit? Has dressing in place as prescribed Yes Has compression in place as prescribed Yes Has offloadiing in place as prescribed N/A Experienced any changes in pain level or No management Left Footwear Right Footwear Pain Scale: 0-10 Numeric Is Patient Pain Free? Yes WC - Nurse 1 - General Ulcer Measurement Start: 10/09/21 09:11 Freq: Status: Active Protocol: Activity Type Activity Date Activity User E-sign Co-sign Detail Recorded Client Recorded Date Recorded By Document 10/09/21 09:12 KR [id number] 10/09/21 09:13 KR Document 10/26/21 10:49 KR [id number] 10/26/21 10:50 KR Document 11/02/21 15:48 DL [id number] 11/02/21 16:03 DL 10/09/21 10/26/21 11/02/21 09:12 10:49 15:48 Wound Center Nurse 1 2-right forearm -Current Size (cm) - Length 0.1 -Current Size (cm) - Width 0.1 -Current Size (cm) - Depth 0.1 -Total Square Cm 0.01 -Photo Taken Yes -Exudate Amt None Present -Wound Margin Flat & Intact -Granulation Amt Large (67-100%) -Granulation Quality [place] -Necrosis Amt Small (1-33%) -Necrotic Tissue Type Adherent Slough -Structure Exposed N/A -Texture (Kath-wound Skin Appearance) Scarring -Moisture (Kath-wound Skin Appearance) No Abnormality -Color (Kath-wound Skin Appearance) No Abnormality -Temperature (Kath-wound Skin No Abnormality Appearance) (Pt Warm) -Tenderness on Palpation (Kath-wound No Skin Appearance) -Ulcer Cleansing Not Cleansed #1- L POST LE (TRAUMA/POST FALL) -Current Size (cm) - Length 7 5.5 4.7 -Current Size (cm) - Width 5.5 2.5 3.7 -Current Size (cm) - Depth 2.7 2 0.2 -Total Square Cm 38.5 13.75 17.39 -Photo Taken Yes -Exudate Amt Medium Medium Small -Exudate Type Serosanguineous Serosanguineous Serosanguineous -Wound Margin Distinct, Distinct, Outline Outline Attached Attached -Granulation Amt Large (67-100%) Large (67-100%) Large (67-100%) -Granulation Quality Red [place],Red Red -Necrosis Amt None Present (0 None Present (0 None Present (0 %) %) %) -Structure Exposed N/A -Texture (Kath-wound Skin Appearance) Assessed, Assessed, Scarring Scarring Scarring -Moisture (Kath-wound Skin Appearance) No Abnormality, No Abnormality, No Abnormality Assessed Assessed -Color (Kath-wound Skin Appearance) No Abnormality, No Abnormality, No Abnormality Assessed Assessed -Temperature (Kath-wound Skin No Abnormality No Abnormality No Abnormality Appearance) (Pt Warm) (Pt Warm) (Pt Warm) -Tenderness on Palpation (Kath-wound No No Skin Appearance) -Ulcer Cleansing Rinsed/ Soap and Water Soap and Water Irrigated with Saline -Foul Odor after Cleansing No No No -Anesthetic Used 5% Lidocaine 4% Lidocaine 4% Lidocaine Gel Solution,5% Solution Lidocaine Gel Right Calf (cm) 34 Right Ankle (cm) 21 WC - Nurse 2 - General Ulcer CM Notes Start: 10/09/21 09:11 Freq: Status: Active Protocol: Activity Type Activity Date Activity User E-sign Co-sign Detail Recorded Client Recorded Date Recorded By Document 10/26/21 11:02 [id number] 10/26/21 11:08 Document 11/02/21 16:11 [id number] 11/02/21 16:15 10/26/21 11/02/21 11:02 16:11 Wound Center Nurse 2 2-right forearm -Time 11:03 -Correct Patient No No -Correct Side, Site, Position No No -Correct Procedure No No -Procedure Performed No No -Type of Procedure Debridement -Clinical Debridement Epidermis / Dermis -Tissue Removed Epidermis, Dermis -Post Debridement (cm) - Length 1.7 0 -Post Debridement (cm) - Width 1.7 0 -Post Debridement (cm) - Depth 0.1 0 -Total Square (Post) (cm) 2.89 0 -Area of Debridement (cm) - Length 1.7 0 -Area of Debridement (cm) - Width 1.7 0 -Total Square (Area) (cm) 2.89 0 -Tunneling No -Undermining/Tunneling No -Circular Undermining No -Wound/Ulcer Outcome Not Healed Healed- Epithelialized -Ulcer Cleansing Rinsed/ Irrigated with Saline -Foul Odor after Cleansing No -Bioengineered Tissue No -Bleeding Controlled with Pressure -Treatment Response Procedure Tolerated Well -Offloading No -Debridement - Open, 1st 20sq cm Yes -Debridement - Subq, 1st 20sq cm No #1- L POST LE (TRAUMA/POST FALL) -Time 11:03 16:11 -Correct Patient Yes Yes -Correct Side, Site, Position Yes Yes -Correct Procedure Yes Yes -Procedure Performed Yes Yes -Type of Procedure Debridement Debridement -Clinical Debridement Muscle / Fascia Subcutaneous -Tissue Removed Muscle Subcutaneous -Post Debridement (cm) - Length 5.7 4.2 -Post Debridement (cm) - Width 3.5 4.0 -Post Debridement (cm) - Depth 0.7 0.4 -Total Square (Post) (cm) 19.95 16.80 -Area of Debridement (cm) - Length 5.7 4.2 -Area of Debridement (cm) - Width 3.5 4.0 -Total Square (Area) (cm) 19.95 16.80 -Tunneling No No -Undermining/Tunneling No No -Circular Undermining No No -Wound/Ulcer Outcome Not Healed Not Healed -Ulcer Cleansing Wound Cleanser Rinsed/ Irrigated with Saline -Foul Odor after Cleansing No No -Bioengineered Tissue No No -Bleeding Controlled with Pressure Pressure -Treatment Response Procedure Procedure Tolerated Well Tolerated Well -Offloading No No -Debridement - Subq, 1st 20sq cm No Yes -Debridement - Muscle / Fascia, 1st Yes 20sq cm Pain Scale: 0-10 Numeric Is Patient Pain Free? Yes Yes WC - Nurse 3 - General Ulcer D/C NN Start: 10/09/21 09:11 Freq: Status: Active Protocol: Activity Type Activity Date Activity User E-sign Co-sign Detail Recorded Client Recorded Date Recorded By Document 10/09/21 09:51 KR [id number] 10/09/21 09:51 KR Document 10/29/21 13:33 [facility] [id number] 10/29/21 13:35 [facility] 10/09/21 10/29/21 09:51 13:33 Wound Care Nurse 3 #1- L POST LE (TRAUMA/POST FALL) -Ulcer Cleansing Rinsed/ Soap and Water Irrigated with Saline -Foul Odor after Cleansing No -Negative Pressure Wound Therapy Continue -Setting (mmHg) 150 -Negative Pressure is Continuous -Other Dressing wet to dry -Primary Dressing Covered/Secured with Dry Gauze, Secured with Tape -NPWT Application Charge NPWT </= 50 sq cm ($) Left -Other reapplied pts own single layer tubi Treatment Response Procedure Tolerated Well Vital Signs Temperature (97.8 F-99.1 F) 95.9 F L Temperature Source Temporal Pulse Rate (60-100) 110 H Pulse Location Monitor Respiratory Rate (12-18) 16 Respiratory rate source Observation Oxygen Delivery Method Room Air Blood Pressure (90/60-120/80) 132/75 H Blood Pressure Mean (mm Hg) 94 Source Monitor Position Sitting Blood Pressure Location Left Arm Pain Scale: 0-10 Numeric Is Patient Pain Free? 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 A debridement was deferred due to her having had an operative debridement by Dr. Verma two days ago on 10/07/21. Wound care - Left posterior leg ulcer is wound VAC at 150 mmHg. The dressing is changed at the wound center on Mondays and . Right forearm skin tear is healed today. Compression - Single layer tubigrip. Encouraged increased protein intake. Discussed what is considered protein and that she may need to also increase her fiber or take stool softener to prevent constipation. Start taking Vitamin C 1,000 mg daily. Discussed keeping her leg elevated when sitting to help prevent swelling and to avoid standing for long periods of time. Since she had her [place], her welding operator is not allowing her to travel for at least a month, therefore, hopefully she will be done with the wound VAC before she has to leave our area. We will still refer her to a wound center in the area of where ever she goes after leaving here. Follow up for a nurse visit to have the VAC dressing changed. Follow up one week to see me. She is to call or come in sooner if she develops and conerns.
[2021-11-05 13:42] VITALS: BP 130/51; PULSE 107; TEMP 36.4
== END 2021-11-06 23:59 | disposition home or self-care (01) ==
LOC: WC 13:00
PROVIDERS: PCP Internal Medicine; Visit Provider Nurse Practitioner Family
DX: L97.922 Non-pressure chronic ulcer of unspecified part of left lower leg with fat layer exposed (principal); E27.1 Primary adrenocortical insufficiency; S51.811S Laceration without foreign body of right forearm, sequela; S80.11XS Contusion of right lower leg, sequela; W10.9XXS Fall (on) (from) unspecified stairs and steps, sequela; K21.9 Gastro-esophageal reflux disease without esophagitis; I73.00 Raynaud's syndrome without gangrene; M85.861 Other specified disorders of bone density and structure, right lower leg; L08.9 Local infection of the skin and subcutaneous tissue, unspecified; E03.9 Hypothyroidism, unspecified; I25.5 Ischemic cardiomyopathy; M79.7 Fibromyalgia; R60.9 Edema, unspecified; I25.2 Old myocardial infarction; Z79.82 Long term (current) use of aspirin; Z79.52 Long term (current) use of systemic steroids; Z79.02 Long term (current) use of antithrombotics/antiplatelets; Z79.890 Hormone replacement therapy; Z79.899 Other long term (current) drug therapy; Z96.651 Presence of right artificial knee joint
CPT/HCPCS: 11042; 11043; 97597; 97605; 99213; G0463

== ENCOUNTER → 2021-11-12 | Outpatient (CLI) | payer MEDICARE, SELFPAY ==
[2021-11-12 13:12] VITALS: BP 129/76; PULSE 115; RESP 16; TEMP 36.4; O2SAT 99; BMI 26.7
[2021-11-12] MEDS: 0.9% NaCl Peripheral Flush Adult/Peds IV (13:36)
[2021-11-12] MEDS: 0.9% NaCl IVPB Med Flush (250 mL) 15 ML IV (13:37)
[2021-11-12] MEDS: Zoledronic Acid 5 MG 100 ML 171.4 MG IV (13:37)
[2021-11-12 14:29] VITALS: BP 115/64; PULSE 104; TEMP 35.9
== END | disposition home or self-care (01) ==
LOC: MEDOUTP 13:06
PROVIDERS: PCP Internal Medicine; Referring Provider Internal Medicine Endocrinology, Diabetes & Metabolism; Visit Provider Internal Medicine Endocrinology, Diabetes & Metabolism
DX: M81.0 Age-related osteoporosis without current pathological fracture (principal)
CPT/HCPCS: 96365; J7050; A4216; J3489

== ENCOUNTER → 2021-11-18 | Outpatient (CLI) | payer MEDICARE, SELFPAY ==
[2021-11-18 13:13] LABS: Absolute Lymphocyte Count 1.14 X10^3/uL (0.83-4.51); Absolute Neutrophil Count 5.7 X10^3/uL (2.0-7.7); Basophil# 0.05 X10^3/uL; Basophil% 0.7 % (0-1); Eosinophil# 0.08 X10^3/uL; Eosinophils% 1.1 % (0-5); Hematocrit 40.9 % (37-47); Hemoglobin 13.2 g/dL (12.0-15.0); Lymphocyte # 1.14 X10^3/ul (0.83-4.51); Lymphocyte % 15.2 % (19-41); Mean Corp Hgb Conc 32.3 g/dL (32-36); Mean Corpuscular Hgb 31.7 pg (27.0-32.0); Mean Corpuscular Volume 98.1 fL (81-99); Mean Platelet Vol. 10.1 fl (6.2-12.0); Monocyte# 0.54 X10^3/uL; Monocyte% 7.2 % (0-10); NRBC Flagged by Analyzer 0 % (0-5); Neutrophil # 5.68 X10^3/uL (2.7-7.7); Neutrophil % 75.4 % (47-70); Platelet Count 256 K/mm3 (150-450); RBC Distribution Width CV 13.2 % (11.6-14.6); RBC Distribution Width SD 47.4 fl (35.1-43.9); Red Blood Count 4.17 M/mm3 (4.2-5.4); White Blood Count 7.5 K/mm3 (4.4-11.0)
[2021-11-18 13:43] LABS: T4 Free Direct 1.66 ng/dL (0.76-1.46)
[2021-11-18 13:47] LABS: AST(SGOT) 67 U/L (15-37); Alanine Aminotransfer ALT/SGPT 68 U/L (13-56); Albumin, Serum 3.2 g/dL (3.2-5.0); Alkaline Phosphatase 97 U/L (45-117); Anion Gap 6 (5-15); BUN 9 mg/dL (7-18); BUN/Creat Ratio 13.7 RATIO (10-20); Calcium,Total 8.6 mg/dL (8.5-10.1); Chloride 108 mmol/L (98-107); Creatinine, Serum 0.66 mg/dL (0.55-1.02); EST Glomerular Filtration Rate 96 mL/min (>60); Est Glom Filt Rate - Afr Amer 116 mL/min (>60); Globulin 3.2 g/dL (2.2-4.2); Glucose 149 mg/dL (74-106); Magnesium 2.1 mg/dL (1.6-2.6); Potassium 4.2 mmol/L (3.5-5.1); Protein, Total 6.4 g/dL (6.4-8.2); Sodium Level 140 mmol/L (136-145); Thyroid Stim Hormone (TSH) 0.15 uIU/mL (0.358-3.74)
== END | disposition home or self-care (01) ==
LOC: LAB 11:11
PROVIDERS: PCP Internal Medicine; Visit Provider Internal Medicine Endocrinology, Diabetes & Metabolism
DX: E27.1 Primary adrenocortical insufficiency (principal); I25.10 Atherosclerotic heart disease of native coronary artery without angina pectoris; E03.8 Other specified hypothyroidism; E06.3 Autoimmune thyroiditis; Z09 Encounter for follow-up examination after completed treatment for conditions other than malignant neoplasm
CPT/HCPCS: 36415; 80053; 83735; 84439; 84443; 85025

== ENCOUNTER → 2021-11-19 | Outpatient (CLI) | payer MEDICARE, SELFPAY ==
--- NOTE | 2021-11-19 08:13 | PCM.CR.HP2 ---
CR - History & Physical - General Arrival date:: 11/19/21 Arrival time:: 08:00 Date of Referral:: 11/11/21 Date of CR Evaluation:: 11/19/21 Referring Physician: Dr. Reji Gonsalez Primary Diagnosis: NSTMEI, PCI w/stenting, Takotsubo Syndrome - History of Present Cardiac Event Onset Date: Enter Onset Date of cardiac illnesses in Comment field below Acute Myocardial Infarction within 12 months:: Yes - non-ST elevated myocardial infarction Coronary Artery Bypass Graft:: No Heart valve replacement or repair:: No PTCA or coronary stenting:: Yes Vessel: LAD Heart or Heart-Lung Transplant:: No Type of Symptoms:: chest pain, nauseated, vomiting, numbness in the arms, clammy, diaphoretic, uncomfortable Interventions with present event:: went to cath. lab directly from the emergency room Were there any complications?: none, bruising was all. Bruises easily anyway. - Sleep Disorder Evaluation Hx of Sleep Apnea: No Do you snore loudly (louder than talking or can be heard through closed doors)?: No Do you often feel tired/ fatigued/ sleepy during daytime?: No Has anyone observed you stop breathing during sleep?: No History of Hypertension (for STOP score): No STOP Results: Negative - Medications Home Medications: Ambulatory Orders Medication Instructions Recorded calcium carbonate 500 mg calcium 1,000 mg PO BID 09/22/21 (1,250 mg) chewable tablet diclofenac sodium 1 % topical gel 1 ea topical PRN PRN Pain 09/22/21 estradiol 1 mg tablet 1 mg PO DAILY 09/22/21 fludrocortisone 0.1 mg tablet 0.1 mg PO DAILY 09/22/21 loperamide 2 mg capsule 2 mg PO Q4H PRN Diarrhea 09/22/21 loratadine 10 mg tablet 10 mg PO DAILY PRN Allergy Symptoms 09/22/21 omeprazole 20 mg tablet,delayed 20 mg PO DAILY 09/22/21 release ondansetron HCl 4 mg tablet 4 mg PO PRN PRN Nausea 09/22/21 sumatriptan succinate 100 mg 100 mg PO PRN PRN Migraine Headache 09/22/21 tablet (Imitrex) timolol 0.5 % eye drops 1 drp EACH EYE DAILY 09/22/21 vitamin B complex 1 tab PO DAILY 09/22/21 aspirin 81 mg tablet,delayed 81 mg PO DAILY@0800 30 days #30 10/22/21 release tabs sacubitril 24 mg-valsartan 26 mg 1 ea PO BID 30 days #60 tabs 10/22/21 tablet (Entresto) ascorbate calcium (vitamin C) 500 1 g PO DAILY 10/30/21 mg tablet cholecalciferol (vitamin D3) 25 25 mcg PO DAILY 10/30/21 mcg (1,000 unit) chewable tablet clopidogrel 75 mg tablet 75 mg PO DAILY 10/30/21 ezetimibe 10 mg tablet 10 mg PO DAILY 10/30/21 famotidine 20 mg tablet 20 mg PO BID 10/30/21 milnacipran 50 mg tablet (Savella) 50 mg PO BID 10/30/21 potassium chloride 10 mEq 30 meq PO DAILY 10/30/21 tablet,extended release (Klor-Con) tretinoin 0.025 % topical cream 1 applic topical QHS 10/30/21 prednisone 5 mg tablet 5 mg PO DAILY #30 tabs 11/02/21 zoledronic acid 5 mg/100 mL in 1 ea .Route ONCE #100 mL 11/03/21 mannitol 5 %-water intravenous piggybck levothyroxine 100 mcg tablet 100 mcg PO DAILY #30 tabs 11/19/21 onabotulinumtoxinA 100 unit See Rx Instructions .Route 11/19/21 solution for injection (Botox) .COMPLEX PRN Migraine Headache - Allergies Allergies/Adverse Reactions: Allergies adhesive Allergy (Intermediate, Verified 11/03/21 16:27) Rash amoxicillin [From Trimox] Allergy (Verified 11/03/21 16:27) Rash cyclobenzaprine [From Flexeril] Allergy (Verified 11/03/21 16:27) Rash erythromycin base [From Luis Fernando-Tab] Allergy (Verified 11/03/21 16:27) Vomiting Iodinated Contrast Media Allergy (Verified 11/03/21 16:27) Rash Sulfa (Sulfonamide Antibiotics) Allergy (Verified 11/03/21 16:27) Rash bupropion [From Budeprion SR] Adverse Reaction (Verified 11/03/21 16:27) Other SLEEP ISSUES clonazepam Adverse Reaction (Verified 11/03/21 16:27) Other SLEEP ISSUES divalproex sodium [From Depakote] Adverse Reaction (Verified 11/03/21 16:27) Other SLEEPINES duloxetine [From Cymbalta] Adverse Reaction (Verified 11/03/21 16:27) Other MEMORY ISSUES meperidine [From Demerol] Adverse Reaction (Verified 11/03/21 16:27) Other HEADACHE methylprednisolone [From Medrol] Adverse Reaction (Verified 11/03/21 16:27) Other MIGRAINE Advanced Directives - Advanced Directives 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 Living Will: Yes Advance Directives Information Provided: No Advance Directives on File: No - Sister has a copy in [place], girlfriend in [place] DNR Order?:: No - MOLST See MOLST form: No Past Medical History - Covid-19 Screening Fever: No Unexplained muscle aches: No Current respiratory symptoms: No Upper respiratory infections symptoms: No Gastro-intestinal symptoms: No Dlj-Mrzm-Kxubuq symptoms: No Has tested positive for COVID-19 in last 30 days: No Had contact w/person w/symptoms or Covid-19 (+) last 14 days: No Has High Risk Exposures ID'd by Health dept/Inf Control team: No 65 years or older:: Yes Lives in Assisted Living facility:: No Has a chronic lung disease or moderate to severe asthma:: No Has a serious heart condition:: No Immunocompromised:: No Severely obese (Body Mass Index of 40 or higher):: No Diabetic:: No Has chronic kidney disease undergoing dialysis:: No Has liver disease:: No - Past Medical Illness Medical History: Past Medical History (Last Updated 11/12/21 @ 07:[address] 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 2. The left anterior descending artery appears, occluded at the midportion with left to left collaterals there is no clear demonstration of the site of occlusion of the LAD. 3 the left circumflex artery angiographically appear normal, large OM1 branch 4. RCA is large dominant and normal angiographically with no collaterals noted from the right to the left; Interventional plan: We proceed with a 6 [place] JL 4 advanced sending aorta cannulated the left main and then we used a whisper wire across into the LAD and were able to cross into a smaller branch which appear at the second septal branch very small collaterals where shown from the left to left there is no collateral from the right side to the LAD. And the origin of the artery at the site of the diagonal appears very small however concerned about perforation with the balloon for we attempted not to perform any balloon dilatation at this point. per cardiac cath Dr. 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, E06.3 Leg cramps R25.2 OCC Migraines G43.909 PRN MED Non-smoker Z78.9 Open wound T14.8XXA LEFT CALF/PATIENT AT WOUND CENTER Osteoporosis M81.0 Prediabetes R73.03 Raynauds disease I73.00 Takotsubo cardiomyopathy I51.81 - Past Surgical History Surgical History: Past Surgical History (Last Reviewed 11/03/21 @ 16:39 by Page Fulton PSYCHOLOGICAL STRESS EVALUATOR, PSYCHOLOGICAL STRESS EVALUATOR-C) History of laparoscopic cholecystectomy Z90.49 2007 Hx of appendectomy Z90.49 Hx of bilateral cataract extraction Z98.41, Z98.42 Hx of colonoscopy Z98.890 Hx of tonsillectomy Z90.89 Hx of total knee arthroplasty Z96.659 PARTIAL 2020 Hx of vaginal hysterectomy Z90.710 - Family History Summary Family History: Family History (Last Reviewed 11/03/21 @ 16:39 by Page Fulton NP, PSYCHOLOGICAL STRESS EVALUATOR-C) Mother Heart disease ALS (amyotrophic lateral sclerosis) Father Heart disease Social History - Smoking History Smoking Status: Never smoker - Alcohol Use Alcohol Usage: Yes - occasional; wine or mixed drink usually only one - Substance Abuse Hx Substance Use: No - Occupation Occupation (List type of work in comments):: Retired - Hobbies, Recreation, Social Activities Hobbies: Sewing, Reading, Walking, Other - gardening, square dancing, walking Recreational Activities: I am able to engage in a few activities Social Environment - Status Marital Status: - Current Living Arrangements Living Environment:: Family - Brother - Children How many children do you have?: 0 Do any of your children live nearby?: No - Safety Do you feel safe in your surroundings?: Yes - Assistance Do you need any assistance at home?: no Review of Systems - Review of Systems Hints: Right click = Denies ([place]ash). Left click = Reports ([place]) Review of Present Symptoms: Reports: Shortness of Breath with Exertion - still limiting activities until get in cardiac rehab., Fatigue, Appetite - Normal, Sleep - Normal. Denies: Shortness of Breath at Rest, Angina, Dizziness/Lightheadedness, Heart Arrhythmia/Irregularities, Appetite - Special Diet - just trying to be more careful of what I am eating, Sexual Changes - Pain Is Patient Pain Free?: No Pain Location: lower extremity - open ulcerated wound on left calf area, painful. Being treated in the [facility]. Pain Level: 3/10 Risk Factor Assessment - Chief Complaint Chief Complaint: Patient presents to CR today following recent hospitalization for chest pain with subsequent heart catheterization and PCI of the LAD. Patient also has low LVEF 30-35% with a h/o Takotsubo syndrome. - Vital Signs Temperature: 97.3 F Respiratory Rate: 14 Pulse Ox: 97 Blood Pressure: 98/50 - Pulse Pulse Rate: 76 Pulse Rhythm: Regular - Hypertension How long have you been treated?: no Blood Pressure Sitting - Left Arm: 98/50 - Stress Stress: Recent - Blood Cholesterol/Lipids Total Cholesterol (mg/dL) Goal = less than 200 mg/dL: 223 HDL Cholesterol (mg/dL) Goal = less than 40 mg/dL: 88 LDL Cholesterol (mg/dL) Goal = less than 70 mg/dL: 107 Triglycerides (mg/dL) Goal = less than 150 mg/dL: 138 - Obesity Height: 5 ft Weight:: 142 lb Weight in Pounds: 142.0 lbs Weight Source: Standing Scale Body Mass Index (BMI): 27.7 Nutritional Referral for Obesity: No - Physical Inactivity Physical Inactivity: Recreational activity - Risk Stratification Risk Guidelines: Lowest Risk: Risk Factor for Smoking, Risk Factor for Dyslipidemia, Risk Factor for Diabetes, Risk Factor for Hypertension, Risk Factor for Sedentary Lifestyle, Risk Factor for Depression, Moderate Risk: Risk Factor for Obesity, Risk Factor for Sedentary Lifestyle - Family History Family History: Family History (Last Reviewed 11/03/21 @ 16:39 by Page Fulton NP, PSYCHOLOGICAL STRESS EVALUATOR-C) Mother Heart disease ALS (amyotrophic lateral sclerosis) Father Heart disease Motivation - Motivation to Participate On a scale of 1 to 10, how prepared are you to commit to attending program?: 10 What do you see as barriers to successfully being able to complete the program?: leg wound What do you see as the benefits of succesfully completing the program? In other words, what do you hope to get out of participating in the program?: increase endurance, activity; get my life back Are there issues you are dealing with that will interfere with completing the program?: none Do you have a spouse or signficant other, family or friends who will help support you to complete the program?: yes
--- NOTE | 2021-11-19 08:13 | PCM.CR.ITP ---
Diagnosis - General Information Admitting Diagnosis: NSTEMI, PCI w/coronary stenting Secondary Diagnosis: ASHD, Takotsubo Syndrome, HFrEF 30-35%, hypotension Personal Learning Style:: Audio/Visual, Written Barriers to Learning: No Barriers Stage of change r/t lifestyle modifications:: Action Gave educational material for:: Treating Heart Disease, Emotions & Heart Disease, Stress Management & Relaxation, Sleep Disorders & Heart Disease, How The Heart Works, What it means to have Heart Disease, How Coronary Artery Disease is Diagnosed, Heart Procedures, What Heart Medications Do, Risk Factors & Modifications, Living an Active Life, Nutrition - Education/Goals Individual Counseling: Initial Assessment: High Blood Pressure, Overweight/Obesity Cardiac Rehabilitation Goals: 1. Maintain the individual as the primary focus of care. 2. To improve the patient's quality of life. 3. Identification of cardiac risk factors and provide cardiac risk factor management. 4. Enhance the psychosocial status of the patient. 5. Reconditioning enough to allow the patient to resume customary activities. 6. Control symptoms of cardiac disease Personal Goals: Initial Assessment: Improve management of stress and emotions, Improve energy level, Get back to work, or to resume activities faster, Improve knowledge of cardiac disease, Improve muscle strength and endurance, Improve diet and eating habits (eat healthier), Control risk factors (learn risk factor modification) Scale for measuring improvement of personal goals: Enter appropriate number in Comments. 2 = Unchanged. 3 = Slightly Better. 4 = Moderate Improvement. 5 = Met my Goal - Diagnosis & Disease Process Outcomes/Goals: Pt IDs own risk factors & lifestyle modifications by Session 10, Verbalizes symptoms of angina & response by session 3., Pt independently manages Plan/Interventions: Assist Pt to ID & engage in lifestyle modification to reduce CVD risk, Instruct on individual risk factors, Review symptoms of angina & emergency actions, Review secondary diagnosis & identify educational needs. - Safety Referral to Physical Therapy: No Referral to [facility] Case Management: No Fall Risk Assessed:: Yes Assistive Devices:: Cane - Fibromyalgia, leg cramps, osteoporosis. Exercise - Initial Assessment - Visit Date of Eval: 11/19/21 Session #:: 0 - Pre-cardiac rehab evaluation Mets: Pre-: >5 METS for 30 minutes by discharge - Physician Prescribed Exercise Modalities: Treadmill, Airdyne, NuStep Frequency: 3x/week for 12 weeks [36 sessions] Intensity: Resting heart rate plus 20 to 30 beats/ minute Duration: 30 - 45 minutes Current METSs:: 3.0 Target Heart Rate:: Avg. Resting HR +30 BPM Resting Blood Pressure: 96/58 EKG Type: Sinus Tachycardia - Outcomes & Goals Goals:: Verbalizes understanding of THR, RPE & goal METS by session 6, Documents in home exercise log/reports 30 min aerobic 5 day/wk by DC, Demonstrates accurate pulse taking by DC - Intervention & Plan Exercise Program Goals: Instruct on personal THR & RPE, Instruct on MET level & personal MET goal, Show patient to take own pulse /validate performance until accurate, Instruct on home exercise - Physical Activity Home Exercise Physical Activity - Home Exercise: Safe Exercise, Warm-up, Self-monitoring, Cool-Down, Home Exercise > 30 min Daily, Sitting Time <3 hours/daily - Outcomes & Goals Outcomes/Goals: Demonstrates correct Warm-up/exercise Cool-Down (S3) if = 2.5 METs, Verbalizes symptoms of exercise intolerance by Session 3 (S3), Demonstrate safe equipment use (S3) & follows exercise prescrition (6) - Intervention & Plan Plan/Intervention: Instruct warm-up & cool-down if exercising at > 2 METs, Instruct on symptoms of exercise intolerance & actions to take, Instruct & monitor on saf, Assess intial functional capacity & safety risk Nutrition - Initial Assessment - Program Goals Nutrition Program Goals: LDL <100 optimal. 100 - 129 Near optimal. 130 - 159 Borderline High. 160 - 189 High. Total Cholesterol <200 desirable. 200 - 239 Borderline High. >/= 240 High. HDL < 40 Low >/=60 High. Triglycerides <150 desirable. <199 optimal. VlDL 5 - 40. HgbA1C <7%. BMI <25 Patient has diagnosis of Hyperlipidemia (ICD E78)?: Yes - Visit Date of Assessment:: 11/19/21 Session #:: 0 - Pre-cardiac rehab evaluation - Cholesterol/Lipids (Other Core Measures) Triglycerides (mg/dL): 138 Total Cholesterol (mg/dL): 223 LDL Cholesterol (mg/dL): 107 HDL Cholesterol (mg/dL): 88 Determine presence & major risk factors that modify LDL goal: Hypertension or hypertensive medication, Age men > 45 years; women >/= 55 years Outcomes/Goals: Pt IDs own risk factors & lifestyle modifications by Session 10, Verbalizes symptoms of angina & response by session 3., Pt independently manages Intervention/Plan: Instruct on personal lipid levels & lipid goals/NCEP guidelines, Instruct on cholesterol Referral to dietitian:: Yes - Medical Nutrition Therapy - Diabetes (Other Core Measures) Diabetes Type: Not Applicable - Weight Mgt (Other Care) Height: 5 ft Weight:: 142 lb BMI: 27.7 Diagnosis Overweight/Obesity BMI> 30% ICD-10 E66: No Diagnosis High BMI/Morbid Obesity BMI> 35% ICD-10 Z68: No Outcomes/Goals: Pt sets, maintains & shows weight loss goal & trend during rehab Intervention/Plan: Instruct on ideal BMI & set weight loss goal w/patient, Assist pt to ID & incorporate diet changes for weight loss by S9 - Healthy Eating Habits Will attend diet classes:: Yes Outcomes/Goals:: Consume diet rich in vegs,fruits,whole grain/high fiber,fish,lean meat, Limit sat/trans fats,cholesterol & added salts & sugars Intervention/Plan:: Assess current eating habits - Education Gave educational materials for:: Healthy eating Nutrition - 30-Day Assessment Nutrition - 60-Day Assessment Nutrition - 90-Day Assessment Nutrition - Final Assessment Core - Initial Assessment - Visit Date of Eval: 11/19/21 Session #:: 0 - Pre-cardiac rehab evaluation - Medication Compliance Preventative Medication(s):: Aspirin, Clopidogrel/P2Y12 inhibit, Statin/lipid, Beta nicole H/O mental health issues: depression, anxiety, or addiction?: No Doesn?t believe in the benefits of treatment?: No Believes medications are unnecessary or harmful?: No Has a concern about medication side effects?: No Expresses concern over the cost of medications?: No Outcomes/Goals: Verbalizes medications,desired effect & common side effects @ DC, Pt self-reports following medication regimen, Keeps card in wallet w/medications listed by DC Interventions/plans: Instruct on medication effects & side effects, Review medication list w/patient every two weeks, Instruct importance of taking meds as ordered & assist problem solving - Tobacco Use Tobacco Use: Non-smoker - Hypertension Hypertension Diagnosis:: Hypertension ICD-10 I10 Resting Blood Pressure:: 98/50 [place] [employer] Hypertension Guidelines: [place] [employer] Hypertension Guidelines. Normal BP Less than 120/80. Elevated BP 120/80. Hypertension Stage 1: BP 130-139/80-89. Hypertesnion Stage 2: BP 140 or higher/90 or higher. Hypertension Crisis: BP higher than 180/120 Outcomes/Goals: Able to verbalize/achieve optimal blood pressure <130/80, Incorporates diet changes & exercise for blood pressure control by DC Interventions/plan: Instruct on optimal blood pressure, hypertension & medications, Instruct on effects of sodium, alcohol, stress, exercise &hypertension - Tobacco Cessation Referral Smoking Cessation Referral:: No Individual Education/Counseling:: No Education Schedule Given:: Yes Core - 30-Day Assessment Core - 60-Day Assessment Core - 90 Day Assessment Core - Final Assessment Psychosocial - Initial Assess - VIsit Date of Eval: 11/19/21 Session #:: 0 - Pre-cardiac rehab evaluation Not Applicable: Yes History of previous Mental disease:: No - Psychosocial Test Tool Used:: [employer] Power QOL Cardiac, PHQ-9 Questionnaire phq-9 Severity: Severity. 1-4 Minimal Depression. 5-9 Mild Depression. 10-14 Moderate Depression. 15-19 Moderately Sever Depression. 20-27 Severe Depression. Rule: - Referral to Behavioral Health PS - Interventions: Yes Attend Stress Management Classes, No Referral to Behavioral Health if PHQ-9 score >9:, No Referral to [facility], No Referral to Physician if PHQ-9 if score is 5-9: - Outcomes/Goals: See list Psychosocial Outcomes/Goals:: ID's personal stressors & 2 strategies to manage stress by discharge - Intervention/Plan: See List Interventions/Plan:: Assess stressors,coping strategies & signs of derpression on admission, Instruct/assist pt to develop coping & personal stress Mgt strategies, Instruct patient to recognize signs & symptoms of depression, Instruct patient to recog Psychosocial - 30-Day Assess Psychosocial - 60-Day Assess Psychosocial - 90-Day Assess Psychosocial - Final Assessmen Patient Health Questionnaire Initial Assessment 1. Little interest or pleasure in doing things: Several days 2. Feeling down, depressed, or hopeless: Several days 3. Trouble falling or staying asleep, or sleeping too much: Not at all 4. Feeling tired or having little energy: More than half the days 5. Poor appetite or overeating: Not at all 6. Feeling bad about yourself -- or that you are a failure or have let yourself or your family down: Several days 7. Trouble concentrating on things, such as reading the newspaper or watching television: Several days 8. Moving or speaking so slowly that other people could have noticed. Or the opposite - being so fidgety or restless that you have been moving around a lot more than usual: Nearly every day 9. Thoughts that you would be better off , or of hurting yourself in some way: Not at all How difficult have these problems made it for you to do your work, take care of things at home, or get along with other people?: Somewhat difficult Total Score: 9 NATTY-Q SV Test - Statements CAD is a disease of the arteries in the heart: False Examples of risk factors for heart disease: True Angina is chest pain or discomfort: I Don't Know The benefits of resistance training include: True Eating more meat and dairy products: False Anti-platelet medications such as aspirin are important: I Don't Know The only effective way to manage stress: False An exercise warm-up slowly increases heart rate: I Don't Know Prepared, processed foods usually have high sodium: True Depression is common after a heart attack: True The statin medications lower cholesterol: True To control blood pressure, lower the amount of sodium: True If someone gets chest discomfort during walking: False Transfats are partially hydrogenated vegetable oils: I Don't Know Sleep apnea that is not treated increases the risk: False To control cholesterol, one should become a vegetarian: False Someone knows if he/she is exercising at the right level: I Don't Know Diabetes cannot be prevented with exercise & health eating: False Stress is a large risk for heart attack: I Don't Know A diet that can help lower blood pressure is rich in: True - Total Score Total Correct Responses: 14 Self-Efficacy Initial Assessment We would like to know how confident you are in doing certain activities. Please select your confidence level for:: Select your confidence level for the following using the scale 1-10 where 1 is not at all confident and 10 is totally confident. Your score is the average of all 6 responses. Fatigue: How confident are you that you can keep the fatigue caused by your disease from interfering with the things you want to do? Select Number: 1 Physical Discomfort or Pain: How confident are you that you can keep the physical discomfort or pain of your disease from interfering with the things you want to do? Select Number: 1 Emotional Distress: How confident are you that you can keep the emotional distress caused by your disease from interfering with the things you want to do? Select Number: 1 Other Symptoms or Health Problems: How confident are you that you can keep other symptoms or health problems from interfering with the things you want to do? Select Number: 7 Different Tasks and Activities: How confident are you that you can do the different tasks and activities needed to manage your health condition so as to reduce your need to see a doctor? Select Number: 5 Medication: How confident are you that you can do things other than just taking medication to reduce how much your illness affects your everyday life? Select Number: 5 Total Score:: 3 Nutrition Survey - Nutrition Survey Initial Have you lost >10 lbs over the past 2 months without trying?: No Are you following a special diet at home for diabetes, low fat, or low salt?: Yes Are you interested in meeting with a dietitian for help understanding your diet?: Yes Do you eat less than 3 meals a day?: No Do you eat fatty meats ([place], sausage, ribs, etc), fried foods, desserts, large amounts of salad dressings, margarine, butter, or cheese most days?: No Do you have food allergies? [Enter types in comment field]: No Do you eat in restaurants more than 3 times a week?: No Do you season food with salt, seasoning salt, or garlic salt?: No Do you used canned, boxed, frozen meals, or soups, seasoning packets?: No Total Score:: 2
[2021-11-19 08:54] VITALS: BP 98/50; PULSE 76; RESP 14; TEMP 36.3; O2SAT 97; BMI 27.7
[2021-11-19 10:23] VITALS: BP 96/58; BP 98/50; BMI 27.7
== END | disposition home or self-care (01) ==
LOC: CR 08:06
PROVIDERS: PCP Internal Medicine; Referring Provider Internal Medicine Cardiovascular Disease; Visit Provider Internal Medicine Cardiovascular Disease
DX: I51.81 Takotsubo syndrome (principal); I25.2 Old myocardial infarction; Z95.5 Presence of coronary angioplasty implant and graft

== ENCOUNTER 2021-12-01 14:00 | Outpatient (RCR) | payer MEDICARE, SELFPAY ==
[2021-11-07 01:38] VITALS: BP 130/51; PULSE 107; RESP 20; TEMP 36.4
[2021-11-09 10:54] VITALS: BP 130/68; PULSE 105; TEMP 36.1
--- NOTE | 2021-11-09 13:01 | PCM.WC.PN ---
History of Present Illness Date of Service: 11/09/21 Chief Complaint: Left posterior leg wound History of Wound: Patient is a 66 year old female who presents today for evaluation of her left posterior leg wound. She fell walking up her steps in the dark and she hit her anterior left leg very hard on 08/25/21. A few days later she developed a bruise on the back of her left leg. She states that the bruise started to resolve but then she went square dancing two days in a row over the weekend, the wound opened and drained serosanguineous drainage and became very painful and red. She went to the ED on 09/21/[address] scan was performed which showed Laceration or infection with sinus tract posterior medially but no abscess or osteomyelitis. She was started on Doxycycline. She has been placing a dressing that a friend gave her and she brought the packaging, but it is not in [place]ian. She states it is a moist, thick gauze. 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 She lives in [place] but has been staying with family for a few weeks. Surgery 10/07/[address] Verma for - Debridement down to muscle and/or fascia wound 7x7 cm Wound care - Wound VAC at 150 mmHg to be changed Tuesday and at the wound center. She was recently admitted 10/20/21-10/23/21 for non-STEMI, Ischemic cardiomyopathy/Takotsubo cardiomyopathy 25-35%. They were not able to place a stent. She is now on Plavix. Wound care - Wound VAC at 150 mmHg to be changed on Tuesday and at the wound center. Today she denies any fever, chills, nausea or vomiting. Progress of Wound: Left posterior leg ulcer is beefy pink and smaller in size. She would like a break from the wound VAC. Objective Data Objective Data Vital Signs: Vital Signs Temp Pulse Resp BP 97.0 F L 105 H 20 H 130/68 H 11/09/21 10:54 11/09/21 10:54 11/07/21 01:38 11/09/21 10:54 Charges/Coding Procedures Integumentary 111xxx-113xx: 51449 Yin subq tissue 20 sq cm/< Physical Exam Const alert and oriented x3 General Appearance: cooperative HEENT normocephalic Resp normal respiratory effort and normal air movement Effort and Inspection: able to speak in complete sentences Cardio regular rate Peripheral Pulses: dorsalis pedis pulses present bilateral 2+ Extremity full ROM and normal capillary refill Extremity Narrative: +1 non pitting edema of left leg. Peripheral Pulses: Yes dorsalis pedis pulses present Skin Wound Narrative: Left posterior leg wound is beefy pink, it is smaller in size and has decreased in depth. Neuro moves all extremities Psych mental status grossly normal Debridement Note Debridement Note Wound debrided: Posterior leg wound Laterality: Left Wound Grade/Stage: Stage IV Type of Debridement: Excisional debridement Anesthesia Used: 5% Lidocaine Gel Depth: Down to and including healthy tissue and in the subcutaneous layer Percentage of wound debrided: 100 Instrument Used: 5mm curette Tissue Removed: Devitalized tissue and slough Severity: Fat Layer Exposed Amount of bleeding with debridement: Mild Bleeding Controlled with: Compression and gauze Patient tolerated procedure: Patient tolerated procedure well Post-Debridement Measurements and Additional Note: Post-Debridement Measurements/Treatment - Nurse 1 - General Ulcer Assessment Start: 11/09/21 10:48 Freq: Status: Active Protocol: WARREN.KEVIN Activity Type Activity Date Activity User E-sign Co-sign Detail Recorded Client Recorded Date Recorded By Document 11/09/21 10:54 CHAPARRO [id number] 11/09/21 10:58 CHAPARRO 11/09/21 10:54 - Today's Visit Information Type of service Follow-up Visit (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 Any new allergies or adverse reactions No Had a fall/change in ADL's that may No increase risk of falls Signs or symptoms of abuse and/or No neglect since last visit Have you been in the hospital since your No last visit? Has dressing in place as prescribed Yes Has compression in place as prescribed N/A Has offloadiing in place as prescribed N/A Experienced any changes in pain level or No management Left Footwear Regular Shoe Right Footwear Regular Shoe Pain Scale: 0-10 Numeric Is Patient Pain Free? Yes WC - Nurse 1 - General Ulcer Measurement Start: 11/09/21 10:48 Freq: Status: Active Protocol: Activity Type Activity Date Activity User E-sign Co-sign Detail Recorded Client Recorded Date Recorded By Document 11/09/21 10:54 CHAPARRO [id number] 11/09/21 10:58 KR 11/09/21 10:54 Wound Center Nurse 1 #1- L POST LE (TRAUMA/POST FALL) -Current Size (cm) - Length 4.2 -Current Size (cm) - Width 3.5 -Current Size (cm) - Depth 0.2 -Total Square Cm 14.70 -Exudate Amt Large -Exudate Type Serosanguineous -Wound Margin Distinct, Outline Attached -Granulation Amt Large (67-100%) -Granulation Quality Red -Necrosis Amt None Present (0 %) -Texture (Kath-wound Skin Appearance) Assessed, Scarring -Moisture (Kath-wound Skin Appearance) No Abnormality, Assessed -Color (Kath-wound Skin Appearance) No Abnormality, Assessed -Temperature (Kath-wound Skin No Abnormality Appearance) (Pt Warm) -Tenderness on Palpation (Kath-wound No Skin Appearance) -Ulcer Cleansing Soap and Water -Foul Odor after Cleansing No -Anesthetic Used 5% Lidocaine Gel WC - Nurse 2 - General Ulcer CM Notes Start: 11/09/21 10:48 Freq: Status: Active Protocol: Activity Type Activity Date Activity User E-sign Co-sign Detail Recorded Client Recorded Date Recorded By Document 11/09/21 11:16 TIA [id number] 11/09/21 11:19 TIA 11/09/21 11:16 Wound Center Nurse 2 2-right forearm -Correct Patient No -Correct Side, Site, Position No -Correct Procedure No -Procedure Performed No -Post Debridement (cm) - Length 0 -Post Debridement (cm) - Width 0 -Post Debridement (cm) - Depth 0 -Total Square (Post) (cm) 0 -Area of Debridement (cm) - Length 0 -Area of Debridement (cm) - Width 0 -Total Square (Area) (cm) 0 -Wound/Ulcer Outcome Healed- Epithelialized #1- L POST LE (TRAUMA/POST FALL) -Time 11:16 -Correct Patient Yes -Correct Side, Site, Position Yes -Correct Procedure Yes -Procedure Performed Yes -Type of Procedure Debridement -Clinical Debridement Subcutaneous -Tissue Removed Subcutaneous -Post Debridement (cm) - Length 4.5 -Post Debridement (cm) - Width 3.6 -Post Debridement (cm) - Depth 0.2 -Total Square (Post) (cm) 16.20 -Area of Debridement (cm) - Length 4.5 -Area of Debridement (cm) - Width 3.6 -Total Square (Area) (cm) 16.20 -Tunneling No -Undermining/Tunneling No -Circular Undermining No -Wound/Ulcer Outcome Not Healed -Ulcer Cleansing Rinsed/ Irrigated with Saline -Foul Odor after Cleansing No -Bioengineered Tissue No -Bleeding Controlled with Pressure -Treatment Response Procedure Tolerated Well -Offloading No -Debridement - Subq, 1st 20sq cm Yes Pain Scale: 0-10 Numeric Is Patient Pain Free? Yes - Nurse 3 - General Ulcer D/C NN Start: 11/09/21 10:48 Freq: Status: Active Protocol: Activity Type Activity Date Activity User E-sign Co-sign Detail Recorded Client Recorded Date Recorded By Document 11/09/21 10:52 CHAPARRO [id number] 11/09/21 10:52 CHAPARRO Document 11/09/21 11:28 CHAPARRO [id number] 11/09/21 11:29 CHAPARRO 11/09/21 11/09/21 10:52 11:28 Wound Care Nurse 3 2-right forearm -Ulcer Cleansing Rinsed/ Irrigated with Saline -Primary Dressing Applied C Hydrogel ($), Mepilex Border -Mepilex Border 1 #1- L POST LE (TRAUMA/POST FALL) -Ulcer Cleansing Rinsed/ Irrigated with Saline -Primary Dressing Applied Silvercel -Primary Dressing Covered/Secured with Dry Gauze, Secured with Tape -Silvercel 1 Left -Tubular Bandage Double Layer -Size of Tubigrip Used Size D -Size D ($) 2 Pain Scale: 0-10 Numeric Is Patient Pain Free? 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 A debridement was deferred due to her having had an operative debridement by Dr. Verma on 10/07/21. Wound care - Left posterior leg ulcer is wound VAC at 150 mmHg. The dressing is changed at the wound center on Mondays and . Will take a wound VAC holiday for a week, due to patient request. Wound care will be Silvercel covered with gauze daily after washing with soap and water. Compression - Double layer tubigrip. Encouraged increased protein intake. Discussed what is considered protein and that she may need to also increase her fiber or take stool softener to prevent constipation. Start taking Vitamin C 1,000 mg daily. Discussed keeping her leg elevated when sitting to help prevent swelling and to avoid standing for long periods of time. Follow up one week. She is to call or come in sooner if she develops and concerns.
[2021-11-16 10:00] VITALS: BP 128/75; PULSE 68; TEMP 36.4
--- NOTE | 2021-11-16 11:24 | PN.PCM_ITS ---
History of Present Illness Date of Service: 11/16/21 Chief Complaint: Left posterior leg wound History of Wound: Patient is a 66 year old female who presents today for evaluation of her left posterior leg wound. She fell walking up her steps in the dark and she hit her anterior left leg very hard on 08/25/21. A few days later she developed a bruise on the back of her left leg. She states that the bruise started to resolve but then she went square dancing two days in a row over the weekend, the wound opened and drained serosanguineous drainage and became very painful and red. She went to the ED on 09/21/[address] scan was performed which showed Laceration or infection with sinus tract posterior medially but no abscess or osteomyelitis. She was started on Doxycycline. She has been placing a dressing that a friend gave her and she brought the packaging, but it is not in [place]. She states it is a moist, thick gauze. 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 She lives in [place] but has been staying with family for a few weeks. Surgery 10/07/[address] Verma for - Debridement down to muscle and/or fascia wound 7x7 cm Wound care - Wound VAC at 150 mmHg to be changed Tuesday and at the wound center. She was recently admitted 10/20/21-10/23/21 for non-STEMI, Ischemic cardiomyopathy/Takotsubo cardiomyopathy 25-35%. They were not able to place a stent. She is now on Plavix. Wound care - Silvercel covered with gauze daily. Applying for approval for Epifix. Today she denies any fever, chills, nausea or vomiting. Progress of Wound: Left posterior leg ulcer is beefy pink and smaller in size. Wound bed looks great. She took a break from the wound VAC last week and would like not to have it put back on. Objective Data Objective Data Vital Signs: Vital Signs Temp Pulse Resp BP 97.5 F L 68 20 H 128/75 H 11/16/21 10:00 11/16/21 10:00 11/07/21 01:38 11/16/21 10:00 Charges/Coding Procedures Integumentary 111xxx-113xx: 90018 Yin subq tissue 20 sq cm/< Physical Exam Const alert and oriented x3 General Appearance: cooperative HEENT normocephalic Resp normal respiratory effort Effort and Inspection: able to speak in complete sentences Cardio regular rate Peripheral Pulses: dorsalis pedis pulses present bilateral 2+ Extremity full ROM and normal capillary refill Extremity Narrative: +1 non pitting edema of left leg. Peripheral Pulses: Yes dorsalis pedis pulses present Skin Wound Narrative: Left posterior leg wound is beefy pink, it is smaller in size and has decreased in depth. Neuro moves all extremities Psych mental status grossly normal Debridement Note Debridement Note Wound debrided: Posterior leg wound Laterality: Left Wound Grade/Stage: Stage IV Type of Debridement: Excisional debridement Anesthesia Used: 5% Lidocaine Gel Depth: Down to and including healthy tissue and in the subcutaneous layer Percentage of wound debrided: 100 Instrument Used: 5mm curette Tissue Removed: Devitalized tissue and slough Severity: Fat Layer Exposed Amount of bleeding with debridement: Mild Bleeding Controlled with: Compression and gauze Patient tolerated procedure: Patient tolerated procedure well Post-Debridement Measurements and Additional Note: Post-Debridement Measurements/Treatment - Nurse 1 - General Ulcer Assessment Start: 11/09/21 10:48 Freq: Status: Active Protocol: AKIN Activity Type Activity Date Activity User E-sign Co-sign Detail Recorded Client Recorded Date Recorded By Document 11/09/21 10:54 [id number] 11/09/21 10:58 KR Document 11/16/21 10:00 CHAPARRO [id number] 11/16/21 10:02 KR 11/09/21 11/16/21 10:54 10:00 - Today's Visit Information Type of service Follow-up Visit 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-up Visit (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 Any new allergies or adverse reactions No No Had a fall/change in ADL's that may No No increase risk of falls Signs or symptoms of abuse and/or No neglect since last visit Have you been in the hospital since your No No last visit? Has dressing in place as prescribed Yes Yes Has compression in place as prescribed N/A N/A Has offloadiing in place as prescribed N/A N/A Experienced any changes in pain level or No No management Left Footwear Regular Shoe Regular Shoe Right Footwear Regular Shoe Regular Shoe Pain Scale: 0-10 Numeric Is Patient Pain Free? Yes Yes WC - Nurse 1 - General Ulcer Measurement Start: 11/09/21 10:48 Freq: Status: Active Protocol: Activity Type Activity Date Activity User E-sign Co-sign Detail Recorded Client Recorded Date Recorded By Document 11/09/21 10:54 KR [id number] 11/09/21 10:58 KR Document 11/16/21 10:00 KR [id number] 11/16/21 10:02 KR 11/09/21 11/16/21 10:54 10:00 Wound Center Nurse 1 #1- L POST LE (TRAUMA/POST FALL) -Current Size (cm) - Length 4.2 4.5 -Current Size (cm) - Width 3.5 2.4 -Current Size (cm) - Depth 0.2 0.1 -Total Square Cm 14.70 10.80 -Exudate Amt Large Small -Exudate Type Serosanguineous Serosanguineous -Wound Margin Distinct, Distinct, Outline Outline Attached Attached -Granulation Amt Large (67-100%) Large (67-100%) -Granulation Quality Red Red -Necrosis Amt None Present (0 None Present (0 %) %) -Texture (Kath-wound Skin Appearance) Assessed, Assessed, Scarring Scarring -Moisture (Kath-wound Skin Appearance) No Abnormality, No Abnormality, Assessed Assessed -Color (Kath-wound Skin Appearance) No Abnormality, No Abnormality, Assessed Assessed -Temperature (Kath-wound Skin No Abnormality No Abnormality Appearance) (Pt Warm) (Pt Warm) -Tenderness on Palpation (Kath-wound No No Skin Appearance) -Ulcer Cleansing Soap and Water Rinsed/ Irrigated with Saline -Foul Odor after Cleansing No No -Anesthetic Used 5% Lidocaine 5% Lidocaine Gel Gel WC - Nurse 2 - General Ulcer CM Notes Start: 11/09/21 10:48 Freq: Status: Active Protocol: Activity Type Activity Date Activity User E-sign Co-sign Detail Recorded Client Recorded Date Recorded By Document 11/09/21 11:16 [id number] 11/09/21 11:19 Document 11/16/21 10:27 [id number] 11/16/21 10:30 11/09/21 11/16/21 11:16 10:27 Wound Center Nurse 2 2-right forearm -Correct Patient No -Correct Side, Site, Position No -Correct Procedure No -Procedure Performed No -Post Debridement (cm) - Length 0 -Post Debridement (cm) - Width 0 -Post Debridement (cm) - Depth 0 -Total Square (Post) (cm) 0 -Area of Debridement (cm) - Length 0 -Area of Debridement (cm) - Width 0 -Total Square (Area) (cm) 0 -Wound/Ulcer Outcome Healed- Epithelialized #1- L POST LE (TRAUMA/POST FALL) -Time 11:16 10:27 -Correct Patient Yes Yes -Correct Side, Site, Position Yes Yes -Correct Procedure Yes Yes -Procedure Performed Yes Yes -Type of Procedure Debridement Debridement -Clinical Debridement Subcutaneous Subcutaneous -Tissue Removed Subcutaneous Subcutaneous -Post Debridement (cm) - Length 4.5 3.9 -Post Debridement (cm) - Width 3.6 2.2 -Post Debridement (cm) - Depth 0.2 0.3 -Total Square (Post) (cm) 16.20 8.58 -Area of Debridement (cm) - Length 4.5 3.9 -Area of Debridement (cm) - Width 3.6 2.2 -Total Square (Area) (cm) 16.20 8.58 -Tunneling No No -Undermining/Tunneling No No -Circular Undermining No No -Wound/Ulcer Outcome Not Healed Not Healed -Ulcer Cleansing Rinsed/ Rinsed/ Irrigated with Irrigated with Saline Saline -Foul Odor after Cleansing No No -Bioengineered Tissue No No -Bleeding Controlled with Pressure Pressure -Treatment Response Procedure Procedure Tolerated Well Tolerated Well -Offloading No No -Debridement - Subq, 1st 20sq cm Yes Yes Pain Scale: 0-10 Numeric Is Patient Pain Free? Yes Yes - Nurse 3 - General Ulcer D/C NN Start: 11/09/21 10:48 Freq: Status: Active Protocol: Activity Type Activity Date Activity User E-sign Co-sign Detail Recorded Client Recorded Date Recorded By Document 11/09/21 10:52 KR [id number] 11/09/21 10:52 KR Document 11/09/21 11:28 KR [id number] 11/09/21 11:29 KR Document 11/16/21 10:40 KR [id number] 11/16/21 10:40 KR 11/09/21 11/09/21 11/16/21 10:52 11:28 10:40 Wound Care Nurse 3 2-right forearm -Ulcer Cleansing Rinsed/ Irrigated with Saline -Primary Dressing Applied C Hydrogel ($), Mepilex Border -Mepilex Border 1 #1- L POST LE (TRAUMA/POST FALL) -Ulcer Cleansing Rinsed/ Rinsed/ Irrigated with Irrigated with Saline Saline -Primary Dressing Applied Silvercel Silvercel -Primary Dressing Covered/Secured with Dry Gauze, Dry Gauze, Secured with Secured with Tape Tape -Silvercel 1 1 Left -Tubular Bandage Double Layer -Size of Tubigrip Used Size D -Size D ($) 2 Pain Scale: 0-10 Numeric Is Patient Pain Free? 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 A debridement was deferred due to her having had an operative debridement by Dr. Verma on 10/07/21. Wound care - Wound care will be Silvercel covered with gauze daily after washing with soap and water. Will discontinue the wound VAC, which she can send back. She would benefit from an advanced wound healing product, such as Epifix to help expedite her wound healing now that her wound bed is stable. Compression - Double layer tubigrip. She started cardiac rehab this week. Instructed her that she needs to wear her compression during her exercising. Encouraged increased protein intake. Discussed what is considered protein and that she may need to also increase her fiber or take stool softener to prevent constipation. Start taking Vitamin C 1,000 mg daily. Discussed keeping her leg elevated when sitting to help prevent swelling and to avoid standing for long periods of time. Follow up one week. She is to call or come in sooner if she develops and concerns.
[2021-11-24 13:02] VITALS: BP 127/89; PULSE 68; TEMP 36.2
--- NOTE | 2021-11-24 16:15 | PCM.WC.PN ---
History of Present Illness Date of Service: 11/24/21 Chief Complaint: Left posterior leg wound History of Wound: Patient is a 66 year old female who presents today for evaluation of her left posterior leg wound. She fell walking up her steps in the dark and she hit her anterior left leg very hard on 08/25/21. A few days later she developed a bruise on the back of her left leg. She states that the bruise started to resolve but then she went square dancing two days in a row over the weekend, the wound opened and drained serosanguineous drainage and became very painful and red. She went to the ED on 09/21/[address] scan was performed which showed Laceration or infection with sinus tract posterior medially but no abscess or osteomyelitis. She was started on Doxycycline. She has been placing a dressing that a friend gave her and she brought the packaging, but it is not in [place]. She states it is a moist, thick gauze. 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 She lives in [place] but has been staying with family for a few weeks. Surgery 10/07/[address] Verma for - Debridement down to muscle and/or fascia wound 7x7 cm Wound care - She has been approved for Epifix. She was recently admitted 10/20/21-10/23/21 for non-STEMI, Ischemic cardiomyopathy/Takotsubo cardiomyopathy 25-35%. They were not able to place a stent. She is now on Plavix. Wound care - Silvercel covered with gauze daily. Applying for approval for Epifix. Today she denies any fever, chills, nausea or vomiting. Progress of Wound: Left posterior leg ulcer is beefy pink and smaller in size. She has started cardiac rehab and states she is doing well with that. Objective Data Objective Data Vital Signs: Vital Signs Temp Pulse Resp BP 97.1 F L 68 20 H 127/89 H 11/24/21 13:02 11/24/21 13:02 11/07/21 01:38 11/24/21 13:02 Charges/Coding Procedures Integumentary 150xxx-152xx: 61601 Skin sub graft trnk/arm/leg Debridement Note Debridement Note Wound debrided: Posterior leg wound Laterality: Left Wound Grade/Stage: Stage IV Type of Debridement: Excisional debridement Anesthesia Used: 5% Lidocaine Gel Depth: Down to and including healthy tissue and in the subcutaneous layer Percentage of wound debrided: 100 Instrument Used: 3mm curette Tissue Removed: Devitalized tissue and slough Severity: Fat Layer Exposed Amount of bleeding with debridement: Mild Bleeding Controlled with: Compression and gauze Patient tolerated procedure: Patient tolerated procedure well Post-Debridement Measurements and Additional Note: Post-Debridement Measurements/Treatment - Nurse 1 - General Ulcer Assessment Start: 11/09/21 10:48 Freq: Status: Active Protocol: AKIN Activity Type Activity Date Activity User E-sign Co-sign Detail Recorded Client Recorded Date Recorded By Document 11/09/21 10:54 KR [id number] 11/09/21 10:58 KR Document 11/16/21 10:00 KR [id number] 11/16/21 10:02 KR Document 11/24/21 13:02 KR [id number] 11/24/21 13:07 KR 11/09/21 11/16/21 11/24/21 10:54 10:00 13:02 - Today's Visit Information Type of service Follow-up Visit Follow-up Visit Follow-up Visit (Physician/HONING MACHINE TRY OUT SETTER (Physician/HONING MACHINE TRY OUT SETTER (Physician/HONING MACHINE TRY OUT SETTER ) ) ) Arrival Mode Ambulatory Ambulatory Ambulatory Patient Identification Verified (Name & Yes Yes Yes ) Vital Signs Temperature (97.8 F-99.1 F) 97.0 F L 97.5 F L 97.1 F L Temperature Source Temporal Temporal Temporal Pulse Rate (60-100) 105 H 68 68 Pulse Location Monitor Monitor Monitor Blood Pressure (90/60-120/80) 130/68 H 128/75 H 127/89 H Blood Pressure Mean (mm Hg) 88 92 101 Source Monitor Monitor Monitor Position Sitting Sitting Semi-Fowlers Blood Pressure Location Right Arm Left Arm Left Arm History Since Last Visit- (Skip if this is Patient's initial visit) Have you changed medications since your No No No last visit? Any new allergies or adverse reactions No No No Had a fall/change in ADL's that may No No No increase risk of falls Signs or symptoms of abuse and/or No No neglect since last visit Have you been in the hospital since your No No No last visit? Has dressing in place as prescribed Yes Yes Yes Has compression in place as prescribed N/A N/A Yes Has offloadiing in place as prescribed N/A N/A N/A Experienced any changes in pain level or No No No management Left Footwear Regular Shoe Regular Shoe Regular Shoe Right Footwear Regular Shoe Regular Shoe Regular Shoe Pain Scale: 0-10 Numeric Is Patient Pain Free? Yes Yes Yes WC - Nurse 1 - General Ulcer Measurement Start: 11/09/21 10:48 Freq: Status: Active Protocol: Activity Type Activity Date Activity User E-sign Co-sign Detail Recorded Client Recorded Date Recorded By Document 11/09/21 10:54 KR [id number] 11/09/21 10:58 KR Document 11/16/21 10:00 KR [id number] 11/16/21 10:02 KR Document 11/24/21 13:02 KR [id number] 11/24/21 13:07 KR 11/09/21 11/16/21 11/24/21 10:54 10:00 13:02 Wound Center Nurse 1 #1- L POST LE (TRAUMA/POST FALL) -Current Size (cm) - Length 4.2 4.5 2.5 -Current Size (cm) - Width 3.5 2.4 1.1 -Current Size (cm) - Depth 0.2 0.1 0.1 -Total Square Cm 14.70 10.80 2.75 -Exudate Amt Large Small Small -Exudate Type Serosanguineous Serosanguineous Serosanguineous -Wound Margin Distinct, Distinct, Distinct, Outline Outline Outline Attached Attached Attached -Granulation Amt Large (67-100%) Large (67-100%) Large (67-100%) -Granulation Quality Red Red Red -Necrosis Amt None Present (0 None Present (0 None Present (0 %) %) %) -Texture (Kath-wound Skin Appearance) Assessed, Assessed, Assessed, Scarring Scarring Scarring -Moisture (Kath-wound Skin Appearance) No Abnormality, No Abnormality, No Abnormality, Assessed Assessed Assessed -Color (Kath-wound Skin Appearance) No Abnormality, No Abnormality, No Abnormality, Assessed Assessed Assessed -Temperature (Kath-wound Skin No Abnormality No Abnormality No Abnormality Appearance) (Pt Warm) (Pt Warm) (Pt Warm) -Tenderness on Palpation (Kath-wound No No No Skin Appearance) -Ulcer Cleansing Soap and Water Rinsed/ Rinsed/ Irrigated with Irrigated with Saline Saline -Foul Odor after Cleansing No No No -Anesthetic Used 5% Lidocaine 5% Lidocaine 5% Lidocaine Gel Gel Gel WC - Nurse 2 - General Ulcer CM Notes Start: 11/09/21 10:48 Freq: Status: Active Protocol: Activity Type Activity Date Activity User E-sign Co-sign Detail Recorded Client Recorded Date Recorded By Document 11/09/21 11:16 [id number] 11/09/21 11:19 Document 11/16/21 10:27 [id number] 11/16/21 10:30 Document 11/24/21 13:24 [id number] 11/24/21 13:33 11/09/21 11/16/21 11/24/21 11:16 10:27 13:24 Wound Center Nurse 2 2-right forearm -Correct Patient No -Correct Side, Site, Position No -Correct Procedure No -Procedure Performed No -Post Debridement (cm) - Length 0 -Post Debridement (cm) - Width 0 -Post Debridement (cm) - Depth 0 -Total Square (Post) (cm) 0 -Area of Debridement (cm) - Length 0 -Area of Debridement (cm) - Width 0 -Total Square (Area) (cm) 0 -Wound/Ulcer Outcome Healed- Epithelialized #1- L POST LE (TRAUMA/POST FALL) -Time 11:16 10:27 13:24 -Correct Patient Yes Yes Yes -Correct Side, Site, Position Yes Yes Yes -Correct Procedure Yes Yes Yes -Procedure Performed Yes Yes Yes -Type of Procedure Debridement Debridement Debridement -Clinical Debridement Subcutaneous Subcutaneous Subcutaneous -Tissue Removed Subcutaneous Subcutaneous Subcutaneous -Post Debridement (cm) - Length 4.5 3.9 3 -Post Debridement (cm) - Width 3.6 2.2 2 -Post Debridement (cm) - Depth 0.2 0.3 0.1 -Total Square (Post) (cm) 16.20 8.58 6 -Area of Debridement (cm) - Length 4.5 3.9 3 -Area of Debridement (cm) - Width 3.6 2.2 2 -Total Square (Area) (cm) 16.20 8.58 6 -Tunneling No No No -Undermining/Tunneling No No No -Circular Undermining No No No -Wound/Ulcer Outcome Not Healed Not Healed Not Healed -Ulcer Cleansing Rinsed/ Rinsed/ Rinsed/ Irrigated with Irrigated with Irrigated with Saline Saline Saline -Foul Odor after Cleansing No No No -Bioengineered Tissue No No Yes -Type of Bioengineered Tissue Epifix -Expiration Date 07/08/26 -Product Lot Number [id number] -Percent Used 100 -Lot number of Saline Used [id number] -Bleeding Controlled with Pressure Pressure Pressure -Treatment Response Procedure Procedure Procedure Tolerated Well Tolerated Well Tolerated Well -Offloading No No No -Debridement - Subq, 1st 20sq cm Yes Yes No -Apply Skin Sub - 1st 25 sq cm - Legs 1 -Epifix (per sq cm) 4 Pain Scale: 0-10 Numeric Is Patient Pain Free? Yes Yes Yes - Nurse 3 - General Ulcer D/C NN Start: 11/09/21 10:48 Freq: Status: Active Protocol: Activity Type Activity Date Activity User E-sign Co-sign Detail Recorded Client Recorded Date Recorded By Document 11/09/21 10:52 [id number] 11/09/21 10:52 KR Document 11/09/21 11:28 KR [id number] 11/09/21 11:29 KR Document 11/16/21 10:40 KR [id number] 11/16/21 10:40 KR Document 11/24/21 13:44 KR [id number] 11/24/21 13:45 KR 11/09/21 11/09/21 11/16/21 10:52 11:28 10:40 Wound Care Nurse 3 2-right forearm -Ulcer Cleansing Rinsed/ Irrigated with Saline -Primary Dressing Applied C Hydrogel ($), Mepilex Border -Mepilex Border 1 #1- L POST LE (TRAUMA/POST FALL) -Ulcer Cleansing Rinsed/ Rinsed/ Irrigated with Irrigated with Saline Saline -Primary Dressing Applied Silvercel Silvercel -Primary Dressing Covered/Secured with Dry Gauze, Dry Gauze, Secured with Secured with Tape Tape -Mepilex Border -Silvercel 1 1 Left -Tubular Bandage Double Layer -Size of Tubigrip Used Size D -Size D ($) 2 Pain Scale: 0-10 Numeric Is Patient Pain Free? Yes Yes Yes WC - Visit Discharge Discharge Condition Stable Stable Stable Ambulatory Status Ambulatory Ambulatory Ambulatory Transportation Private Auto Private Auto Private Auto Accompanied by friend 11/24/21 13:44 Wound Care Nurse 3 2-right forearm -Ulcer Cleansing -Primary Dressing Applied -Mepilex Border #1- L POST LE (TRAUMA/POST FALL) -Ulcer Cleansing Rinsed/ Irrigated with Saline -Primary Dressing Applied Mepilex Border -Primary Dressing Covered/Secured with -Mepilex Border 1 -Silvercel Left -Tubular Bandage Double Layer -Size of Tubigrip Used Size D -Size D ($) 2 Pain Scale: 0-10 Numeric Is Patient Pain Free? 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 Wound care - She was approved for Epifix. Epifix #1 placed today, 100% of the product used. After moistening the Epifix with saline, also placed collagen hydrogel to help keep it moistened. Topped with a wound veil that was secured with Dermabond since she has an adhesive allergy. Covered with Mepilex dressing. Compression - Double layer tubigrip. She started cardiac rehab and is doing well. Instructed her that she needs to wear her compression during her exercising. Encouraged increased protein intake. Discussed what is considered protein and that she may need to also increase her fiber or take stool softener to prevent constipation. Start taking Vitamin C 1,000 mg daily. Discussed keeping her leg elevated when sitting to help prevent swelling and to avoid standing for long periods of time. Follow up one week. She is to call or come in sooner if she develops and concerns.
[2021-12-01 13:49] VITALS: BP 108/65; PULSE 112; RESP 18; TEMP 35.9
--- NOTE | 2021-12-01 16:02 | PCM.WC.PN ---
History of Present Illness Date of Service: 12/01/21 Chief Complaint: Left posterior leg wound History of Wound: Patient is a 66 year old female who presents today for evaluation of her left posterior leg wound. She fell walking up her steps in the dark and she hit her anterior left leg very hard on 08/25/21. A few days later she developed a bruise on the back of her left leg. She states that the bruise started to resolve but then she went square dancing two days in a row over the weekend, the wound opened and drained serosanguineous drainage and became very painful and red. She went to the ED on 09/21/[address] scan was performed which showed Laceration or infection with sinus tract posterior medially but no abscess or osteomyelitis. She was started on Doxycycline. She has been placing a dressing that a friend gave her and she brought the packaging, but it is not in [place]. She states it is a moist, thick gauze. 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 She lives in [place] but has been staying with family for a few weeks. Surgery 10/07/[address] Verma for - Debridement down to muscle and/or fascia wound 7x7 cm Wound care - She has been approved for Epifix. She was recently admitted 10/20/21-10/23/21 for non-STEMI, Ischemic cardiomyopathy/Takotsubo cardiomyopathy 25-35%. They were not able to place a stent. She is now on Plavix. Wound care - Epifix was approved. Epifix #2 was applied today. Today she denies any fever, chills, nausea or vomiting. Progress of Wound: Left posterior leg ulcer has shown much improvement since last week with her first application of Epifix. Right arm remains healed. Objective Data Objective Data Vital Signs: Vital Signs Temp Pulse Resp BP 96.7 F L 112 H 18 108/65 12/01/21 13:49 12/01/21 13:49 12/01/21 13:49 12/01/21 13:49 Charges/Coding Procedures Integumentary 150xxx-152xx: 70217 Skin sub graft trnk/arm/leg Debridement Note Debridement Note Wound debrided: Posterior leg wound Laterality: Left Wound Grade/Stage: Stage II Type of Debridement: Excisional debridement Anesthesia Used: 5% Lidocaine Gel Depth: Down to and including healthy tissue and in the subcutaneous layer Percentage of wound debrided: 100 Instrument Used: 3mm curette Tissue Removed: Devitalized tissue and slough Severity: Fat Layer Exposed Amount of bleeding with debridement: Mild Bleeding Controlled with: Compression and gauze Patient tolerated procedure: Patient tolerated procedure well Post-Debridement Measurements and Additional Note: Post-Debridement Measurements/Treatment - Nurse 1 - General Ulcer Assessment Start: 11/09/21 10:48 Freq: Status: Active Protocol: AKIN Activity Type Activity Date Activity User E-sign Co-sign Detail Recorded Client Recorded Date Recorded By Document 11/09/21 10:54 KR [id number] 11/09/21 10:58 KR Document 11/16/21 10:00 KR [id number] 11/16/21 10:02 KR Document 11/24/21 13:02 KR [id number] 11/24/21 13:07 KR Document 12/01/21 13:49 DL [id number] 12/01/21 14:18 DL 11/09/21 11/16/21 11/24/21 10:54 10:00 13:02 - Today's Visit Information Type of service Follow-up Visit Follow-up Visit Follow-up Visit (Physician/CHARM FILTER OPERATOR HELPER (Physician/CHARM FILTER OPERATOR HELPER (Physician/CHARM FILTER OPERATOR HELPER ) ) ) Arrival Mode Ambulatory Ambulatory Ambulatory Transfer Assistance Patient Identification Verified (Name & Yes Yes Yes ) Patient Requires Transmission-Based Precautions Vital Signs Temperature (97.8 F-99.1 F) 97.0 F L 97.5 F L 97.1 F L Temperature Source Temporal Temporal Temporal Pulse Rate (60-100) 105 H 68 68 Pulse Location Monitor Monitor Monitor Respiratory Rate (12-18) Respiratory rate source Blood Pressure (90/60-120/80) 130/68 H 128/75 H 127/89 H Blood Pressure Mean (mm Hg) 88 92 101 Source Monitor Monitor Monitor Position Sitting Sitting Semi-Fowlers Blood Pressure Location Right Arm Left Arm Left Arm History Since Last Visit- (Skip if this is Patient's initial visit) Have you changed medications since your No No No last visit? Any new allergies or adverse reactions No No No Had a fall/change in ADL's that may No No No increase risk of falls Signs or symptoms of abuse and/or No No neglect since last visit Have you been in the hospital since your No No No last visit? Has dressing in place as prescribed Yes Yes Yes Has compression in place as prescribed N/A N/A Yes Has offloadiing in place as prescribed N/A N/A N/A Experienced any changes in pain level or No No No management Left Footwear Regular Shoe Regular Shoe Regular Shoe Right Footwear Regular Shoe Regular Shoe Regular Shoe Pain Scale: 0-10 Numeric Is Patient Pain Free? Yes Yes Yes 12/01/21 13:49 WC - Today's Visit Information Type of service Follow-up Visit (Physician/CHARM FILTER OPERATOR HELPER ) Arrival Mode Ambulatory,Cane Transfer Assistance None Patient Identification Verified (Name & Yes ) Patient Requires Transmission-Based No Precautions Vital Signs Temperature (97.8 F-99.1 F) 96.7 F L Temperature Source Temporal Pulse Rate (60-100) 112 H Pulse Location Respiratory Rate (12-18) 18 Respiratory rate source Observation Blood Pressure (90/60-120/80) 108/65 Blood Pressure Mean (mm Hg) 79 Source Monitor Position Blood Pressure Location History Since Last Visit- (Skip if this is Patient's initial visit) Have you changed medications since your No last visit? Any new allergies or adverse reactions No Had a fall/change in ADL's that may No increase risk of falls Signs or symptoms of abuse and/or No neglect since last visit Have you been in the hospital since your No last visit? Has dressing in place as prescribed Yes Has compression in place as prescribed No Has offloadiing in place as prescribed N/A Experienced any changes in pain level or No management Left Footwear Right Footwear Pain Scale: 0-10 Numeric Is Patient Pain Free? Yes - Nurse 1 - General Ulcer Measurement Start: 11/09/21 10:48 Freq: Status: Active Protocol: Activity Type Activity Date Activity User E-sign Co-sign Detail Recorded Client Recorded Date Recorded By Document 11/09/21 10:54 KR [id number] 11/09/21 10:58 KR Document 11/16/21 10:00 KR [id number] 11/16/21 10:02 KR Document 11/24/21 13:02 KR [id number] 11/24/21 13:07 KR Document 12/01/21 13:49 DL [id number] 12/01/21 14:18 DL 11/09/21 11/16/21 11/24/21 10:54 10:00 13:02 Wound Center Nurse 1 #1- L POST LE (TRAUMA/POST FALL) -Current Size (cm) - Length 4.2 4.5 2.5 -Current Size (cm) - Width 3.5 2.4 1.1 -Current Size (cm) - Depth 0.2 0.1 0.1 -Total Square Cm 14.70 10.80 2.75 -Photo Taken -Exudate Amt Large Small Small -Exudate Type Serosanguineous Serosanguineous Serosanguineous -Wound Margin Distinct, Distinct, Distinct, Outline Outline Outline Attached Attached Attached -Granulation Amt Large (67-100%) Large (67-100%) Large (67-100%) -Granulation Quality Red Red Red -Necrosis Amt None Present (0 None Present (0 None Present (0 %) %) %) -Necrotic Tissue Type -Structure Exposed -Texture (Kath-wound Skin Appearance) Assessed, Assessed, Assessed, Scarring Scarring Scarring -Moisture (Kath-wound Skin Appearance) No Abnormality, No Abnormality, No Abnormality, Assessed Assessed Assessed -Color (Kath-wound Skin Appearance) No Abnormality, No Abnormality, No Abnormality, Assessed Assessed Assessed -Temperature (Kath-wound Skin No Abnormality No Abnormality No Abnormality Appearance) (Pt Warm) (Pt Warm) (Pt Warm) -Tenderness on Palpation (Kath-wound No No No Skin Appearance) -Ulcer Cleansing Soap and Water Rinsed/ Rinsed/ Irrigated with Irrigated with Saline Saline -Foul Odor after Cleansing No No No -Anesthetic Used 5% Lidocaine 5% Lidocaine 5% Lidocaine Gel Gel Gel Left Calf (cm) Left Ankle (cm) 12/01/21 13:49 Wound Center Nurse 1 #1- L POST LE (TRAUMA/POST FALL) -Current Size (cm) - Length 2.6 -Current Size (cm) - Width 0.5 -Current Size (cm) - Depth 0.1 -Total Square Cm 1.30 -Photo Taken No -Exudate Amt Small -Exudate Type Serosanguineous -Wound Margin Distinct, Outline Attached -Granulation Amt Medium (34-66%) -Granulation Quality Red -Necrosis Amt Medium (34-66%) -Necrotic Tissue Type Adherent Slough -Structure Exposed N/A -Texture (Kath-wound Skin Appearance) Scarring -Moisture (Kath-wound Skin Appearance) No Abnormality -Color (Kath-wound Skin Appearance) No Abnormality -Temperature (Kath-wound Skin No Abnormality Appearance) (Pt Warm) -Tenderness on Palpation (Kath-wound Skin Appearance) -Ulcer Cleansing Soap and Water -Foul Odor after Cleansing No -Anesthetic Used 4% Lidocaine Solution Left Calf (cm) 35 Left Ankle (cm) 20 WC - Nurse 2 - General Ulcer CM Notes Start: 11/09/21 10:48 Freq: Status: Active Protocol: Activity Type Activity Date Activity User E-sign Co-sign Detail Recorded Client Recorded Date Recorded By Document 11/09/21 11:16 [id number] 11/09/21 11:19 Document 11/16/21 10:27 [id number] 11/16/21 10:30 Document 11/24/21 13:24 [id number] 11/24/21 13:33 Document 12/01/21 14:15 [id number] 12/01/21 14:24 11/09/21 11/16/21 11/24/21 11:16 10:27 13:24 Wound Center Nurse 2 2-right forearm -Correct Patient No -Correct Side, Site, Position No -Correct Procedure No -Procedure Performed No -Post Debridement (cm) - Length 0 -Post Debridement (cm) - Width 0 -Post Debridement (cm) - Depth 0 -Total Square (Post) (cm) 0 -Area of Debridement (cm) - Length 0 -Area of Debridement (cm) - Width 0 -Total Square (Area) (cm) 0 -Wound/Ulcer Outcome Healed- Epithelialized #1- L POST LE (TRAUMA/POST FALL) -Time 11:16 10:27 13:24 -Correct Patient Yes Yes Yes -Correct Side, Site, Position Yes Yes Yes -Correct Procedure Yes Yes Yes -Procedure Performed Yes Yes Yes -Type of Procedure Debridement Debridement Debridement -Clinical Debridement Subcutaneous Subcutaneous Subcutaneous -Tissue Removed Subcutaneous Subcutaneous Subcutaneous -Post Debridement (cm) - Length 4.5 3.9 3 -Post Debridement (cm) - Width 3.6 2.2 2 -Post Debridement (cm) - Depth 0.2 0.3 0.1 -Total Square (Post) (cm) 16.20 8.58 6 -Area of Debridement (cm) - Length 4.5 3.9 3 -Area of Debridement (cm) - Width 3.6 2.2 2 -Total Square (Area) (cm) 16.20 8.58 6 -Tunneling No No No -Undermining/Tunneling No No No -Circular Undermining No No No -Wound/Ulcer Outcome Not Healed Not Healed Not Healed -Ulcer Cleansing Rinsed/ Rinsed/ Rinsed/ Irrigated with Irrigated with Irrigated with Saline Saline Saline -Foul Odor after Cleansing No No No -Bioengineered Tissue No No Yes -Type of Bioengineered Tissue Epifix -Expiration Date 07/08/26 -Product Lot Number [id number] -Percent Used 100 -Lot number of Saline Used [id number] -Bleeding Controlled with Pressure Pressure Pressure -Treatment Response Procedure Procedure Procedure Tolerated Well Tolerated Well Tolerated Well -Offloading No No No -Debridement - Subq, 1st 20sq cm Yes Yes No -Apply Skin Sub - 1st 25 sq cm - Legs 1 -Epifix (per sq cm) 4 -Epifix 18mm Disc Pain Scale: 0-10 Numeric Is Patient Pain Free? Yes Yes Yes 12/01/21 14:15 Wound Center Nurse 2 2-right forearm -Correct Patient -Correct Side, Site, Position -Correct Procedure -Procedure Performed -Post Debridement (cm) - Length -Post Debridement (cm) - Width -Post Debridement (cm) - Depth -Total Square (Post) (cm) -Area of Debridement (cm) - Length -Area of Debridement (cm) - Width -Total Square (Area) (cm) -Wound/Ulcer Outcome #1- L POST LE (TRAUMA/POST FALL) -Time 14:16 -Correct Patient Yes -Correct Side, Site, Position Yes -Correct Procedure Yes -Procedure Performed Yes -Type of Procedure Debridement -Clinical Debridement Subcutaneous -Tissue Removed Subcutaneous -Post Debridement (cm) - Length 1.5 -Post Debridement (cm) - Width 0.4 -Post Debridement (cm) - Depth 0.1 -Total Square (Post) (cm) 0.60 -Area of Debridement (cm) - Length 1.5 -Area of Debridement (cm) - Width 0.4 -Total Square (Area) (cm) 0.60 -Tunneling No -Undermining/Tunneling No -Circular Undermining No -Wound/Ulcer Outcome Not Healed -Ulcer Cleansing Rinsed/ Irrigated with Saline -Foul Odor after Cleansing No -Bioengineered Tissue Yes -Type of Bioengineered Tissue Epifix 18mm Disc -Expiration Date 08/07/26 -Product Lot Number [id number] -Percent Used 100 -Lot number of Saline Used [id number] -Bleeding Controlled with Pressure -Treatment Response Procedure Tolerated Well -Offloading No -Debridement - Subq, 1st 20sq cm No -Apply Skin Sub - 1st 25 sq cm - Legs 1 -Epifix (per sq cm) -Epifix 18mm Disc 3 Pain Scale: 0-10 Numeric Is Patient Pain Free? Yes WC - Nurse 3 - General Ulcer D/C NN Start: 11/09/21 10:48 Freq: Status: Active Protocol: Activity Type Activity Date Activity User E-sign Co-sign Detail Recorded Client Recorded Date Recorded By Document 11/09/21 10:52 [id number] 11/09/21 10:52 KR Document 11/09/21 11:28 KR [id number] 11/09/21 11:29 KR Document 11/16/21 10:40 KR [id number] 11/16/21 10:40 KR Document 11/24/21 13:44 KR [id number] 11/24/21 13:45 KR Document 12/01/21 14:27 [id number] 12/01/21 14:28 11/09/21 11/09/21 11/16/21 10:52 11:28 10:40 Wound Care Nurse 3 2-right forearm -Ulcer Cleansing Rinsed/ Irrigated with Saline -Primary Dressing Applied C Hydrogel ($), Mepilex Border -Mepilex Border 1 #1- L POST LE (TRAUMA/POST FALL) -Ulcer Cleansing Rinsed/ Rinsed/ Irrigated with Irrigated with Saline Saline -Foul Odor after Cleansing -Primary Dressing Applied Silvercel Silvercel -Primary Dressing Covered/Secured with Dry Gauze, Dry Gauze, Secured with Secured with Tape Tape -Mepilex Border -Silvercel 1 1 Left -Compression Wrap -Tubular Bandage Double Layer -Size of Tubigrip Used Size D -Size D ($) 2 Pain Scale: 0-10 Numeric Is Patient Pain Free? Yes Yes Yes WC - Visit Discharge Discharge Condition Stable Stable Stable Ambulatory Status Ambulatory Ambulatory Ambulatory Transportation Private Auto Private Auto Private Auto Accompanied by friend Medication Reconcilliation completed & provided to patient/care provider Clinical Summary of Care Provided 11/24/21 12/01/21 13:44 14:27 Wound Care Nurse 3 2-right forearm -Ulcer Cleansing -Primary Dressing Applied -Mepilex Border #1- L POST LE (TRAUMA/POST FALL) -Ulcer Cleansing Rinsed/ Rinsed/ Irrigated with Irrigated with Saline Saline -Foul Odor after Cleansing No -Primary Dressing Applied Mepilex Border Mepilex Border, NonAdherent Contact Layer -Primary Dressing Covered/Secured with Dry Gauze -Mepilex Border 1 1 -Silvercel Left -Compression Wrap Miquel Wrap -Tubular Bandage Double Layer -Size of Tubigrip Used Size D -Size D ($) 2 Pain Scale: 0-10 Numeric Is Patient Pain Free? 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 Wound care - She was approved for Epifix. Epifix #2 placed today, 18 mm Epifix disc used, 100% of the product used. After moistening the Epifix with saline, also placed collagen hydrogel to help keep it moistened. Topped with adaptic (to help prevent the epifix from drying out) that was secured with Dermabond since she has an adhesive allergy. Covered with Mepilex dressing. Compression - Double layer tubigrip. She started cardiac rehab and is doing well. Instructed her that she needs to wear her compression during her exercising. Encouraged increased protein intake. Discussed what is considered protein and that she may need to also increase her fiber or take stool softener to prevent constipation. Start taking Vitamin C 1,000 mg daily. Discussed keeping her leg elevated when sitting to help prevent swelling and to avoid standing for long periods of time. Follow up one week. She is to call or come in sooner if she develops and concerns.
== END 2021-12-07 23:59 | disposition home or self-care (01) ==
LOC: WC 14:00
PROVIDERS: PCP Internal Medicine; Visit Provider Nurse Practitioner Family
DX: L97.822 Non-pressure chronic ulcer of other part of left lower leg with fat layer exposed (principal); I21.4 Non-ST elevation (NSTEMI) myocardial infarction; E27.1 Primary adrenocortical insufficiency; S41.111A Laceration without foreign body of right upper arm, initial encounter; W10.9XXS Fall (on) (from) unspecified stairs and steps, sequela; K21.9 Gastro-esophageal reflux disease without esophagitis; I73.00 Raynaud's syndrome without gangrene; M79.7 Fibromyalgia; E03.9 Hypothyroidism, unspecified; M85.80 Other specified disorders of bone density and structure, unspecified site; Z79.82 Long term (current) use of aspirin; Z79.02 Long term (current) use of antithrombotics/antiplatelets; Z79.52 Long term (current) use of systemic steroids; Z79.890 Hormone replacement therapy; Z79.899 Other long term (current) drug therapy; Z96.651 Presence of right artificial knee joint
CPT/HCPCS: 11042; 15271; Q4186

== ENCOUNTER 2021-12-07 10:30 | Outpatient (RCR) | payer MEDICARE, SELFPAY ==
[2021-11-19 08:34] VITALS: BMI 27.7
== END 2021-12-07 23:59 ==
LOC: CR 10:30
PROVIDERS: PCP Internal Medicine; Referring Provider Internal Medicine Cardiovascular Disease; Visit Provider Internal Medicine Cardiovascular Disease
DX: I21.4 Non-ST elevation (NSTEMI) myocardial infarction (principal); I25.10 Atherosclerotic heart disease of native coronary artery without angina pectoris; I51.81 Takotsubo syndrome; I95.9 Hypotension, unspecified
CPT/HCPCS: 93798

== ENCOUNTER 2021-12-08 13:28 | Outpatient (RCR) | payer MEDICARE, SELFPAY ==
[2021-11-19 10:23] VITALS: BMI 27.7
[2021-12-08 00:33] VITALS: BP 108/65; PULSE 112; RESP 18; TEMP 35.9
[2021-12-08 13:31] VITALS: BP 109/63; PULSE 85; RESP 16; TEMP 36.6
--- NOTE | 2021-12-08 17:07 | PCM.WC.PN ---
History of Present Illness Date of Service: 12/08/21 Chief Complaint: Left posterior leg wound History of Wound: Patient is a 66 year old female who presents today for evaluation of her left posterior leg wound. She fell walking up her steps in the dark and she hit her anterior left leg very hard on 08/25/21. A few days later she developed a bruise on the back of her left leg. She states that the bruise started to resolve but then she went square dancing two days in a row over the weekend, the wound opened and drained serosanguineous drainage and became very painful and red. She went to the ED on 09/21/[address] scan was performed which showed Laceration or infection with sinus tract posterior medially but no abscess or osteomyelitis. She was started on Doxycycline. She has been placing a dressing that a friend gave her and she brought the packaging, but it is not in [place]. She states it is a moist, thick gauze. 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 She lives in [place] but has been staying with family for a few weeks. Surgery 10/07/[address] Verma for - Debridement down to muscle and/or fascia wound 7x7 cm Wound care - She has been approved for Epifix. She was recently admitted 10/20/21-10/23/21 for non-STEMI, Ischemic cardiomyopathy/Takotsubo cardiomyopathy 25-35%. They were not able to place a stent. She is now on Plavix. Wound care - Epifix was approved. She had two applications of Epifix, which healed her ulcer. Today she denies any fever, chills, nausea or vomiting. Progress of Wound: Left posterior leg ulcer is healed after two applications of Epifix. Objective Data Objective Data Vital Signs: Vital Signs Temp Pulse Resp BP O2 Del Method 97.9 F 85 16 109/63 Room Air 12/08/21 13:31 12/08/21 13:31 12/08/21 13:31 12/08/21 13:31 12/08/21 13:31 Oxygen Delivery Method Room Air Charges/Coding Visit Charges Office Visits / Consults: 47556 OV L3 Est Physical Exam Const alert and oriented x3 General Appearance: cooperative HEENT normocephalic Resp normal respiratory effort Effort and Inspection: able to speak in complete sentences Cardio regular rate Peripheral Pulses: dorsalis pedis pulses present bilateral 2+ Extremity full ROM and normal capillary refill Extremity Narrative: +1 non pitting edema of left leg. Peripheral Pulses: Yes dorsalis pedis pulses present Skin Wound Narrative: Left posterior leg ulcer is healed today. Neuro moves all extremities Psych mental status grossly normal Debridement Note Debridement Note No debridement was completed: No debridement was completed today Post-Debridement Measurements and Additional Note: Post-Debridement Measurements/Treatment WC - Nurse 1 - General Ulcer Assessment Start: 12/08/21 13:31 Freq: Status: Active Protocol: AKIN Activity Type Activity Date Activity User E-sign Co-sign Detail Recorded Client Recorded Date Recorded By Document 12/08/21 13:31 [id number] 12/08/21 13:38 12/08/21 13:31 WC - Today's Visit Information Type of service Follow-up Visit (Physician/RESIDENTIAL SALES ASSOCIATE ) Arrival Mode Ambulatory Transfer Assistance None Accompanied by self Patient Identification Verified (Name & Yes ) Patient Requires Transmission-Based No Precautions Safety Precautions NA Vital Signs Temperature (97.8 F-99.1 F) 97.9 F Temperature Source Temporal Pulse Rate (60-100) 85 Pulse Location Monitor Respiratory Rate (12-18) 16 Respiratory rate source Observation Oxygen Delivery Method Room Air Blood Pressure (90/60-120/80) 109/63 Blood Pressure Mean (mm Hg) 78 Source Monitor Position Sitting Blood Pressure Location Left Forearm History Since Last Visit- (Skip if this is Patient's initial visit) Any new allergies or adverse reactions No Had a fall/change in ADL's that may No increase risk of falls Signs or symptoms of abuse and/or No neglect since last visit Have you been in the hospital since your No last visit? Has dressing in place as prescribed Yes Has compression in place as prescribed N/A Has offloadiing in place as prescribed N/A Experienced any changes in pain level or No management Left Footwear Regular Shoe Right Footwear Regular Shoe Pain Scale: 0-10 Numeric Is Patient Pain Free? Yes WARREN Dalal Nurse 1 - General Ulcer Measurement Start: 12/08/21 13:31 Freq: Status: Active Protocol: Activity Type Activity Date Activity User E-sign Co-sign Detail Recorded Client Recorded Date Recorded By Document 12/08/21 13:31 [id number] 12/08/21 13:38 12/08/21 13:31 Wound Center Nurse 1 #1- L POST LE (TRAUMA/POST FALL) -Combined with other wound No -Current Size (cm) - Length 0.1 -Current Size (cm) - Width 0.1 -Current Size (cm) - Depth 0.1 -Total Square Cm 0.01 -Date of Last Picture (Recall this 12/08/21 field) -Photo Taken Yes -Epithelialization Large 67-100% -Tunneling No -Undermining/Tunneling No -Circular Undermining No -Exudate Amt None Present -Granulation Amt None Present (0 %) -Granulation Quality N/A -Slough/Fibrin Yes -Necrosis Amt Small (1-33%) -Necrotic Tissue Type Adherent Slough -Structure Exposed N/A -Texture (Kath-wound Skin Appearance) Assessed, Scarring -Moisture (Kath-wound Skin Appearance) Assessed,Dry/ Scaly -Color (Kath-wound Skin Appearance) No Abnormality, Assessed -Temperature (Kath-wound Skin No Abnormality Appearance) (Pt Warm) -Tenderness on Palpation (Kath-wound No Skin Appearance) -Ulcer Cleansing Soap and Water -Foul Odor after Cleansing No -Anesthetic Used 5% Lidocaine Gel Lower Limb Edema Present No WC - Nurse 2 - General Ulcer CM Notes Start: 12/08/21 13:31 Freq: Status: Active Protocol: Activity Type Activity Date Activity User E-sign Co-sign Detail Recorded Client Recorded Date Recorded By Document 12/08/21 13:48 [id number] 12/08/21 13:49 12/08/21 13:48 Wound Center Nurse 2 #1- L POST LE (TRAUMA/POST FALL) -Correct Patient No -Correct Side, Site, Position No -Correct Procedure No -Procedure Performed No -Post Debridement (cm) - Length 0 -Post Debridement (cm) - Width 0 -Post Debridement (cm) - Depth 0 -Total Square (Post) (cm) 0 -Area of Debridement (cm) - Length 0 -Area of Debridement (cm) - Width 0 -Total Square (Area) (cm) 0 -Wound/Ulcer Outcome Healed- Epithelialized Pain Scale: 0-10 Numeric Is Patient Pain Free? Yes - Nurse 3 - General Ulcer D/C NN Start: 12/08/21 13:31 Freq: Status: Active Protocol: Activity Type Activity Date Activity User E-sign Co-sign Detail Recorded Client Recorded Date Recorded By Document 12/08/21 13:50 TIA [id number] 12/08/21 13:50 TIA 12/08/21 13:50 Is Patient Pain Free? 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 Wound care - She had 2 applications of Epifix . Her ulcer is healed today. Encourage her to moisturize and massage the ulcer area to help soften the scarring. She should also continue to wear compression while she is active for the next month. Compression - Double layer tubigrip with activity for the next month. She started cardiac rehab and is doing well. Discussed keeping her leg elevated when sitting to help prevent swelling and to avoid standing for long periods of time. Follow up as needed.
== END 2021-12-10 14:39 | disposition home or self-care (01) ==
LOC: WC 13:28
PROVIDERS: PCP Internal Medicine; Visit Provider Nurse Practitioner Family
DX: Z09 Encounter for follow-up examination after completed treatment for conditions other than malignant neoplasm (principal); E27.1 Primary adrenocortical insufficiency; M85.861 Other specified disorders of bone density and structure, right lower leg; I73.00 Raynaud's syndrome without gangrene; E03.9 Hypothyroidism, unspecified; M79.7 Fibromyalgia; K21.9 Gastro-esophageal reflux disease without esophagitis; I25.2 Old myocardial infarction; Z79.52 Long term (current) use of systemic steroids; Z79.02 Long term (current) use of antithrombotics/antiplatelets; Z79.82 Long term (current) use of aspirin; Z79.890 Hormone replacement therapy; Z79.899 Other long term (current) drug therapy; Z96.651 Presence of right artificial knee joint
CPT/HCPCS: 99213; G0463

== ENCOUNTER → 2021-12-18 | Outpatient (CLI) | payer MEDICARE, SELFPAY ==
[2021-12-18 10:26] LABS: BNP,B-Type NATRIURETIC PEPTIDE 84.4 pg/mL (0-100)
[2021-12-18 10:48] LABS: Anion Gap 8 (5-15); BUN 8 mg/dL (7-18); BUN/Creat Ratio 11.9 RATIO (10-20); Calcium,Total 8.7 mg/dL (8.5-10.1); Chloride 109 mmol/L (98-107); Creatinine, Serum 0.67 mg/dL (0.55-1.02); EST Glomerular Filtration Rate 94 mL/min (>60); Est Glom Filt Rate - Afr Amer 113 mL/min (>60); Glucose 133 mg/dL (74-106); Potassium 3.8 mmol/L (3.5-5.1); Sodium Level 142 mmol/L (136-145)
[2021-12-18 11:21] VITALS: BMI 28.0
--- NOTE | 2021-12-18 11:53 | BI_ITS ---
MAMMOGRAPHY - BILATERAL SCREENING REASON FOR EXAM: Female, 66 years old. Routine annual screening examination. PERTINENT HISTORY: Non-contributory. TECHNIQUE: Digital bilateral breast devin (3D mammographic acquisition) in the CC and MLO projections. 2-D mediolateral oblique (MLO) and craniocaudad (CC) views of both breasts were obtained. CAD: Full Field Digital Mammography with Computer Added Detection was performed. COMPARISON: No comparison mammograms available at this time. If any prior films become available, an addendum to this report can be generated. FINDINGS: Breast Composition: There are scattered areas of fibroglandular density. There are no dominant masses or suspicious calcifications. 3 mm nodular density in the deep central axillary region of the right breast. This most likely represents a small cyst. Correlation with ultrasound is recommended. No other significant abnormalities are identified. BI/SCRN MAMM (CAD)W/DEVIN BILAT IMPRESSION: 3 mm nodular density in the deep central axillary region of the right breast. Correlation with ultrasound is recommended. ASSESSMENT CATEGORY: BIRADS Category 0: Incomplete. Need additional imaging evaluation. A letter regarding these results will be sent to the patient by the facility within 30 days. Approximately 10% of breast cancers are not detected by mammography. A normal mammogram should not delay biopsy of a clinically suspicious abnormality. [id number] Electronically Signed: Jewel Lutz MD at 13:05 EST ,
== END | disposition home or self-care (01) ==
LOC: OPBI 11:53
PROVIDERS: Nurse Practitioner Gerontology; PCP Internal Medicine; Referring Provider Internal Medicine; Visit Provider Internal Medicine
DX: Z12.31 Encounter for screening mammogram for malignant neoplasm of breast (principal); I51.81 Takotsubo syndrome
CPT/HCPCS: 36415; 77063; 77067; 80048; 83880

== ENCOUNTER → 2021-12-21 | Outpatient (CLI) | payer MEDICARE, SELFPAY ==
[2021-12-18 11:21] VITALS: BMI 28.0
--- NOTE | 2021-12-21 12:18 | US_ITS ---
STUDY: ULTRASOUND BREAST - RIGHT REASON FOR EXAM: Female, 66 years old. Abnormal screening mammogram. TECHNIQUE: Axial and longitudinal images of the RIGHT breast were performed with a high resolution ultrasound transducer. # OF IMAGES: 25 COMPARISON: Comparison is made with prior study dated 12/18/2021. FINDINGS: RIGHT Breast: The mammographic abnormality corresponds to a 4 mm x 3.5 mm x 2 mm cyst in the axillary region of the breast. Incidental note is made of a 2 cm x 1.7 cm x 1 cm benign appearing lymph node. US/Breast Limited Unilateral IMPRESSION: The mammographic abnormality corresponds to a 4 mm x 3.5 mm x 2 mm cyst in the axillary region of the breast. Incidental note is made of a 2 cm x 1.7 cm x 1 cm benign-appearing lymph node. ASSESSMENT CATEGORY: Electronically Signed: Jewel Lutz MD at 14:57 EST ,
== END | disposition home or self-care (01) ==
LOC: OPUS 12:16
PROVIDERS: PCP Internal Medicine; Visit Provider Internal Medicine
DX: N63.15 Unspecified lump in the right breast, overlapping quadrants (principal); I25.2 Old myocardial infarction; I25.10 Atherosclerotic heart disease of native coronary artery without angina pectoris; I51.81 Takotsubo syndrome; I95.9 Hypotension, unspecified
CPT/HCPCS: 76642; 93798

== ENCOUNTER → 2021-12-24 | Outpatient (CLI) | payer MEDICARE, SELFPAY ==
[2021-11-19 10:23] VITALS: BMI 27.7
[2021-12-18 11:21] VITALS: BMI 28.0
--- NOTE | 2021-12-24 10:11 | US_ITS ---
STUDY: ABDOMINAL ULTRASOUND - RIGHT UPPER QUADRANT REASON FOR VISIT: Female, 66 years old elevated liver enzymes . Status post cholecystectomy. TECHNIQUE: Ultrasound evaluation of the right upper quadrant was performed with real-time and static carvalho-scale imaging. TECHNICAL QUALITY: Adequate. COMPARISON: None. FINDINGS: Liver: The liver measures 12.3 cm. There is increased echogenicity consistent with fatty infiltration. The bile ducts are within normal limits. There is hepatic color flow. The direction of portal flow is hepatopetal. There is no demonstrated mass lesion. Gallbladder: The patient is status post cholecystectomy. Common Bile Duct (C.B.D.): The common bile duct measures 3 mm. Pancreas: Normal size of the head, body and tail of the pancreas. There is increased echogenicity of the pancreas. There is no demonstrated pancreatic mass or cyst. Right Kidney: Normal size of the right kidney. The right kidney measures 9.2 cm x 3.9 cm x 4.5 cm. Normal renal cortex. The right cortex measures 1.3 cm. There is no demonstrated renal mass or cyst. There is no right hydronephrosis. US/Liver IMPRESSION: Normal right upper quadrant ultrasound examination. Electronically Signed: Jewel Lutz MD at 12:26 EST ,
== END | disposition home or self-care (01) ==
PROVIDERS: PCP Internal Medicine; Referring Provider Internal Medicine; Visit Provider Internal Medicine
DX: R74.8 Abnormal levels of other serum enzymes (principal)
CPT/HCPCS: 76705

== ENCOUNTER 2021-12-25 10:30 | Outpatient (RCR) | payer MEDICARE, SELFPAY ==
[2021-11-19 10:23] VITALS: BMI 27.7
--- NOTE | 2021-12-18 11:08 | PCM.CR.ITP ---
Diagnosis Exercise - 30-day Assessment - Visit Date of Eval: 12/18/21 Session #:: 12 - Physician Prescribed Exercise Modalities: Treadmill, Airdyne, NuStep, SciFit Frequency: 3x/week for 12 weeks [36 sessions] Intensity: 60-80% of age predicted maximum heart rate reserve Current METSs:: 3.5 Target Heart Rate:: 101-132 Current RPE:: 12-13 Maximum Excercise HR:: 118 Resting Blood Pressure: 124/70 Maximum Exercise Blood Pressure: 124/70 - Outcomes & Goals Goals:: Verbalizes understanding of THR, RPE & goal METS by session 6, Documents in home exercise log/reports 30 min aerobic 5 day/wk by DC, Demonstrates accurate pulse taking by DC, Other additional outcome/goals: see below - Intervention & Plan Exercise Program Goals: Instruct on personal THR & RPE, Instruct on MET level & personal MET goal, Show patient to take own pulse /validate performance until accurate, Instruct on home exercise, Other additional plan/int - 30-day Reassessments 30 day Reassessments:: Progressing - MET's explained - Physical Activity Home Exercise Physical Activity - Home Exercise: Safe Exercise, Warm-up, Self-monitoring, Cool-Down, Home Exercise > 30 min Daily, Sitting Time <3 hours/daily - Outcomes & Goals Outcomes/Goals: Demonstrates correct Warm-up/exercise Cool-Down (S3) if = 2.5 METs, Verbalizes symptoms of exercise intolerance by Session 3 (S3), Demonstrate safe equipment use (S3) & follows exercise prescrition (6), Other: See below - Intervention & Plan Plan/Intervention: Instruct warm-up & cool-down if exercising at > 2 METs, Instruct on symptoms of exercise intolerance & actions to take, Instruct & monitor on saf, Assess intial functional capacity & safety risk, Other See below - 30-day Reassessments 30 day Reassessments:: Progressing - warm up explained Nutrition - Initial Assessment Nutrition - 30-Day Assessment - Program Goals Nutrition Program Goals: LDL <100 optimal. 100 - 129 Near optimal. 130 - 159 Borderline High. 160 - 189 High. Total Cholesterol <200 desirable. 200 - 239 Borderline High. >/= 240 High. HDL < 40 Low >/=60 High. Triglycerides <150 desirable. <199 optimal. VlDL 5 - 40. HgbA1C <7%. BMI <25 Patient has diagnosis of Hyperlipidemia (ICD E78)?: Yes - Visit Date of Assessment:: 12/18/21 Session #:: 12 - Cholesterol/Lipids (Other Core Measures) Determine presence & major risk factors that modify LDL goal: Cigarette smoking, Hypertension or hypertensive medication, Low HDL cholesterol <40 mg/dL*, Family history of premature CHD in Male < 55 years: female <65 yearsFa, Age men > 45 years; women >/= 55 years Outcomes/Goals: Pt IDs own risk factors & lifestyle modifications by Session 10, Verbalizes symptoms of angina & response by session 3., Pt independently manages, Other Additional Outcomes/Goals: Intervention/Plan: Advocate for lipid panel cholesterol medication if applicable, Instruct on personal lipid levels & lipid goals/NCEP guidelines, Instruct on cholesterol, Other additional plan/int 30-day Reassessments:: Progressing - labs encouraged - Diabetes (Other Core Measures) Diabetes Type: Not Applicable - Weight Mgt (Other Care) Height: 5 ft Weight:: 65.091 kg BMI: 28.0 Diagnosis Overweight/Obesity BMI> 30% ICD-10 E66: No Diagnosis High BMI/Morbid Obesity BMI> 35% ICD-10 Z68: No Outcomes/Goals: Pt sets, maintains & shows weight loss goal & trend during rehab, Other additional outcomes/goals Intervention/Plan: Instruct on ideal BMI & set weight loss goal w/patient, Assist pt to ID & incorporate diet changes for weight loss by S9, Refer to Structured Weight Loss program as appropriate, Encourage goal of using 250-300dcal per session for weight loss, Other additional plan/interventions 30 day Reassessments:: Progressing - attending nutrition class - Healthy Eating Habits Will attend diet classes:: Yes Outcomes/Goals:: Consume diet rich in vegs,fruits,whole grain/high fiber,fish,lean meat, Limit sat/trans fats,cholesterol & added salts & sugars, Other additional outcome/goals: Intervention/Plan:: Assess current eating habits, Other Additional plan/interventions 30-day Reassessments:: Progressing - attending nutrition class Nutrition - 60-Day Assessment Nutrition - 90-Day Assessment Nutrition - Final Assessment Core - Initial Assessment Core - 30-Day Assessment - Visit Date of Eval: 12/18/21 Session #:: 12 - Medication Compliance Preventative Medication(s):: Aspirin, Clopidogrel/P2Y12 inhibit, Ticagrelor/P2Y12 inhibitor, Statin/lipid, Beta nicole H/O mental health issues: depression, anxiety, or addiction?: No Doesn?t believe in the benefits of treatment?: No Believes medications are unnecessary or harmful?: No Has a concern about medication side effects?: No Expresses concern over the cost of medications?: No Outcomes/Goals: Verbalizes medications,desired effect & common side effects @ DC, Pt self-reports following medication regimen, Keeps card in wallet w/medications listed by DC, Other additional outcome/goals: Interventions/plans: Instruct on medication effects & side effects, Review medication list w/patient every two weeks, Instruct importance of taking meds as ordered & assist problem solving, Other additional 30-day Reassessments:: Progressing - encouraged to take meds. - Tobacco Use Tobacco Use: Non-smoker - Hypertension Hypertension Diagnosis:: Hypertension ICD-10 I10 - 124/70 [place] [employer] Hypertension Guidelines: [place] [employer] Hypertension Guidelines. Normal BP Less than 120/80. Elevated BP 120/80. Hypertension Stage 1: BP 130-139/80-89. Hypertesnion Stage 2: BP 140 or higher/90 or higher. Hypertension Crisis: BP higher than 180/120 Peak Exercise Blood Pressure:: 124/70 Outcomes/Goals: Able to verbalize/achieve optimal blood pressure <130/80, Incorporates diet changes & exercise for blood pressure control by DC, Other additional outcomes/goals Interventions/plan: Instruct on optimal blood pressure, hypertension & medications, Instruct on effects of sodium, alcohol, stress, exercise &hypertension, Other additional plan/interventions 30 day Reassessments:: Progressing - encouraged to take meds - Tobacco Cessation Referral Smoking Cessation Referral:: No Individual Education/Counseling:: No Education Schedule Given:: Yes Core - 60-Day Assessment Core - 90 Day Assessment Core - Final Assessment Psychosocial - Initial Assess Psychosocial - 30-Day Assess - VIsit Date of Eval: 12/18/21 Session #:: 12 History of previous Mental disease:: No Psychosocial - 60-Day Assess Psychosocial - 90-Day Assess Psychosocial - Final Assessmen Self-Efficacy Nutrition Survey
[2021-12-18 11:21] VITALS: BP 124/70; BMI 28.0
== END 2022-01-06 23:59 ==
LOC: CR 10:30
PROVIDERS: PCP Internal Medicine; Referring Provider Internal Medicine Cardiovascular Disease; Visit Provider Internal Medicine Cardiovascular Disease
DX: I25.2 Old myocardial infarction (principal); I25.10 Atherosclerotic heart disease of native coronary artery without angina pectoris; I51.81 Takotsubo syndrome
CPT/HCPCS: 93798